=== PATIENT | male | born 1980 | race Caucasian/White ===

== ENCOUNTER 2020-02-21 13:47 | Outpatient (REF) | payer OTHER, SELFPAY | END 2020-02-21 13:48 | disposition home or self-care (01) | LOC: HO.LNP 13:47 | PROVIDERS: Visit Provider Hospitalist | DX: Z20.828 Contact with and (suspected) exposure to other viral communicable diseases (principal) | CPT/HCPCS: U0003 ==

== ENCOUNTER 2020-04-11 13:54 | Outpatient (REF) | payer OTHER, SELFPAY ==
--- NOTE | 2020-04-11 14:00 | XR_ITS ---
EXAMINATION: XR ELBOW, RIGHT CLINICAL INFORMATION: Pain COMPARISON: None TECHNIQUE: AP, lateral, and oblique views of the right elbow. FINDINGS: The bones and soft tissues are normal. No fracture or joint effusion. Alignment is anatomic. Joint spaces are maintained. XR/XR elbow RT 2V IMPRESSION: Normal right elbow.
== END 2020-04-11 13:55 | disposition home or self-care (01) ==
LOC: HO.XRAY 13:54
PROVIDERS: PCP Internal Medicine; Visit Provider Internal Medicine
DX: M25.521 Pain in right elbow (principal)
CPT/HCPCS: 73070

== ENCOUNTER → 2020-04-28 12:55 | Outpatient (BNVA) | payer OTHER, SELFPAY | PROVIDERS: PCP Internal Medicine; Visit Provider Physician Assistant | DX: Z76.89 Persons encountering health services in other specified circumstances (principal) ==

== ENCOUNTER 2020-05-18 15:46 | Outpatient (REF) | payer OTHER, SELFPAY ==
--- NOTE | ~2020-05-18 | MR_ITS ---
EXAMINATION: MR ELBOW WITHOUT CONTRAST, RIGHT CLINICAL INFORMATION: Right elbow pain and limited range of motion. COMPARISON: None TECHNIQUE: Multisequence MR imaging of the right elbow was performed without contrast on a high-field strength scanner. FINDINGS: Evaluation is somewhat limited secondary to patient motion. Ulnar collateral ligament: Intact. Common flexor tendon: Intact. Radial collateral ligament: Intact. Common extensor tendon: Intact. Biceps/triceps tendon: Full-thickness tear of the distal biceps tendon with retraction of the tendon fibers and a resultant tendon gap measuring approximately 1.9 cm in craniocaudal dimension. The torn tendon fibers are thickened and irregular. Fluid within the distal tendon sheath. Mild adjacent soft tissue edema. Intact distal triceps tendon. Articular cartilage/bone: Intact. Ulnar nerve: Intact. Joint fluid/soft tissues: Within normal limits. MR/MR elbow RT wo con IMPRESSION: Full-thickness tear of the distal biceps tendon with tendon retraction measuring 1.9 cm in craniocaudal dimension. The torn tendon fibers are thickened and irregular. Mild fluid in the distal tendon sheath with adjacent soft tissue edema.
== END 2020-05-18 15:47 | disposition home or self-care (01) ==
LOC: HO.MRI 15:46
PROVIDERS: Visit Provider Physician Assistant
DX: S46.209A Unspecified injury of muscle, fascia and tendon of other parts of biceps, unspecified arm, initial encounter (principal)
CPT/HCPCS: 73221

== ENCOUNTER → 2020-05-25 13:23 | Outpatient (BNVA) | payer OTHER, SELFPAY | PROVIDERS: Visit Provider Physician Assistant ==

== ENCOUNTER → 2020-06-22 13:28 | Outpatient (BNVA) | payer OTHER, SELFPAY | PROVIDERS: PCP Internal Medicine; Visit Provider Physician Assistant ==

== ENCOUNTER 2020-07-05 10:43 | Outpatient (REF) | payer OTHER, SELFPAY | END 2020-07-05 10:44 | disposition home or self-care (01) | LOC: HO.LAB 10:43 | PROVIDERS: Visit Provider Internal Medicine | DX: Z20.822 Contact with and (suspected) exposure to COVID-19 (principal) | CPT/HCPCS: 36415; C9803; U0003; U0005 ==

== ENCOUNTER → 2020-08-02 13:55 | Outpatient (REF) | payer OTHER, SELFPAY | LOC: HO.SL 13:55 | PROVIDERS: PCP Internal Medicine; Visit Provider Internal Medicine | DX: G47.10 Hypersomnia, unspecified (principal); E66.9 Obesity, unspecified; R06.83 Snoring; R40.0 Somnolence; S46.211A Strain of muscle, fascia and tendon of other parts of biceps, right arm, initial encounter; X58.XXXA Exposure to other specified factors, initial encounter; Y93.9 Activity, unspecified; Y92.9 Unspecified place or not applicable; Y99.8 Other external cause status; Z88.8 Allergy status to other drugs, medicaments and biological substances; M10.9 Gout, unspecified; E78.00 Pure hypercholesterolemia, unspecified; I10 Essential (primary) hypertension; K21.9 Gastro-esophageal reflux disease without esophagitis; F10.10 Alcohol abuse, uncomplicated; E55.9 Vitamin D deficiency, unspecified; F17.210 Nicotine dependence, cigarettes, uncomplicated | CPT/HCPCS: 95806 ==

== ENCOUNTER 2020-08-15 09:30 | Outpatient (RCR) | payer OTHER, SELFPAY ==
--- NOTE | 2020-05-31 15:10 | MHC.OT.OEV ---
[address] [phone] F: [phone] Occupational Therapy Evaluation Diagnosis: Right Bicep Tear Date of Onset: 04/03/20 Attending Provider: Meño Gay PA-C Prescribed Treatment: Eval and Treat MD Follow Up Appointment: History of Current Condition: Tod was shoveling snow for neighbors after a snowstorm, felt a sharp burning pain in right arm, heard a pop and was unable to put any weight through arm. Went to PCP the next day, had x-ray and referred to ortho and MRI. MRI shows full thickness tear of distal bicep. 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 Enjoys fishing, playing hockey Living Situation, Family and/or Social Support: Lives w/ roommates Current Level of Function and Occupation Self Care, Employment, Leisure: Unable to lift anything heavy (more than a cup) Not playing hockey Sleep: Reports some numbness arm is slept on Driving: WFL, uses left hand Pain Assessment Pain Score: 4 Pain Scale Used: Numeric (0 - 10) Pain Location and Description: Burning pain at rest at bicep insertion/cubital fossa Aggravating Factors: Lifting, stiffness in the morning Alleviating Factors: Naproxen Nerve assessment Ulnar Nerve: WNL Median Nerve: WNL Radial Nerve: WNL Sensory Assessment Comments: Reports off and on again numbness/tinging, unspecified digits, worse at night Edema Assessment Upper Extremity: WNL Lower Extremity: WNL Comments: 30.8 cm B/L elbows AROM(PROM) Strength Elbow Flexion: R 148 L 145 Extension: R 8 L 5 Pronation: Supination: R 55 L 70 Comments: Tightness w/ R supination Flexion: R >4 L 5 Extension: R 5 L 5 Pronation: Supination: Comments: Submaximal MMT to bicep Digits Index MCP: PIP: DIP: Long MCP: PIP: DIP: Ring MCP: PIP: DIP: Small MCP: PIP: DIP: Comments: Gross Grasp: R 85lb L 130lb Lateral Pinch: Two-Point Pinch: Three-Jaw John: Comments: Mild discomfort in forearm and distal bicep Patient Education Primary Language: Icelandic 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 Patient demonstrates Patient verbalizes Barriers to Learning: None Readiness for Learning: Accepting Who was educated? Patient Comments: Plan of Care Assessment: 39 yo male presents about 8 weeks s/p right bicep tear while shoveling snow. 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 Elbow flexion tested at submaximal strength due to healing injury and he has been avoiding lifting and heavy gripping/use. He will benefit from cont'd therapy services for progression of strengthening and functional use while protecting healing bicep tear. STG Duration: 2 weeks Short Term Goals: Ind w/ HEP Ind w/ use of ice and heat appropriately Ind w/ joint protection Right gross grasp >90lb Right forearm supination WFL compared to left LTG Duration: 6 weeks Senior Care Goals: QuickDASH score <35 pts Gross grasp >100 lb Pain free w/ lifting >30lb weight box Pt return to work at least light duty conditions Frequency and Duration: The patient will be seen 2x/wk for 6 weeks Treatment Plan: Therapeutic Exercise Therapeutic Activity Home Exercise Program Patient Education Edema Control ADL Training Ultrasound Iontophoresis MHP Cold Packs Soft Tissue Mobilization Kinesiotaping Electronically Signed By: Gwen Renee OTR/L Please sign and return to therapist, Thank you for your referral.
--- NOTE | 2020-08-01 13:17 | MHC.OT.OP ---
[address] [phone] F: [phone] Occupational Therapy Progress Note Diagnosis: Right Bicep Tear Date of Evaluation: 05/31/20 Treatments to Date: 12 Subjective: I cut the weight back a bit I'm seeing Luz Mariaa on Friday, I'm going to ask her to release me for work Pain Score: 3 Pain Location: Right distal bicep w/ use (otherwise painfree at rest) Objective Measures: Gross Grasp R 110lb L 130 lb Quickdash score 41 Status: Progressing Assessment: Four months s/p bicep tear, still w/ moderate pain w/ low weights. 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 Short Term Goals: Ind w/ HEP (met) Ind w/ use of ice and heat appropriately (met) Ind w/ joint protection (met) Right gross grasp >90lb (met) Right forearm supination WFL compared to (met) Salvage Worker Goals: QuickDASH score <35 pts Gross grasp >100 lb (met) Pain free w/ lifting >30lb weight box Pt return to work at least light duty conditions Frequency and Duration: The patient will be seen 2x/wk for 3 weeks Treatment Plan: Therapeutic Exercise Therapeutic Activity Home Exercise Program Patient Education Edema Control ADL Training Ultrasound Iontophoresis MHP Cold Packs Soft Tissue Mobilization Kinesiotaping Electronically Signed By: MAGDA Bueno/Ketan
--- NOTE | 2020-09-18 11:31 | MHC.OT.DC ---
[address] [phone] F: [phone] Occupational Therapy Discharge Note Provider: Meoñ Gay PA-C Diagnosis: Right Bicep Tear Date of Evaluation: 05/31/20 Date of Discharge: 09/18/20 Treatments to Date: 16 Cancellations to Date: 0 No Shows to Date: 0 Discharge Summary: Tod was being seen in OT for conservative treatment of distal bicep tear. He has had low pain w/ light daily activities and was progressing strengthening, but has not been seen in the clinic for over a month. I anticipate he will do well w/ modifications to daily activities for full functional return. Electronically Signed By: Gwen Renee OTR/L Please Sign and return to therapist, thank you for your referral.
== END 2020-09-18 11:32 | disposition other institution (70) ==
LOC: HO.OT 09:30
PROVIDERS: PCP Internal Medicine; Visit Provider Physician Assistant
DX: S46.20 Unspecified injury of muscle, fascia and tendon of other parts of biceps (principal)
CPT/HCPCS: 97033; 97035; 97110; 97140; 97165

== ENCOUNTER → 2020-08-15 10:09 | Outpatient (BNVA) | payer OTHER, SELFPAY | PROVIDERS: PCP Internal Medicine; Visit Provider Internal Medicine ==

== ENCOUNTER → 2020-09-25 09:34 | Outpatient (BNVA) | payer OTHER, SELFPAY | PROVIDERS: PCP Internal Medicine; Visit Provider Internal Medicine ==

== ENCOUNTER 2020-10-29 16:51 | Emergency (ER) | payer OTHER, MEDICAID, SELFPAY ==
--- NOTE | ~2020-10-29 | CT_ITS ---
EXAMINATION: CT ABDOMEN AND PELVIS WITHOUT CONTRAST CLINICAL INFORMATION: Flank pain. Hematuria. COMPARISON: Abdominal ultrasound dated 03/19/2017. TECHNIQUE: Multidetector volumetric imaging was performed from the superior aspect of the liver through the pubic symphysis. Sagittal and coronal reformatted images were obtained on the technologist's workstation. This CT examination was performed using dose optimization techniques as appropriate, variously including the following: Automated exposure control. Adjustment of mA and/or kV according to patient size (this includes techniques or standardized protocols for targeted exams where dose is matched to indication/reason for exam; i.e. extremities or head). Use of iterative reconstruction technique. DLP: 765 mGy-cm FINDINGS: LUNG BASES: The visualized lung bases are unremarkable. LIVER, GALLBLADDER, AND BILIARY TREE: The liver is normal in size, shape, and attenuation. Focal fatty infiltration adjacent to the falciform ligament. No focal hepatic lesion or biliary ductal dilatation is present. The gallbladder is unremarkable with no evidence of radiopaque gallstones, gallbladder wall thickening, or obvious pericholecystic inflammatory changes. PANCREAS: Unremarkable. SPLEEN: Unremarkable. ADRENAL GLANDS: Unremarkable. KIDNEYS AND URETERS: The kidneys are normal in size, shape, and attenuation. No hydronephrosis, hydroureter, or calculi seen. No perinephric stranding. BLADDER: Partially distended and unremarkable. GASTROINTESTINAL TRACT: The colon is nondistended. There is diffuse circumferential bowel wall thickening throughout the colon with adjacent stranding, most prominent at the ascending, transverse, and proximal descending colon. Findings are consistent with acute colitis. There are scattered diverticula. No evidence of perforation or abscess formation. Small, sliding hiatal hernia. No small or large bowel obstruction. Unremarkable appendix. PERITONEAL CAVITY: No intra-abdominal free air or free fluid. No intra-abdominal mass or organized fluid collection/abscess formation. ABDOMINAL WALL: Small, fat-containing right inguinal hernia. Tiny, fat-containing periumbilical hernia. LYMPH NODES: Normal. VASCULAR: Unremarkable. PELVIC VISCERA: The prostate and seminal vesicles are unremarkable. OSSEOUS STRUCTURES: Unremarkable. CT/CT abdomen pelvis wo con IMPRESSION: 1. Diffuse colonic wall thickening with associated stranding/inflammatory change. Findings are consistent with acute colitis. Diverticulosis. No evidence of perforation or abscess formation. 2. Small, sliding hiatal hernia. 3. No intra-abdominal mass, lymphadenopathy, or ascites.
[2020-10-29 17:08] VITALS: BP 146/87; PULSE 66; RESP 18; TEMP 36.7; O2SAT 97; BMI 35.7
[2020-10-29 17:38] LABS: MANUAL DIFF FLAG NO
[2020-10-29 17:39] LABS: Basophils Absolute Auto 0.1 X10*3/uL (0.0-0.2); Basophils Percent Auto 0.5 % (0-2); Eosinophils Absolute Auto 0.1 X10*3/uL (0.0-0.4); Eosinophils Percent Auto 0.7 % (0-4); Hematocrit 45.4 % (42-52); Hemoglobin 15.9 g/dl (14.0-18.0); Imm Gran Abs Auto 0.07 X10*3/uL (0.00-0.03); Imm Gran Pct Auto 0.6 % (0.0-0.4); Lymphocytes Absolute Auto 1.4 X10*3/uL (1.2-4.9); Lymphocytes Percent Auto 12.3 % (20-40); Mean Corpuscular Hemoglobin 31.5 pg (27.0-33.0); Mean Corpuscular Volume 89.9 fL (80-98); Mean Platelet Volume 8.9 fL (9.4-12.4); Monocytes Absolute Auto 1.1 X10*3/uL (0.1-1.2); Monocytes Percent Auto 9.7 % (2-11); Neutrophils Absolute Auto 8.7 X10*3/uL (2.0-8.3); Neutrophils Percent Auto 76.2 % (45-73); Platelet Count 303 X10*3/uL (160-400); Red Blood Count 5.05 X10*6/uL (4.60-5.80); Red Cell Distribution Width 12.7 % (11.0-16.0); White Blood Count 11.4 X10*3/uL (4.8-10.8)
[2020-10-29 17:40] LABS: Glucose Urine UA NEG (NEG); Leukocyte Esterase Urine NEG (NEG); Nitrite Urine NEG (NEG); Specific Gravity - Urine >= 1.030 (1.005-1.025); Urine Blood 2+ (NEG); Urine Ketones NEG (NEG); Urine Protein TRACE MG/DL (NEG-TRACE)
[2020-10-29 17:43] LABS: Appearance Urine CLEAR; Color Urine YELLOW
[2020-10-29 17:51] LABS: RBC Urine 0-2 /HPF (0); Squamous Epithelial Cell Urine 1+ /LPF; WBC Urine 0-2 /HPF (0-4)
[2020-10-29 18:05] LABS: Alanine Aminotransferase 60 U/L (0-40); Albumin Level 4.5 g/dL (3.5-5.0); Alkaline Phosphatase 66 U/L (39-117); Anion Gap 15 (12-20); Aspartate Amino Transferase 38 U/L (5-37); Bilirubin Total 0.4 mg/dL (0.0-1.0); Blood Urea Nitrogen 8 mg/dL (9-16); Calcium 9.8 mg/dL (8.4-10.2); Carbon Dioxide 23 mmol/L (22-29); Chloride 107 mmol/L (96-108); Creatinine Clr Calc Pharmacy 126.2; Estimated Glomerular Filt Rate > 60; Glucose Random 131 mg/dL (60-115); Lipase 16 U/L (8-78); Potassium 3.9 mmol/L (3.3-5.1); Sodium 141 mmol/L (135-145); Total Protein 7.5 g/dL (6.5-8.0)
--- NOTE | 2020-10-29 19:32 | ED.GENADULT ---
HPI - General Adult General Chief complaint: General Medical Stated complaint: Fall/Hit head Source: patient Mode of arrival: ambulatory Limitations: no limitations History of Present Illness HPI narrative: 40-year-old male with past medical history of hypertension, hyperlipidemia, obesity, tobacco dependence, and sleep apnea presents with injury sustained from a fall. Patient stated that he was drinking alcohol yesterday night in excess, tripped and fell, landed on his abdomen in his head. Does not report any head pain or loss of consciousness. States that his abdomen hurts diffusely, has had nausea, vomiting, and a few episodes of diarrhea. He also has not been able to eat or drink because of pain and nausea. Does not report fevers, chills, chest pain or pressure, abdominal distention, dysuria, hematuria, inability to class flatus, dizziness code week is covered changes in vision, or edema. Onset (ago): day(s) Location: abdomen Radiation: non-radiation Severity: moderate Quality: aching and constant Pain Consistency: constant Relieving factors: none Exacerbating factors: eating and movement Associated symptoms: nausea/vomiting Related Data Previous Rx's Medication Instructions Recorded omeprazole 20 mg capsule,delayed 20 mg PO DAILY #180 cap 02/15/20 release fluticasone propionate 110 2 puff PO BID #12 g 03/16/20 mcg/actuation HFA aerosol inhaler albuterol sulfate 90 mcg/actuation 2 puff PO Q6H PRN #8.5 g 05/12/20 aerosol inhaler amoxicillin-pot clavulanate 1 tab PO Q12H 10 Days #20 tab 10/29/20 [Augmentin] oxycodone 5 mg PO Q8H PRN #3 tab 10/29/20 Allergies Allergy/AdvReac Type Severity Reaction Status Date / Time metronidazole [From FLAGYL] Allergy Severe SWELLING Verified 10/29/20 17:07 THROAT Review of Systems Review of Systems: Constitutional: No Weight loss, No Fever, No Chills, No Night Sweats, No Fatigue, No Malaise ENT/Mouth: No Hearing loss, No Ear Pain, No Nasal Congestion, No Sinus Pain, No Hoarseness, No sore throat, No Rhinorrhea, No Swallowing Difficulty Eyes: No Eye Pain, No Swelling, No Redness, No Foreign Body, No Discharge, No Vision Changes Cardiovascular: No Chest Pain, No SOB, No Dyspnea on Exertion, No Orthopnea, No Edema, No Palpitations Respiratory: No Cough, No Sputum, No Wheezing, No Smoke Exposure, No Dyspnea Gastrointestinal: Positive Nausea, Positive Vomiting, positive Diarrhea, positive abdominal Pain, No Hematochezia, No Melena Genitourinary: no irregular bleeding, No Dysuria, No Urinary Frequency, No Hematuria, No Urinary Incontinence, No Urgency, No Flank Pain, No Urinary Flow Changes, No Hesitancy Musculoskeletal: No joint pain, No Myalgias, No Joint Swelling Skin: No Skin Lesions, No rash Neuro: No Weakness, No Numbness, No Paresthesias, No Loss of Consciousness, No Dizziness, No Headache Psych: No Anxiety/Panic, No Depression, No SI/HI/AH/VH, No Social Issues Heme/Lymph: No Bruising, No Bleeding,No Lymphadenopathy Endocrine: No Polyuria, No Polydipsia, No Temperature Intolerance Yes all other systems are reviewed and are negative [facility], [facility] Past Medical History Attestation statement: The following information was validated with the patient. Source: old records reviewed Medical History Alcohol abuse Allergic rhinitis Asthma Fatty liver GERD (gastroesophageal reflux disease) Gout Hypercholesterolemia Hypertension Obesity (BMI 30-39.9) Obesity (BMI 30-39.9) ELIZABETH (obstructive sleep apnea) Tobacco abuse Vitamin D deficiency Surgical History History of inguinal hernia repair Family History Family History Father Hypertension Mother No problems noted. Brother No problems noted. Sister No problems noted. 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 - [employer]. Physical Exam Vital Signs: Vital Signs: Last Vital Signs Temp 98.1 F 10/29/20 22:19 Pulse 55 10/29/20 22:19 Resp 16 10/29/20 22:19 BP 164/94 H 10/29/20 22:19 Pulse Ox 97 10/29/20 22:19 Body Mass Index 35.7 Appearance: Alert. Oriented X3. Moderate acute distress. Eyes: Pupils equal, round and reactive to light. Sclera nonicteric ENT: Pharynx normal. Moist mucous membranes Neck: Normal inspection. Neck supple. No vertebral tenderness or step-offs noted. CVS: Normal heart rate and rhythm. Pulses normal. Respiratory: No respiratory distress. Breath sounds normal. Abdomen: Soft and diffusely tender. Skin: Skin warm and dry. Normal skin color. Normal skin turgor. Extremities: No lower extremity edema. Moves all extremities against resistance. Neuro: No motor deficit. No sensory deficit. Cranial nerves 2-12 intact. Course Course Course Narrative: 40-year-old male presents with abdominal pain, nausea, vomiting, diarrhea. Stated that he did drink excessive amounts of alcohol yesterday and did fall on his abdomen and hit his head. He is diffusely tender to the abdomen, otherwise physical exam is unremarkable, cranial nerves 2-12 intact, no focal neural deficits. Patient is afebrile, slightly hypertensive per baseline, and has normal sinus rhythm. Based on patient's history, there is suspicion for gastritis, gastroenteritis, pancreatitis, kidney stones. Will order CT scan of abdomen and pelvis. CBC indicates a white count of 11.4, AST 30 ALT 60, negative lipase. Negative urinalysis. CT scan of abdomen pelvis indicates colitis. Discussion with patient regarding plan of care, plan is to discharge home with p.o. antibiotics Augmentin. He has anaphylactic Ute allergic to Flagyl. He does understand its he feels worse, is unable to tolerate p.o. fluids that he should return to the emergency department immediately. Patient verbalized understanding of and agrees to plan to discharge home. Medical Decision Making Differential Diagnosis Differential Diagnosis: Gastritis, gastroenteritis, pancreatitis, colitis, renal colic, cholecystit Medical Records Medical records reviewed: Yes I reviewed the patient's medical records. Lab Data Lab results reviewed: Yes I reviewed the patient's lab results. Result diagrams: 10/29/20 17:29 10/29/20 17:29 Labs: Lab Results 10/29/20 10/29/20 10/29/20 Range/Units 17:29 17:29 17:29 WBC 11.4 H (4.8-10.8) X10*3/uL RBC 5.05 (4.60-5.80) X10*6/uL Hgb 15.9 (14.0-18.0) g/dl Hct 45.4 (42-52) % MCV 89.9 (80-98) fL MCH 31.5 (27.0-33.0) pg MCHC 35.0 (31.0-36.0) g/dl RDW 12.7 (11.0-16.0) % Plt Count 303 (160-400) X10*3/uL MPV 8.9 L (9.4-12.4) fL Immature Gran % (Auto) 0.6 H (0.0-0.4) % Neut % (Auto) 76.2 H (45-73) % Lymph % (Auto) 12.3 L (20-40) % Wake % (Auto) 9.7 (2-11) % Eos % (Auto) 0.7 (0-4) % Baso % (Auto) 0.5 (0-2) % Lymph # (Auto) 1.4 (1.2-4.9) X10*3/uL Wake # (Auto) 1.1 (0.1-1.2) X10*3/uL Eos # (Auto) 0.1 (0.0-0.4) X10*3/uL Baso # (Auto) 0.1 (0.0-0.2) X10*3/uL Abs Immat Gran (auto) 0.07 H (0.00-0.03) X10*3/uL Absolute Neuts (auto) 8.7 H (2.0-8.3) X10*3/uL Absolute Nucleated RBC 0.000 (0.0-0.012) X10*3/uL Nucleated RBC % (auto) 0.0 (0.0-0.2) /100WBC Sodium 141 (135-145) mmol/L Potassium 3.9 (3.3-5.1) mmol/L Chloride 107 (96-108) mmol/L Carbon Dioxide 23 (22-29) mmol/L Anion Gap 15 (12-20) BUN 8 L (9-16) mg/dL Creatinine 0.93 (0.5-1.4) mg/dL Estim Creat Clear Calc 126.2 Estimated GFR > 60 Random Glucose 131 H (60-115) mg/dL Calcium 9.8 (8.4-10.2) mg/dL Total Bilirubin 0.4 (0.0-1.0) mg/dL AST 38 H (5-37) U/L ALT 60 H (0-40) U/L Alkaline Phosphatase 66 (39-117) U/L Total Protein 7.5 (6.5-8.0) g/dL Albumin 4.5 (3.5-5.0) g/dL Lipase 16 (8-78) U/L Urine Color YELLOW Urine Appearance CLEAR Urine pH 6.0 (5.0-8.0) Ur Specific [place] >= 1.030 H (1.005-1.025) Urine Protein TRACE (NEG-TRACE) MG/DL Urine Glucose (UA) NEG (NEG) MG/DL Urine Ketones NEG (NEG) MG/DL Urine Blood 2+ H (NEG) Urine Nitrite NEG (NEG) Ur Leukocyte Esterase NEG (NEG) Urine RBC 0-2 (0) /HPF Urine WBC 0-2 (0-4) /HPF Ur Squamous Epith Cells 1+ /LPF Urine Bacteria NONE /LPF Imaging Data CT scan - abdomen: Attestation: I personally reviewed and interpreted this imaging study as follows: Radiologist's impression: EXAMINATION: CT ABDOMEN AND PELVIS WITHOUT CONTRAST CLINICAL INFORMATION: Flank pain. Hematuria. COMPARISON: Abdominal ultrasound dated 03/19/2017. TECHNIQUE: Multidetector volumetric imaging was performed from the superior aspect of the liver through the pubic symphysis. Sagittal and coronal reformatted images were obtained on the technologist's workstation. This CT examination was performed using dose optimization techniques as appropriate, variously including the following: Automated exposure control. Adjustment of mA and/or kV according to patient size (this includes techniques or standardized protocols for targeted exams where dose is matched to indication/reason for exam; i.e. extremities or head). Use of iterative reconstruction technique. DLP: 765 mGy-cm FINDINGS: LUNG BASES: The visualized lung bases are unremarkable. LIVER, GALLBLADDER, AND BILIARY TREE: The liver is normal in size, shape, and attenuation. Focal fatty infiltration adjacent to the falciform ligament. No focal hepatic lesion or biliary ductal dilatation is present. The gallbladder is unremarkable with no evidence of radiopaque gallstones, gallbladder wall thickening, or obvious pericholecystic inflammatory changes. PANCREAS: Unremarkable. SPLEEN: Unremarkable. ADRENAL GLANDS: Unremarkable. KIDNEYS AND URETERS: The kidneys are normal in size, shape, and attenuation. No hydronephrosis, hydroureter, or calculi seen. No perinephric stranding. BLADDER: Partially distended and unremarkable. GASTROINTESTINAL TRACT: The colon is nondistended. There is diffuse circumferential bowel wall thickening throughout the colon with adjacent stranding, most prominent at the ascending, transverse, and proximal descending colon. Findings are consistent with acute colitis. There are scattered diverticula. No evidence of perforation or abscess formation. Small, sliding hiatal hernia. No small or large bowel obstruction. Unremarkable appendix. PERITONEAL CAVITY: No intra-abdominal free air or free fluid. No intra-abdominal mass or organized fluid collection/abscess formation. ABDOMINAL WALL: Small, fat-containing right inguinal hernia. Tiny, fat-containing periumbilical hernia. LYMPH NODES: Normal. VASCULAR: Unremarkable. PELVIC VISCERA: The prostate and seminal vesicles are unremarkable. OSSEOUS STRUCTURES: Unremarkable. CT/CT abdomen pelvis wo con IMPRESSION: 1. Diffuse colonic wall thickening with associated stranding/inflammatory change. Findings are consistent with acute colitis. Diverticulosis. No evidence of perforation or abscess formation. 2. Small, sliding hiatal hernia. 3. No intra-abdominal mass, lymphadenopathy, or ascites. Discharge Plan Discharge Clinical Impression: Acute colitis Patient Disposition: Home, Self-Care Instructions: Colitis (ED) Additional Instructions: You were evaluated for abdominal pain, nausea and vomiting. CT scan of the abdomen and pelvis indicates colon infection called colitis. Please take Augmentin twice a day for the next 10 days. Prescribed oxycodone for pain management. Uses medication only to sleep this medication is a narcotic and has high risk for addiction and abuse. Do not drive, operate machinery or make important decisions while taking this medication. This medication is also constipating, please drink plenty of fluids and use Colace or MiraLax if you feel constipated. Please follow-up the primary care physician this week. If symptoms get worse or you develop fevers, chills, nausea and vomiting that does not resolve please return to the emergency department immediately. Thank you for choosing this emergency department for evaluation. Please follow-up with primary care physician as needed. Return to the emergency department for any new, concerning, or worsening symptoms. Prescriptions: New amoxicillin-pot clavulanate [Augmentin] 875-125 mg tablet 1 tab PO Q12H 10 Days Qty: 20 RF: 0 oxycodone 5 mg tablet 5 mg PO Q8H PRN (Reason: pain) Qty: 3 RF: 0 No Action omeprazole 20 mg capsule,delayed release(DR/EC) 20 mg PO DAILY Qty: 180 RF: 0 fluticasone propionate [Flovent HFA] 110 mcg/actuation HFA aerosol inhaler 2 puff PO BID Qty: 12 RF: 8 albuterol sulfate 90 mcg/actuation HFA aerosol inhaler 2 puff PO Q6H PRN (Reason: for wheezing) Qty: 8.5 RF: 0 Stand Alone Forms: Work/School Release Interventions: ED Discharge Assessment Last Done: 10/29/20 23:06 Discharge Date/Time: 10/29/20 22:24
[2020-10-29] MEDS: ondansetron HCL 4 MG/2 ML VIAL IVPUSH (20:14)
[2020-10-29] MEDS: 0.9 % Sodium Chloride 1,000 ML 999 ML IVCONT (20:15)
[2020-10-29 22:19] VITALS: BP 164/94; PULSE 55; RESP 16; TEMP 36.7; O2SAT 97
[2020-10-29] MEDS: Amoxicillin/Potassium Clav 875 MG TABLET PO (22:21)
== END 2020-10-29 22:24 | disposition home or self-care (01) ==
PROVIDERS: Emergency Provider Internal Medicine; PCP Internal Medicine
DX: S39.91XA Unspecified injury of abdomen, initial encounter (principal); K52.9 Noninfective gastroenteritis and colitis, unspecified; R10.9 Unspecified abdominal pain; F17.210 Nicotine dependence, cigarettes, uncomplicated; F10.129 Alcohol abuse with intoxication, unspecified; X58.XXXA Exposure to other specified factors, initial encounter; Y93.9 Activity, unspecified; Y92.9 Unspecified place or not applicable; Y99.9 Unspecified external cause status; Z79.899 Other long term (current) drug therapy; Z71.6 Tobacco abuse counseling; Y90.9 Presence of alcohol in blood, level not specified
CPT/HCPCS: 36415; 74176; 80053; 81001; 83690; 85025; 96365; 96375; 99284; J2405

== ENCOUNTER → 2020-11-28 09:06 | Outpatient (BNVA) | payer OTHER, MEDICAID, SELFPAY | PROVIDERS: PCP Internal Medicine; Visit Provider Internal Medicine ==

== ENCOUNTER 2021-03-12 16:32 | Outpatient (REF) | payer OTHER, SELFPAY ==
--- NOTE | ~2021-03-12 | XR_ITS ---
EXAMINATION: XR CHEST CLINICAL INFORMATION: Chest pain. COMPARISON: None TECHNIQUE: 2 views of the chest were obtained. FINDINGS: No significant abnormality is noted involving the heart, lungs, mediastinum, bony thorax or soft tissues. XR/XR chest 2V IMPRESSION: Unremarkable examination.
== END 2021-03-12 16:33 | disposition home or self-care (01) ==
LOC: HO.XRAY 16:32
PROVIDERS: PCP Internal Medicine; Visit Provider Nurse Practitioner Family
DX: R07.89 Other chest pain (principal); M54.9 Dorsalgia, unspecified
CPT/HCPCS: 71046

== ENCOUNTER → 2021-03-28 10:07 | Outpatient (BNVA) | payer OTHER, SELFPAY | PROVIDERS: PCP Internal Medicine; Visit Provider Internal Medicine | DX: J45.909 Unspecified asthma, uncomplicated (principal); J30.9 Allergic rhinitis, unspecified; G47.33 Obstructive sleep apnea (adult) (pediatric); E66.9 Obesity, unspecified; Z68.35 Body mass index [BMI] 35.0-35.9, adult | CPT/HCPCS: 99212 ==

== ENCOUNTER 2021-04-11 16:45 | Outpatient (REF) | payer OTHER, SELFPAY ==
[2021-04-11 18:36] LABS: Influenza A PCR NEGATIVE (Negative); Influenza B PCR NEGATIVE (Negative); Resp Syncy Virus RNA Qual PCR NEGATIVE (Negative); SARS COV2 PCR INHOUSE NEGATIVE (Negative)
== END 2021-04-11 16:46 | disposition home or self-care (01) ==
LOC: HO.LNP 16:45
PROVIDERS: Visit Provider Physician Assistant
DX: Z20.822 Contact with and (suspected) exposure to COVID-19 (principal); R51.9 Headache, unspecified
CPT/HCPCS: 0241U

== ENCOUNTER 2021-04-25 09:28 | Outpatient (REF) | payer OTHER, SELFPAY ==
--- NOTE | ~2021-04-25 | XR_ITS ---
EXAMINATION: XR KNEE, LEFT CLINICAL INFORMATION: Chronic left medial knee pain. Recent injuries. COMPARISON: None TECHNIQUE: Four views of the left knee. FINDINGS: No fracture or dislocation. No suprapatellar joint effusion. Joint spaces well maintained. No significant degenerative changes. No focal soft tissue swelling of the anterior knee. XR/XR knee LT 3V IMPRESSION: Unremarkable radiographs of the left knee.
== END 2021-04-25 09:29 | disposition home or self-care (01) ==
LOC: HO.XRAY 09:28
PROVIDERS: PCP Internal Medicine; Visit Provider Nurse Practitioner Family
DX: M25.562 Pain in left knee (principal)
CPT/HCPCS: 73562

== ENCOUNTER → 2021-06-25 09:34 | Outpatient (BNVA) | payer OTHER, SELFPAY | PROVIDERS: PCP Internal Medicine; Visit Provider Internal Medicine | DX: J45.909 Unspecified asthma, uncomplicated (principal); Z68.34 Body mass index [BMI] 34.0-34.9, adult; G47.33 Obstructive sleep apnea (adult) (pediatric); E66.9 Obesity, unspecified | CPT/HCPCS: 94010; 99212 ==

== ENCOUNTER → 2021-08-20 15:28 | Outpatient (BNVA) | payer OTHER, SELFPAY | PROVIDERS: PCP Internal Medicine; Referring Provider Internal Medicine; Visit Provider Surgery | DX: K40.90 Unilateral inguinal hernia, without obstruction or gangrene, not specified as recurrent (principal); K42.9 Umbilical hernia without obstruction or gangrene | CPT/HCPCS: 99202 ==

== ENCOUNTER 2021-09-20 11:37 | Outpatient (REF) | payer OTHER, SELFPAY ==
--- NOTE | ~2021-09-20 | XR_ITS ---
EXAMINATION: XR TOES, LEFT CLINICAL INFORMATION: Unspecified injury of the left foot COMPARISON: None TECHNIQUE: 3 views of the left toes were obtained. FINDINGS: Mildly displaced slightly oblique fracture involving the distal metadiaphysis of the third proximal phalanx. Joint spaces and alignment are otherwise maintained. Soft tissues are unremarkable. XR/XR toe LT min 2V IMPRESSION: Mildly displaced slightly oblique fracture involving the distal metadiaphysis of the third proximal phalanx.
== END 2021-09-20 11:38 | disposition home or self-care (01) ==
LOC: HO.HMGCX 11:37
PROVIDERS: PCP Internal Medicine; Visit Provider Internal Medicine
DX: S99.922A Unspecified injury of left foot, initial encounter (principal)
CPT/HCPCS: 73660

== ENCOUNTER 2021-10-02 06:04 | Day surgery (SDC) | payer OTHER, SELFPAY ==
[2021-09-25 14:04] VITALS: BMI 33.7
--- NOTE | 2021-10-01 09:44 | P.CONAN_ITS ---
Documented by User: Alyson Rowe NP 10/01/21 09:45 HPI - Anesthesia Eval Consult details Narrative: 41yo M for Left Hernia Repair Umbilical, Hernia Repair Inguinal with mesh PMFSH Active Problems Active Problems: All Active Problems (Updated 09/20/21 @ 11:35 by Jenn Tavera MD) Injury of toe on left foot (Acute) Umbilical hernia (Acute) Inguinal hernia of left side without obstruction or gangrene (Acute) Erectile dysfunction (Acute) Annual physical exam (Acute) Left knee pain (Acute) Headache (Acute) Productive cough (Acute) Right-sided chest wall pain (Acute) Tooth pain (Acute) Right-sided back pain (Acute) Bilateral knee pain (Acute) Colitis (Acute) Asthma (Acute) Allergic rhinitis (Acute) ELIZABETH (obstructive sleep apnea) (Acute) Obesity (BMI 30-39.9) (Acute) Impaired fasting blood sugar (Acute) Hypersomnia (Acute) Annual physical exam (Acute) Hypertension (Acute) Tobacco abuse (Acute) GERD (gastroesophageal reflux disease) (Acute) Hypercholesterolemia (Acute) Obesity (BMI 30-39.9) (Acute) Tear of biceps tendon (Acute) Medial epicondylitis (Acute) Acute sinusitis (Acute) Past Medical History Medical History Alcohol abuse Fatty liver Gout Vitamin D deficiency Family History Family History Father Hypertension Mother No problems noted. Brother No problems noted. Sister No problems noted. Surgical History Surgical History History of inguinal hernia repair Social History Social History Housing: House Are you a primary healthcare corporate account director to a significant other at home: No Do you presently have visiting nurse or other home services: No Alcohol intake: current Alcohol intake frequency: holidays/special occasions only Patient Tobacco Use Status: Current everyday Tobacco user Tobacco use type: Cigarette Cigarettes Per Day: 7 e-Cigarette/Vaping Use: Never Used Second Hand Smoke Exposure: No Use of substances other than those prescribed or required for medical reasons: No Are you DNR?: No Advance Directives: No Advance Directives Information Provided: Yes (brochure mailed) Advance Directives on File: No Eating poorly because of decreased appetite: No Nutrition Risks: No Nutritional Risk service: No Current occupational status: employed 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 - [employer]. Cognitive needs: No Hearing needs: No Vision needs: Yes (Glasses) Meds Allergies Allergy/AdvReac Type Severity Reaction Status Date / Time metronidazole [From FLAGYL] Allergy Severe SWELLING Verified 09/20/21 11:20 THROAT Exam Exam Date and Time: October 01, 2021 0944 Height,Weight and Vital Signs: Height 5 ft 8 in Weight 100.698 kg Assessment and Plan Assessment Anesthesia Assessment: Chart Reviewed Documented by User: Jennifer Cunha MD 10/02/21 07:48 [facility] Active Problems Active Problems: All Active Problems (Updated 09/20/21 @ 11:35 by Jenn Tavera MD) Injury of toe on left foot (Acute) Umbilical hernia (Acute) Inguinal hernia of left side without obstruction or gangrene (Acute) Erectile dysfunction (Acute) Annual physical exam (Acute) Left knee pain (Acute) Headache (Acute) Productive cough (Acute) Right-sided chest wall pain (Acute) Tooth pain (Acute) Right-sided back pain (Acute) Bilateral knee pain (Acute) Colitis (Acute) Asthma (Acute) Allergic rhinitis (Acute) ELIZABETH (obstructive sleep apnea) (Acute)- Uses CPAP machine Obesity (BMI 30-39.9) (Acute) Impaired fasting blood sugar (Acute) Hypersomnia (Acute) Annual physical exam (Acute) Hypertension (Acute)- patient denies Tobacco abuse (Acute) GERD (gastroesophageal reflux disease) (Acute) Hypercholesterolemia (Acute) Obesity (BMI 30-39.9) (Acute) Tear of biceps tendon (Acute) Medial epicondylitis (Acute) Acute sinusitis (Acute) Smoker-Last cigarette yesterday evening Past Medical History Medical History Alcohol abuse Fatty liver Gout Vitamin D deficiency Family History Family History Father Hypertension Mother No problems noted. Brother No problems noted. Sister No problems noted. Family history of problems with anesthesia: No Surgical History Surgical History History of inguinal hernia repair History of Problems with Anesthesia: No Social History Social History Housing: House Are you a primary healthcare corporate account director to a significant other at home: No Do you presently have visiting nurse or other home services: No Alcohol intake: current Alcohol intake frequency: holidays/special occasions only Patient Tobacco Use Status: Current everyday Tobacco user Tobacco use type: Cigarette Cigarettes Per Day: 7 e-Cigarette/Vaping Use: Never Used Second Hand Smoke Exposure: No Use of substances other than those prescribed or required for medical reasons: No Are you DNR?: No Advance Directives: No Advance Directives Information Provided: Yes (brochure mailed) Advance Directives on File: No Eating poorly because of decreased appetite: No Nutrition Risks: No Nutritional Risk service: No Current occupational status: employed 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 - [employer]. Cognitive needs: No Hearing needs: No Vision needs: Yes (Glasses) Meds Allergies Allergy/AdvReac Type Severity Reaction Status Date / Time metronidazole [From FLAGYL] Allergy Severe SWELLING Verified 09/20/21 11:20 THROAT Exam Height,Weight and Vital Signs: Height 5 ft 8 in Weight 100.698 kg Vital Signs Temp Pulse Resp BP Pulse Ox O2 Del Method 10/02/21 06:17 97.4 F 70 16 163/77 H 97 Room Air Airway Mallampati Class: III TM Dist: >3cm Neck ROM: Full Loose/Missing/Broken Teeth: No (Patient denies) Heart: RRR Lungs: CTAB Assessment and Plan Assessment Anesthesia Assessment: Anesthesia Plan Discussed Final Anesthetic Review Family History of Problems with Anesthesia: No History of Problems with Anesthesia: No NPO: Yes ASA Class: III Final Preanesthetic Review: No Changes in Pt Med Stat, Meds/Allgs Chart Reviewed, Consent Obtained/Reviewed and Anes Risks/Benef Reviewed Patient Risk: Intermediate Procedure Risk: Low Assessment/Block/Sedation in SS: Assess/Block/Sedation-SS Anesthetic Plan Anesthetic Plan: GA Disposition: Standard PACU
[2021-10-02] VITALS (9 sets, daily range): BP systolic 137–174; BP diastolic 74–105; PULSE 70–97; RESP 16–18; TEMP 36.3–37.3; O2SAT 94–97
[2021-10-02] MEDS: Lactated Ringers 1,000 ML 100 ML IVCONT (06:37)
--- NOTE | 2021-10-02 07:21 | MHC.SHP ---
Pre-Procedural Eval Section A Date of Service: 10/02/21 Section B Chief Complaint: Umbilical hernia without obstruction or gangrene Details of Present Illness: has reducible mass, left groin and umbilicus c/w hernias Relevant Family History (Specify if Yes): No Relevant Social History: None Present Medications: see Short Stay Collaborative assessment Medical History: Significant History (has hx of LIH repair, HTN,obesity, ELIZABETH, tobacco use) History of Previous Operations: Relevant previous surgery/procedure and date(s) Allergies: Allergies Allergy/AdvReac Type Severity Reaction Status Date / Time metronidazole [From FLAGYL] Allergy Severe SWELLING Verified 09/20/21 11:20 THROAT Review of Systems Sugical H&P ROS: Negative: Constitution, Cardiovascular, Respiratory, Neurological, Psychiatric, Hem-Onc, Allergic/Immunologic, Gastrointestinal, Genitourinary, Musculoskeletal, Integumentary, Endocrine and Eyes/Ears/Nose/Throat Exam Surgical H&P Exam: Normal: HEENT, Normal: Heart, Normal: Lungs, Normal: Extremities, Normal: Skin and Normal: Neurological and Significant Findings: Abdomen (umbilical hernia, LIH) Plan Diagnosis/Plan: Unchanged I have reviewed the history and physical and performed a pertinent physical examination on my patient. No changes have occurred unless specified.
--- NOTE | 2021-10-02 10:03 | P.OP_ITS ---
Operative Note Operative Note Date of Service: 10/02/21 Narrative: Preop Diagnosis: recurrent left inguinal hernia, and umbilical hernia Postop diagnosis: the same Procedure: repair of a recurrent left inguinal hernia with mesh, and repair and umbilical hernia with Ventralex mesh Surgeon: Jimy Crystal MD Physician General Internal Medicine: J CARLOS Martino The patient is a 41-year-old male with a reducible mass left groin as well as on the umbilicus consistent with an umbilical hernia as well as a left inguinal hernia. He actually had repair of a left inguinal hernia in 2018. He said that he did not have problems with this until the past few months. In view of discomfort on both sides, wanted to proceed with repair. He understood technique of repair of the recurrent left inguinal hernia as well as umbilical hernia with mesh. He was aware of the risks, benefits, and alternatives. He understood that anticipated some degree of difficulty with repair of left inguinal hernia in view of his previous surgery He was brought to the operating room. He was placed supine under general a nesthesia via endotracheal tube. A surgical time-out was done. The abdomen including the left groin was prepped and draped in the usual sterile fashion. A surgical time-out was done. The patient received cefazolin 2 g IV preoperatively. I infiltrated the planned line of incision on the supraumbilical area with lidocaine 1%. I made a supra umbilical transverse curvilinear incision using b lade 15. This carried down through the full-thickness of the skin and subcutaneous fat with electrocautery. I then lifted the umbilicus off as a flap once I had directly visualize the hernia. the hernia contents off of the umbilicus. I sharply dissected the hernia contents from the rest of subcutaneous layer and the umbilicus down to the fascial defect. I defined the fascial defect with sharp dissection. By doing so, as able to reduce the fat containing hernia completely through this defect. The defect was about 1 cm in size. I used a small-sized Ventralex and position this flat under the fascial defect. I secured the Prolene straps of the mesh to the fascial edge on both sides. I trimmed the foreign sepsis flush on the the level. I closed the fascial defect with a [id number] Maxon 1 stitch. We then proceeded to do the repair of the recurrent left inguinal hernia. I infiltrated the planned of incision with lidocaine 1%. Incision using blade 15. Along the previous incision. This carried down through the full- thickness of skin and subcutaneous fat. It is noted that there was note of significant fibrotic changes in the subcutaneous layer from his previous surgery. We had to do the dissection slowly and gently and fill able to visualize the external oblique aponeurosis. I bluntly dissected the external oblique aponeurosis to identify the external ring. Again there was note of a lot of scattering encountered in the external ring. Difficult to clearly identify the of the aponeurosis on the ring itself. I therefore proceeded to gently identify the rest of the cord contents past the ring. I was able to gently dissect the cord contents off of the rest of the thick subcutaneous layer. This was done bluntly with the gauze. We had to do a dissection in view of the significant scarring in the area. Eventually, after a careful dissection I was able to feel the vas deferens. I was able then gently dissect the cord to visualize the vas deferens. By doing so was able to identify the fat containing hernia with a sac. This was adherent to the rest of the cord. I separate this gently using dissection with the gauze. I was able to identify the defect on the previous repair site. Defect appeared to be a tiny 1 cm defect 2 bordering on the internal oblique medially and the old mesh laterally. I continued to dissect the contents of the hernia was all fat containing until I was able to reduce this completed through the very tiny defect. Since the entire defect was small and was note of significant scarring around this, I decided not to continue to identify the rest of the floor of the canal in view of the risk of injury to the vas deferens and the rest of the cord contents. The hernia defect was well-defined and I used a small-sized plug to secure this. I positioned the Prolene plug to force the defect and used the inner leaves of the plug to secure this to the fascial edges as well as the mesh. Once this appeared secure, I proceeded to then identify the rest of the cord contents. The vas deferens and the rest of the cord contents did not appear to be caught by the sutures. I had created an incision on the external oblique aponeurosis earlier which was part of the roof of the canal. I had earlier attempted to identify the internal ring by being up the external oblique aponeurosis in going more dis tally on the canal but we encountered a lot of fibrotic changes again so I had discontinued this approach. I closed this aponeurosis with a running Dexon 2-0 stitch I observed for hemostasis. Once hemostasis was ensured, IR proceeded to reapposed the thick subcutaneous layer Dexon 3-0 interrupted sutures. Skin closure was achieved with a running subcuticular Dexon 4-0 stitch as well. The subcutaneous layer of the umbilical hernia incision was reapposed with Dexon 3-0 interrupted sutures and skin closure was achieved on this as well with Dexon 4-0 subcuticular running stitch. All incisions were infiltrated with Marcaine 0.5% for postop analgesia. Steri-Strips and dressings were applied. The procedure was then completed The patient tolerated procedure well. There were no complication noted. Initial final counts of sponges and instruments were correct. Estimated blood loss was about 25 cc. The patient was extubated without difficulty and transferred to the recovery [facility] with stable vital signs.
[2021-10-02] MEDS: fentaNYL citrate/PF 100 MCG/2 ML VIAL 25 MCG IVPUSH ×4 (10:25→10:40)
[2021-10-02] MEDS: oxyCODONE HCl Immed Release 5 MG TABLET PO (10:25)
--- NOTE | 2021-10-02 11:14 | HO.POSTANES ---
Post Anesthesia Evaluation Post Anesthesia Evaluation Vital Signs: Vital Signs Temp Pulse Resp BP Pulse Ox O2 Del Method 10/02/21 10:50 80 16 141/80 H 96 Room Air 10/02/21 10:45 89 16 140/89 H 94 Room Air 10/02/21 10:40 83 18 148/76 H 96 Room Air 10/02/21 10:40 18 10/02/21 10:35 85 16 152/74 H 96 Room Air 10/02/21 10:35 16 10/02/21 10:30 89 18 153/82 H 95 Room Air 10/02/21 10:30 18 10/02/21 10:25 18 10/02/21 10:25 94 16 159/77 H 95 Room Air 10/02/21 10:20 99.2 F 97 16 174/105 H 95 Room Air 10/02/21 06:17 97.4 F 70 16 163/77 H 97 Room Air Anesthesia: General Mental Status: Awake Pain Control: Satisfactory Nausea/Vomiting: None Hydration: Adequate Anesthesia-Related Issues: No Anes. Related Issues
== END 2021-10-02 11:35 | disposition home or self-care (01) ==
PROVIDERS: PCP Internal Medicine; Visit Provider Surgery
PROC: (CPT 49585; principal; 2021-10-02 08:10)
PROC: (CPT 49585; 2021-10-02 08:10)
DX: K42.9 Umbilical hernia without obstruction or gangrene (principal); K40.91 Unilateral inguinal hernia, without obstruction or gangrene, recurrent; K76.0 Fatty (change of) liver, not elsewhere classified; K21.9 Gastro-esophageal reflux disease without esophagitis; I10 Essential (primary) hypertension; F10.10 Alcohol abuse, uncomplicated; E55.9 Vitamin D deficiency, unspecified; G47.33 Obstructive sleep apnea (adult) (pediatric); J45.909 Unspecified asthma, uncomplicated; Z79.51 Long term (current) use of inhaled steroids; Z79.899 Other long term (current) drug therapy; F17.210 Nicotine dependence, cigarettes, uncomplicated
CPT/HCPCS: 49585; 49520; C1781; J0131; J0690; J1100; J1885; J2250; J2405; J3010

== ENCOUNTER 2021-10-06 12:49 | Emergency (ER) | payer OTHER, SELFPAY ==
[2021-10-06 13:02] VITALS: BP 134/65; PULSE 58; RESP 18; TEMP 35.9; O2SAT 97; BMI 34.3
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
[2021-10-06] MEDS: Cyclobenzaprine HCl 5 MG TABLET PO (13:26)
[2021-10-06] MEDS: HYDROcodone Bit/Acetam 5/325 TABLET 1 TAB PO (14:26)
[2021-10-06 15:37] VITALS: BP 153/79; PULSE 78; RESP 20; TEMP 36.4; O2SAT 98
== END 2021-10-06 15:50 | disposition home or self-care (01) ==
PROVIDERS: Emergency Provider Emergency Medicine Emergency Medical Services; PCP Internal Medicine
DX: S39.91XA Unspecified injury of abdomen, initial encounter (principal); V43.52XA Car driver injured in collision with other type car in traffic accident, initial encounter; Y93.9 Activity, unspecified; Y92.410 Unspecified street and highway as the place of occurrence of the external cause; Y99.9 Unspecified external cause status
CPT/HCPCS: 99283

== ENCOUNTER 2022-01-01 13:54 | Outpatient (REF) | payer OTHER, SELFPAY ==
--- NOTE | ~2022-01-01 | XR_ITS ---
EXAMINATION: XR FOOT, RIGHT CLINICAL INFORMATION: Nail entering through skin COMPARISON: 02/15/2016 TECHNIQUE: AP, lateral, and oblique views of the right foot. FINDINGS: Osseous alignment is anatomic. No acute fracture is seen. No radiopaque foreign body or significant focal soft tissue abnormality identified. XR/XR foot RT min 3V IMPRESSION: No acute findings identified.
== END 2022-01-01 13:55 | disposition home or self-care (01) ==
LOC: HO.HMGCX 13:54
PROVIDERS: PCP Internal Medicine; Visit Provider Internal Medicine
DX: S99.821A Other specified injuries of right foot, initial encounter (principal); W45.0XXA Nail entering through skin, initial encounter; Y93.9 Activity, unspecified; Y92.9 Unspecified place or not applicable; Y99.9 Unspecified external cause status
CPT/HCPCS: 73630

== ENCOUNTER → 2022-01-03 09:06 | Outpatient (BNVA) | payer OTHER, SELFPAY | PROVIDERS: PCP Internal Medicine; Visit Provider Internal Medicine | DX: G47.33 Obstructive sleep apnea (adult) (pediatric) (principal); E66.9 Obesity, unspecified; J45.909 Unspecified asthma, uncomplicated; Z68.34 Body mass index [BMI] 34.0-34.9, adult | CPT/HCPCS: 99212 ==

== ENCOUNTER 2022-02-05 12:00 | Outpatient (REF) | payer OTHER, SELFPAY ==
[2022-02-05 14:02] LABS: MANUAL DIFF FLAG NO
[2022-02-05 14:14] LABS: Basophils Absolute Auto 0.1 X10*3/uL (0.0-0.2); Basophils Percent Auto 1.5 % (0-2); Eosinophils Absolute Auto 0.3 X10*3/uL (0.0-0.4); Eosinophils Percent Auto 2.9 % (0-4); Hematocrit 45.2 % (42.0-52.0); Hemoglobin 15.4 g/dl (14.0-18.0); Imm Gran Abs Auto 0.18 X10*3/uL (0.00-0.03); Lymphocytes Absolute Auto 1.8 X10*3/uL (1.2-4.9); Lymphocytes Percent Auto 19.7 % (20-40); Mean Corpuscular HGB Conc 34.1 g/dl (31.0-36.0); Mean Corpuscular Hemoglobin 31.6 pg (27.0-33.0); Mean Corpuscular Volume 92.8 fL (80.0-98.0); Mean Platelet Volume 9.7 fL (9.4-12.4); Monocytes Absolute Auto 0.8 X10*3/uL (0.1-1.2); Monocytes Percent Auto 8.6 % (2-11); Neutrophils Absolute Auto 5.8 x10*3/uL (2.0-8.3); Neutrophils Percent Auto 65.3 % (45-73); Platelet Count 233 X10*3/uL (160-400); Red Blood Count 4.87 X10*6/uL (4.60-5.80); Red Cell Distribution Width 12.5 % (11.0-16.0); White Blood Count 8.9 X10*3/uL (4.8-10.8)
[2022-02-05 14:16] LABS: Estimated Average Glucose 108 mg/dL; Hemoglobin A1c % 5.4 %
[2022-02-05 14:20] LABS: Alanine Aminotransferase 37 U/L (0-40); Albumin Level 4.5 g/dL (3.5-5.0); Alkaline Phosphatase 52 U/L (39-117); Anion Gap 15 (12-20); Aspartate Amino Transferase 24 U/L (5-37); Bilirubin Total 0.4 mg/dL (0.0-1.0); Blood Urea Nitrogen 13 mg/dL (9-16); Calcium 9.3 mg/dL (8.4-10.2); Carbon Dioxide 22 mmol/L (22-29); Chloride 108 mmol/L (96-108); Cholesterol 186 mg/dL; Estimated Glomerular Filt Rate > 60; Glucose Random 118 mg/dL (60-115); HDL Cholesterol 35 mg/dL; LDL Cholesterol Calculated 85 mg/dl; Potassium 4.2 mmol/L (3.3-5.1); Sodium 141 mmol/L (135-145); Total Protein 7.4 g/dL (6.5-8.0); Triglycerides 331 mg/dL
[2022-02-05 14:43] LABS: Free T4 (Free Thyroxine) 0.84 ng/dL (0.71-1.85); Thyroid Stimulating Hormone 1.98 uIU/mL (0.32-4.0)
[2022-02-05 14:59] LABS: Folate 12.8 ng/mL (> or = 4.0); Vitamin B12 657 pg/mL (200-900)
[2022-02-06 04:16] LABS: HBS Num1 6.26 mIU/mL (0-7.99); HBc Num1 0.22 S/CO (0.00-0.79); HBsAGNum1 0.21 S/CO (0.00-0.99); Hepatitis B Core Antibody Nonreactive (Nonreactive); Hepatitis B Surface Antigen Negative (Negative); ~HepC Num1 0.17 S/CO (0.00-0.79); ~Hepatitis B Surface Antibody NONREACTIVE (Nonreactive); ~Hepatitis C Antibody Nonreactive (Nonreactive)
== END 2022-02-05 12:01 | disposition home or self-care (01) ==
LOC: HO.HMGCLDS 12:00
PROVIDERS: PCP Internal Medicine; Visit Provider Internal Medicine
DX: E78.00 Pure hypercholesterolemia, unspecified (principal); R73.01 Impaired fasting glucose; R79.89 Other specified abnormal findings of blood chemistry; I10 Essential (primary) hypertension
CPT/HCPCS: 36415; 80053; 80061; 82607; 82746; 83036; 84439; 84443; 85025; 86704; 86706; 86803; 87340

== ENCOUNTER 2022-02-06 14:01 | Outpatient (REF) | payer OTHER, SELFPAY ==
--- NOTE | ~2022-02-06 | CT_ITS ---
EXAMINATION: CT ABDOMEN AND PELVIS WITH CONTRAST CLINICAL INFORMATION: R10.32 - Left lower quadrant pain COMPARISON: CT abdomen and pelvis noncontrast 10/29/2020. Ultrasound abdomen 03/19/2017. TECHNIQUE: Multidetector volumetric images were obtained from the superior aspect of the liver through the pubic symphysis following administration 85 mL of Omnipaque 350 intravenous contrast. Sagittal and coronal reformatted images were obtained on the technologist's workstation. Oral contrast: Yes This CT examination was performed using dose optimization techniques as appropriate, variously including the following: *Automated exposure control *Adjustment of mA and/or kV according to patient size (this includes techniques or standardized protocols for targeted exams where dose is matched to indication/reason for exam; i.e. extremities or head) *Use of iterative reconstruction technique DLP: 773 mGy-cm FINDINGS: LUNG BASES: No airspace consolidation or effusion. Small pleural-based nodule left posterior lateral base under 5 mm, in retrospect stable. Finding is considered benign and no additional imaging follow-up recommended. LIVER, GALLBLADDER, AND BILIARY TREE: The liver is mildly enlarged measuring 20.4 cm in length, similar to prior exam. The liver surface is smooth. The parenchyma is homogeneous and normal in attenuation. There are 3 punctate hyperechoic dense foci right lobe under 5 mm, likely cysts and able. Focal fatty infiltration adjacent to the intersegmental fissure is also stable. The gallbladder is normal in size and shows no stone or sludge or wall thickening. No pericholecystic inflammatory changes. Common duct unremarkable. No intrahepatic biliary ductal dilatation. PANCREAS: There is no pancreatic ductal dilatation or peripancreatic inflammatory changes. There is chronic fullness of the pancreatic head and uncinate process, in retrospect stable from prior study. SPLEEN: Unremarkable. ADRENAL GLANDS: Unremarkable. KIDNEYS AND URETERS: The kidneys are normal in size, shape, and attenuation. No hydronephrosis, hydroureter, or perinephric stranding. There is a punctate calculus lower pole right kidney under 3 mm. BLADDER: Unremarkable. GASTROINTESTINAL TRACT: Small sliding hiatal hernia. No bowel obstruction or focal inflammatory changes in bowel or mesentery. The appendix is normal. There are numerous diverticula descending and sigmoid colon with some secondary muscular hypertrophy and pseudothickening from limited distention. No stranding in the adjacent mesentery. No pneumatosis or free air. No ascites or fluid collection. ABDOMINAL WALL: Tiny fat-containing umbilical hernia under 2 cm. Small stable fat-containing right inguinal hernia under 3 cm diameter. Smaller fat-containing left inguinal hernia is similar in size but now shows mild internal stranding at the level of the pubis along the spermatic cord. In addition, there is a 2 cm oval lower attenuation density in the sac possibly complex fluid or retracted testis. LYMPH NODES: No lymphadenopathy. VASCULAR: Unremarkable. PELVIC VISCERA: Unremarkable. OSSEOUS STRUCTURES: Unremarkable. CT/CT abdomen pelvis w IV con IMPRESSION: 1. Small fat-containing left inguinal hernia similar in size but now shows mild internal stranding at the level of the pubis along the spermatic cord. In addition, there is a 2 cm oval lower attenuation density in the sac possibly complex fluid or retracted testis. Clinically correlate. 2. Chronic prominence pancreatic head and uncinate process in retrospect similar to prior CT 2020. No pancreatic ductal distention. Pancreas could be further assessed with MR without and with gadolinium contrast. 3. Diverticulosis descending and sigmoid colon. No inflammatory changes or proximal obstruction. Fleischner guidelines were followed.
[2022-02-06] MEDS: iohexoL 350 MG/ML 100 ML INFUS..BTL IV (16:45)
[2022-02-06] MEDS: Barium Sulfate Oral (Berry) 450 ML ORAL.SUSP 900 ML PO (16:46)
== END 2022-02-06 14:02 | disposition home or self-care (01) ==
LOC: HO.CT 14:01
PROVIDERS: PCP Internal Medicine; Visit Provider Internal Medicine
DX: R10.32 Left lower quadrant pain (principal)
CPT/HCPCS: 74177; Q9967

== ENCOUNTER → 2022-02-21 10:04 | Outpatient (BNVA) | payer OTHER, SELFPAY | PROVIDERS: PCP Internal Medicine; Visit Provider Surgery | DX: K64.9 Unspecified hemorrhoids (principal); R93.5 Abnormal findings on diagnostic imaging of other abdominal regions, including retroperitoneum | CPT/HCPCS: 46600; 99212 ==

== ENCOUNTER 2022-03-11 08:15 | Outpatient (REF) | payer OTHER, SELFPAY ==
--- NOTE | ~2022-03-11 | MR_ITS ---
EXAMINATION: MR ABDOMEN WITHOUT AND WITH CONTRAST CLINICAL INFORMATION: Follow-up prominent pancreas on CT. COMPARISON: Previous CT of the abdomen and pelvis October 2020 and January 2022. TECHNIQUE: MR abdomen was performed without and with use of 10 mL intravenous Gadavist gadolinium contrast. Postcontrast images are performed in multiphase dynamic sequences. Imaging was performed in 3 planes. MRCP sequences were also performed. FINDINGS: LUNG BASES: The visualized lung bases are unremarkable. LIVER, GALLBLADDER, AND BILIARY TREE: The liver is upper normal in size right lobe measuring 18.5 cm in length. There is signal loss in the liver on [id number] sequences suggestive of fatty infiltration. There are several small bright on T2 liver lesions probably representing small cysts. The gallbladder is normal. Intrahepatic and extrahepatic bile ducts are normal in caliber. The common bile duct measures 3 mm. MRCP sequences are somewhat limited due to respiratory motion. The gallbladder is normal. PANCREAS: The head and uncinate process of the pancreas are prominent measuring up to 4.3 cm in AP dimension, upper normal 3 cm. The pancreas is normal in signal and demonstrates normal enhancement. No focal lesion. The main pancreatic duct does not appear dilated. SPLEEN: Normal. ADRENAL GLANDS: Normal. KIDNEYS AND URETERS: The kidneys are normal in size, shape, and enhance symmetrically. No hydronephrosis. No perinephric stranding. GASTROINTESTINAL TRACT: No bowel obstruction. No ascites or fluid collection. ABDOMINAL WALL: No significant hernia is appreciated. LYMPH NODES: No lymphadenopathy. VASCULAR: Unremarkable. OSSEOUS STRUCTURES: Marrow signal normal. MR/MR abdomen wo/w con IMPRESSION: Prominent head and uncinate process of the pancreas. No abnormal signal or focal lesion in the pancreas. Mild fatty infiltration of the liver. Small probable liver cysts. Diverticulosis of the colon.
== END 2022-03-11 08:16 | disposition home or self-care (01) ==
LOC: HO.MRI 08:15
PROVIDERS: Visit Provider Surgery
DX: R93.5 Abnormal findings on diagnostic imaging of other abdominal regions, including retroperitoneum (principal); R10.9 Unspecified abdominal pain; K62.5 Hemorrhage of anus and rectum; K40.90 Unilateral inguinal hernia, without obstruction or gangrene, not specified as recurrent
CPT/HCPCS: 74183; A9585

== ENCOUNTER → 2022-03-21 09:03 | Outpatient (BNVA) | payer OTHER, SELFPAY | PROVIDERS: PCP Internal Medicine; Visit Provider Surgery | DX: R93.5 Abnormal findings on diagnostic imaging of other abdominal regions, including retroperitoneum (principal) | CPT/HCPCS: 99212 ==

== ENCOUNTER → 2022-04-11 13:30 | Outpatient (BNVA) | payer OTHER, SELFPAY | PROVIDERS: PCP Internal Medicine; Visit Provider Physician Assistant | DX: Z13.89 Encounter for screening for other disorder (principal) ==

== ENCOUNTER → 2022-08-05 16:03 | Outpatient (BNVA) | payer OTHER, SELFPAY | PROVIDERS: PCP Internal Medicine; Visit Provider Internal Medicine | DX: G47.33 Obstructive sleep apnea (adult) (pediatric) (principal); J30.9 Allergic rhinitis, unspecified; J45.909 Unspecified asthma, uncomplicated; E66.9 Obesity, unspecified; Z68.33 Body mass index [BMI] 33.0-33.9, adult | CPT/HCPCS: 99212 ==

== ENCOUNTER 2023-01-16 15:41 | Outpatient (AMB) | payer OTHER, SELFPAY ==
--- NOTE | 2023-01-16 15:42 | MHC.PC.OV ---
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 Accompanied by: Self / Same As Patient Allergies metronidazole [From FLAGYL] Allergy (Severe, Verified 01/16/23 15:43) SWELLING THROAT Medication List - Last Reconciled 01/16/23 by Ashwin Menendez MD albuterol sulfate 90 mcg/actuation 2 puffs PO Q6H PRN bisacodyl (Dulcolax (bisacodyl)) 10 mg (2 x 5 mg) PO ONCE 1 day fluticasone propionate 50 mcg/actuation (Flonase Allergy Relief) 1 spray intranasal BID fluticasone propionate 110 mcg/actuation (Flovent HFA) 2 puffs PO BID montelukast (Singulair) 10 mg PO BEDTIME 90 days omeprazole 20 mg PO DAILY 90 days polyethylene glycol 3350 (Miralax) 238 grams PO ONCE 1 day sildenafil 50 mg PO DAILY PRN Tobacco use date assessed: 07/18/22 Dental Screening Dental Screen Date: 01/16/23 Did you have a dental visit in the last 12 months?: Yes Did you have a dental problem in the last 6 months where you did not have access to dental care?: No Was dental information given to patient?: Patient has dentist HPI 6 MONTH F/U HPI Details 42-year-old obese male smoker with obstructive sleep apnea GERD hypercholesterolemia hypertension impaired glucose tolerance last seen in July 2022 coming in for follow-up. Patient follows up with Pulmonary for the obstructive sleep apnea compliance sub optimal and advised need to continue. With asthma patient is on Flovent. [facility] Medical History LLQ abdominal pain Puncture wound of skin from metal nail Injury of toe on left foot Umbilical hernia Left knee pain Headache Productive cough Right-sided chest wall pain Tooth pain Colitis Asthma Allergic rhinitis ELIZABETH (obstructive sleep apnea) Obesity (BMI 30-39.9) Hypersomnia Hypertension Fatty liver Vitamin D deficiency Gout Tobacco abuse GERD (gastroesophageal reflux disease) Hypercholesterolemia Obesity (BMI 30-39.9) Alcohol abuse Tear of biceps tendon Medial epicondylitis Surgical History History of left inguinal hernia repair (~2021) History of umbilical hernia repair (~2021) History of inguinal hernia repair Family History Father Hypertension Mother No problems noted. Brother No problems noted. Sister No problems noted. 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 Cognitive needs: No Hearing needs: No Vision needs: Yes (Glasses) Questionnaire PHQ-9 Over the last 2 weeks, how often have you been bothered by any of the following problems? 1. Little interest or pleasure in doing things: not at all 2. Feeling down, depressed, or hopeless: not at all 3. Trouble falling or staying asleep, or sleeping too much: not at all 4. Feeling tired or having little energy: not at all 5. Poor appetite or overeating: not at all 6. Feeling bad about yourself - or that you are a failure or have let yourself or your family down: not at all 7. Trouble concentrating on things, such as reading the newspaper or watching television: not at all 8. Moving or speaking so slowly that other people could have noticed. Or the opposite - being so fidgety or restless that you have been moving around a lot more than usual: not at all 9. Thoughts that you would be better off or of hurting yourself in some way: not at all Total score: 0 Depression Screening Interpretation: Negative Depression Screening Done: Yes Source: Developed by Drs. Anthony Alfredo, Melinda Mccracken, Master Benito and colleagues, with an educational vanesa from [employer]. Thrive Questionnaire Date Thrive assessed: 07/18/22 MARLEN-7 AMB Questionnaire MARLEN-7 Date MARLEN - 7 assessed: 07/18/22 Source: Developed by Drs. Anthony Alfredo, Melinda Mccracken, Master Benito and colleagues, with an educational vanesa from [employer]. Physical exam (Primary Care) Vital Signs: Last Vital Signs Pulse 67 01/16/23 15:43 BP 160/90 H 01/16/23 15:43 Pulse Ox 97 01/16/23 15:43 Oxygen Delivery Method Room Air 01/16/23 15:43 BMI result Body Mass Index 34.5 Tobacco/Smoking Status: Tobacco use Status Tobacco use date assessed 07/18/22 01/16/23 15:46 Patient Tobacco Use Status Current everyday Tobacco 01/16/23 15:46 Tobacco use type Cigarette 01/16/23 15:46 e-Cigarette/Vaping Use Never Used 01/16/23 15:46 PHQ-9: PHQ-9 Score PHQ-9: Total score 0 01/16/23 16:03 Depression Screening Interpretation: Negative Thrive Assessment: Date of Thrive Assessment Date Thrive assessed 07/18/22 01/16/23 15:46 Const General: alert; No acute distress Eyes Conjunctivae: conjunctivae normal Resp Auscultation: clear to auscultation bilaterally Cardio Rate: regular rate Rhythm: regular rhythm GI Inspection: Yes normal to inspection Extrem General: Yes normal to inspection and No edema Office Procedures Flu Questionnaire Does the patient have a severe egg allergy?: No Does the patient have severe life threatening allergies?: No Does the patient have a fever or illness today?: No Has the patient ever had Guillain-Toone Syndrome?: No Has the patient ever had any past reaction to a flu shot?: No Immunizations flu vacc [id number] 6mos up(PF) 60 mcg(15 mcgx4)/0.5 mL IM syringe Performing Provider: Ashwin Menendez MD [facility] Administered by: RICCI Muir on 01/16/23 16:12 Dose Route Admin Location Dispensed Lot Number Expiration Date NDC [employer] 0.5 mL IM Left Deltoid 0.5 mL [id number] 10/12/23 88794-178-76 [facility] V[facility] Given Date VIS Provided VIS Publication Date 01/16/23 Single Vaccine 20 Eligibility Eligibility Date Funding Source [facility] Eligible-[place] 01/16/23 Private Assessment and Plan Assessment & Plan (1) Obesity (BMI 30-39.9): Code(s): E66.9 - Obesity, unspecified Plan: Diet and exercise (2) Hypercholesterolemia: Code(s): E78.00 - Pure hypercholesterolemia, unspecified Plan: Avoid fried foods, chicken skin, eggs, butter margarine, pastries and meat. Be it pork or beef they have a lot of cholesterol LDL goal of less than 130 and triglyceride of less than 150. (3) GERD (gastroesophageal reflux disease): Code(s): K21.9 - Gastro-esophageal reflux disease without esophagitis Qualifiers: Esophagitis presence: without esophagitis Qualified Code(s): K21.9 - Gastro-esophageal reflux disease without esophagitis Plan: Avoid the foods that causes that usually spicy foods, tomato products, juices, coffee, soda and foods that your sensitive to. After eating do not lie down, allow 3-4 hours before in lie down. And keep the head of bed above 30 degrees to avoid the acid from going up. On omeprazole (4) Tobacco abuse: Code(s): Z72.0 - Tobacco use Plan: Patient is strongly advised to stop smoking! (5) Hypertension: Code(s): I10 - Essential (primary) hypertension Qualifiers: Hypertension type: essential hypertension Qualified Code(s): I10 - Essential (primary) hypertension Plan: Continue with blood pressure medication. Decrease salt intake and exercise patient presently on no medication. (6) Impaired fasting blood sugar: Code(s): R73.01 - Impaired fasting glucose Plan: Decrease the amount of carbohydrate intake, pasta, bread, rice and potatoes are all sugar and that is aside from all the sweet stuff, remember that fruits are good but they are Sweet also. (7) ELIZABETH (obstructive sleep apnea): Comment: PATIENT IS ON CPAP WITH AUTO PAP MODE PRESSURE SETTING 6-20 CM . COMPLIANCE IS STILL SOMEWHAT SUBOPTIMAL AND I COUNSELED HIM TO USE FOR AT LEAST 5 HOURS EVERY NIGHT, AND MAKE SURE TO PUT THE CPAP ON BEFORE FALLING ASLEEP. * STRESSED THE IMPORTANCE OF USING CPAP EVERY NIGHT REGULARLY. Code(s): G47.33 - Obstructive sleep apnea (adult) (pediatric) Plan: Discussed importance of using his CPAP every night (8) Asthma: Comment: MILD TO MODERTAE , CONTROLLED . TX : CONT. FLOVENT -110 2 PUFFS BID AND PROAIR 2 PUFFS Q 4-6 HRS PRN . Code(s): J45.909 - Unspecified asthma, uncomplicated Orders: Orders Complete Blood Count Auto Diff Today K62.5 - Hemorrhage of anus and rectum Thyroid Stimulating Hormone Today K52.9 - Noninfective gastroenteritis and colitis, unspecified, K62.5 - Hemorrhage of anus and rectum Free T4 (Free Thyroxine) Today I10 - Essential (primary) hypertension Comprehensive Met. Panel Today K62.5 - Hemorrhage of anus and rectum Vitamin B12 and Folate Today I10 - Essential (primary) hypertension Medications: Refilled albuterol sulfate 90 mcg/actuation 2 puffs PO Q6H PRN 8.5 grams 0RF for wheezing I10 - Essential (primary) hypertension fluticasone propionate 50 mcg/actuation (Flonase Allergy Relief) administer into each nostril 1 spray intranasal BID 16 grams 3RF I10 - Essential (primary) hypertension fluticasone propionate 50 mcg/actuation (Flonase Allergy Relief) administer into each nostril 1 spray intranasal BID 16 grams 3RF I10 - Essential (primary) hypertension fluticasone propionate 110 mcg/actuation (Flovent HFA) 2 puffs PO BID 12 grams 8RF I10 - Essential (primary) hypertension Coding Level of Care Code Est Pt Level 4 (64242) Diagnoses Obesity (BMI 30-39.9) E66.9 Hypercholesterolemia E78.00 Gastroesophageal reflux disease without esophagitis K21.9 Esophagitis presence: without esophagitis Tobacco abuse Z72.0 Essential hypertension I10 Hypertension type: essential hypertension Impaired fasting blood sugar R73.01 ELIZABETH (obstructive sleep apnea) G47.33 Asthma J45.909
[2023-01-16 15:43] VITALS: BP 160/90; PULSE 67; O2SAT 97; BMI 34.5
== END 2023-01-16 16:09 | disposition home or self-care (01) ==
PROVIDERS: Visit Provider Internal Medicine
DX: E78.00 Pure hypercholesterolemia, unspecified (principal); Z68.34 Body mass index [BMI] 34.0-34.9, adult; E66.9 Obesity, unspecified; K21.9 Gastro-esophageal reflux disease without esophagitis; Z23 Encounter for immunization; I10 Essential (primary) hypertension; Z72.0 Tobacco use; R73.01 Impaired fasting glucose; G47.33 Obstructive sleep apnea (adult) (pediatric); J45.909 Unspecified asthma, uncomplicated
CPT/HCPCS: 90471; 90686; 99214

== ENCOUNTER 2023-02-03 15:55 | Outpatient (AMB) | payer OTHER, SELFPAY ==
[2023-02-03 16:05] VITALS: BP 110/78; PULSE 64; O2SAT 97; BMI 34.5
--- NOTE | 2023-02-03 16:05 | A.OFFVIS_ITS ---
Intake Vital Signs 02/03/23 16:05 Height 5 ft 8 in Weight 227 lb BMI 34.5 BP 110/78 Blood Pressure Location Lt brachial Position Sitting Pulse 64 Pulse Source Pulse Oximeter Pulse Oximetry (%) 97 Oxygen Delivery Method Room Air Intake Visit Reasons: Obstructive sleep apnea Intake Note: pt is here for follow up and states he is doing okay with cpap Radiology Therapist Required: No Allergies metronidazole [From FLAGYL] Allergy (Severe, Verified 02/03/23 16:21) SWELLING THROAT Medication List - Last Reconciled 02/03/23 by Barbi Watson MD albuterol sulfate 90 mcg/actuation 2 puffs PO Q6H PRN fluticasone propionate 50 mcg/actuation (Flonase Allergy Relief) 1 spray intranasal BID fluticasone propionate 110 mcg/actuation (Flovent HFA) 2 puffs PO BID montelukast (Singulair) 10 mg PO BEDTIME 90 days omeprazole 20 mg PO DAILY 90 days sildenafil 50 mg PO DAILY PRN Do you need a note to return to daycare/school/sports/work: No HPI Obstructive sleep apnea HPI Details This 42 years old gentleman is a case of obstructive sleep apnea, secondary to obesity, He has been using CPAP very regularly with the good effects. He is here for 6 months follow-up. He claims that he uses CPAP almost every night, except for 3-4 nights per month when he forgets to put it on. Usually he keeps the mask on for 5 hours at least, but on some nights it slips of during the sleep. He sleeps good and is happy with the use of CPAP. He has try to lose weight , but in the past 6 months it has been at a standstill. He have mild allergic rhinitis which flares up off and on and makes it is somewhat difficult to use the CPAP. [facility] Medical History LLQ abdominal pain Puncture wound of skin from metal nail Injury of toe on left foot Umbilical hernia Left knee pain Headache Productive cough Right-sided chest wall pain Tooth pain Colitis Asthma Allergic rhinitis ELIZABETH (obstructive sleep apnea) Obesity (BMI 30-39.9) Hypersomnia Hypertension Fatty liver Vitamin D deficiency Gout Tobacco abuse GERD (gastroesophageal reflux disease) Hypercholesterolemia Obesity (BMI 30-39.9) Alcohol abuse Tear of biceps tendon Medial epicondylitis Surgical History History of left inguinal hernia repair (~2021) History of umbilical hernia repair (~2021) History of inguinal hernia repair Family History Father Hypertension Mother No problems noted. Brother No problems noted. Sister No problems noted. 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 Cognitive needs: No Hearing needs: No Vision needs: Yes (Glasses) Review of Systems Const All systems reviewed & are unremarkable except as noted in HPI and below Eyes Reports no additional complaints ENT Reports no additional complaints and Reports nasal congestion (Daily, and he feels that nose is blocked.) Card Denies chest pain, Denies irregular heart rhythm, Denies leg edema and Reports dyspnea on exertion (MILD) Resp Reports cough (Mild intermittent), Reports dyspnea on exertion (MILD) and Reports wheezing (Occasional) GI Reports no additional complaints Reports no additional complaints Musc Reports back pain and Reports arthralgias Skin/Breast Reports system reviewed and no additional complaints, except as documented Neuro Reports no additional complaints Psych Reports no additional complaints Aller/Immun Reports wheezing (Occasional) Physical Exam Vital Signs: Last Vital Signs Pulse 64 02/03/23 16:05 BP 110/78 02/03/23 16:05 Pulse Ox 97 02/03/23 16:05 Oxygen Delivery Method Room Air 02/03/23 16:05 BMI result Body Mass Index 34.5 Const General: healthy appearing, comfortable, no acute distress, alert and awake Orientation/consciousness: patient oriented x3 HEENT Head: Yes normal to inspection General nose exam: No nasal polyps present, No nasal discharge present and Abnormal mucous membranes and turbinates present (Has chronic congestion of the nasal cavities with enlarged turbinates.) Face and sinus: Yes sinuses nontender Mouth: oropharynx normal Throat: Yes posterior oropharynx normal Eyes General: appearance normal, both eyes and all related structures Neck Neck: Yes normal visual inspection, Yes no lymphadenopathy, Yes trachea midline and Yes no JVD Thyroid: Thyroid normal Chest Chest palpation & inspection: normal inspection of the chest, normal palpation of entire chest wall and no tenderness Resp Other: Percussion note resonant, good breath sounds on both sides, no wheezes rhonchi or crepitations are heard. Cardio Palpation: normal PMI Rate: regular rate Rhythm: regular rhythm Heart sounds: no gallops and no murmurs Peripheral pulses: Peripheral pulses 2+ throughout GI Palpation (GI): Soft to palpation, nontender, No hepatosplenomegaly present and no masses Auscultation: normal bowel sounds Back/Spine/Pelvis Thoracic/Lumbar Spine: thoracic and lumbar spine normal to inspection Skin General skin exam: no rashes or lesions noted Neuro General: patient oriented x3 and no focal motor deficits Cranial nerves: Yes CN's II-XII intact bilaterally Extrem General: Yes normal to inspection, Yes no clubbing, cyanosis or edema and Yes no calf tenderness Psych Appearance: grossly normal and well kempt Speech and movement: Normal speech and movement present Results Reviewed Results Reviewed: COMPLIANCE REPORT IS REVIEWED. USED 25/30 NIGHTS, 83% OF THE NIGHTS. AVERAGE USAGE 5 HOURS 23 MINUTE, BUT ABOUT 6 NIGHTS HE USED LESS THAN 4 HOURS. PRESSURE USED IS WITHIN THE RANGE. THERE IS A MILD AIR LEAK. RESIDUAL AHI ONLY 0.4 Assessment & Plan Assessment & Plan (1) Obesity (BMI 30-39.9): Comment: BMI= 34.53. WEIGHT SEEMS TO BE AT A STANDSTILL. DISCUSSED WITH HIM ABOUT THE WEIGHT ISSUE, DIET RE-ENFORCED . ADVISED HIM TO CUT DOWN THE CALORIES INTAKE AND SHOULD WALKING ON A DAILY BASIS. Code(s): E66.9 - Obesity, unspecified (2) ELIZABETH (obstructive sleep apnea): Comment: PATIENT IS ON CPAP WITH AUTO PAP MODE PRESSURE SETTING 6-20 CM . COMPLIANCE IS BETTER AND ACCEPTABLE. ADVISED TO CONTINUE USING CPAP REGULARLY AND MORE THAN 4-5 HOURS PER NIGHT. Code(s): G47.33 - Obstructive sleep apnea (adult) (pediatric) (3) Allergic rhinitis: Comment: HAS CHRONIC RHINITIS, AND ENLARGED TURBINATES . IMPROVED WITH THE USE OF FOLONASE 2 SPRAYS IN EACH NOSTRIL DAILY. ADVISED TO USE REGULARLY . MAY USE OTC ANTIHISTAMINICS SUCH CLARITIN 10 MG OR ZYRTEC 10 MG PRN . ALSO TAKES MONTELUKAST 10 MG DAILY Code(s): J30.9 - Allergic rhinitis, unspecified (4) Asthma: Comment: MILD TO MODERTAE , CONTROLLED . TX : CONT. FLOVENT -110 2 PUFFS BID AND PROAIR 2 PUFFS Q 4-6 HRS PRN . Code(s): J45.909 - Unspecified asthma, uncomplicated Coding Level of Care Code Est Pt Level 3 (74345) Diagnoses Obesity (BMI 30-39.9) E66.9 ELIZABETH (obstructive sleep apnea) G47.33 Allergic rhinitis J30.9 Asthma J45.909
== END 2023-02-03 16:20 | disposition home or self-care (01) ==
PROVIDERS: PCP Internal Medicine; Visit Provider Internal Medicine
DX: E66.9 Obesity, unspecified (principal); G47.33 Obstructive sleep apnea (adult) (pediatric); J30.9 Allergic rhinitis, unspecified; J45.909 Unspecified asthma, uncomplicated
CPT/HCPCS: 99213

== ENCOUNTER → 2023-02-03 15:55 | Outpatient (BNVA) | payer OTHER, SELFPAY | PROVIDERS: Visit Provider Internal Medicine | DX: G47.33 Obstructive sleep apnea (adult) (pediatric) (principal); E66.9 Obesity, unspecified; J45.909 Unspecified asthma, uncomplicated; Z99.81 Dependence on supplemental oxygen; Z68.34 Body mass index [BMI] 34.0-34.9, adult | CPT/HCPCS: 99212 ==

== ENCOUNTER 2023-04-23 13:09 | Outpatient (REF) | payer OTHER, SELFPAY ==
[2023-04-23 16:04] LABS: MANUAL DIFF FLAG NO
[2023-04-23 16:14] LABS: Basophils Absolute Auto 0.1 X10*3/uL (0.0-0.2); Basophils Percent Auto 1.2 % (0-2); Eosinophils Absolute Auto 0.2 X10*3/uL (0.0-0.4); Hematocrit 45.3 % (42.0-52.0); Hemoglobin 15.1 g/dl (14.0-18.0); Imm Gran Abs Auto 0.17 X10*3/uL (0.00-0.03); Imm Gran Pct Auto 1.9 % (0.0-0.4); Lymphocytes Absolute Auto 2.2 X10*3/uL (1.2-4.9); Lymphocytes Percent Auto 24.8 % (20-40); Mean Corpuscular HGB Conc 33.3 g/dl (31.0-36.0); Mean Corpuscular Hemoglobin 31.2 pg (27.0-33.0); Mean Corpuscular Volume 93.6 fL (80.0-98.0); Mean Platelet Volume 10.1 fL (9.4-12.4); Monocytes Absolute Auto 0.8 X10*3/uL (0.1-1.2); Monocytes Percent Auto 9.2 % (2-11); Neutrophils Absolute Auto 5.4 x10*3/uL (2.0-8.3); Neutrophils Percent Auto 60.9 % (45-73); Platelet Count 293 X10*3/uL (160-400); Red Blood Count 4.84 X10*6/uL (4.60-5.80); White Blood Count 8.9 X10*3/uL (4.8-10.8)
[2023-04-23 16:25] LABS: Estimated Average Glucose 114 mg/dL; Hemoglobin A1c % 5.6 % (<6.0)
[2023-04-23 16:44] LABS: Alanine Aminotransferase 80 U/L (0-40); Albumin Level 4.3 g/dL (3.5-5.0); Alkaline Phosphatase 50 U/L (39-117); Anion Gap 14 (12-20); Aspartate Amino Transferase 40 U/L (5-37); Bilirubin Total 0.4 mg/dL (0.0-1.0); Blood Urea Nitrogen 11 mg/dL (9-16); Calcium 9.9 mg/dL (8.4-10.2); Carbon Dioxide 27 mmol/L (22-29); Chloride 105 mmol/L (96-108); Cholesterol 217 mg/dL (<200); Estimated Glomerular Filt Rate > 60; Glucose Random 96 mg/dL (60-115); HDL Cholesterol 36 mg/dL (>40); LDL Cholesterol Calculated 102 mg/dL (<100); Potassium 4.2 mmol/L (3.3-5.1); Sodium 142 mmol/L (135-145); Total Protein 7.6 g/dL (6.5-8.0); Triglycerides 397 mg/dL (<150)
[2023-04-23 16:53] LABS: Free T4 (Free Thyroxine) 0.77 ng/dL (0.71-1.85); Thyroid Stimulating Hormone 2.68 uIU/mL (0.32-4.0)
[2023-04-23 17:04] LABS: Folate 9.7 ng/mL (> or = 4.0); Vitamin B12 912 pg/mL (200-900)
== END 2023-04-23 13:10 | disposition home or self-care (01) ==
LOC: HO.HMGCLDS 13:09
PROVIDERS: PCP Internal Medicine; Visit Provider Internal Medicine
DX: K62.5 Hemorrhage of anus and rectum (principal); K52.9 Noninfective gastroenteritis and colitis, unspecified; R73.01 Impaired fasting glucose; I10 Essential (primary) hypertension; E78.00 Pure hypercholesterolemia, unspecified
CPT/HCPCS: 36415; 80053; 80061; 82607; 82746; 83036; 84439; 84443; 85025

== ENCOUNTER 2023-05-01 15:48 | Outpatient (AMB) | payer OTHER, SELFPAY ==
[2023-05-01 15:52] VITALS: BP 140/86; PULSE 76; O2SAT 97; BMI 37.4
--- NOTE | 2023-05-01 15:52 | A.OFFPC_ITS ---
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 Required: No Allergies metronidazole [From FLAGYL] Allergy (Severe, Verified 05/01/23 15:53) SWELLING THROAT Tobacco use date assessed: 05/01/23 Dental Screening Dental Screen Date: 05/01/23 Did you have a dental visit in the last 12 months?: Yes Did you have a dental problem in the last 6 months where you did not have access to dental care?: No Was dental information given to patient?: Patient has dentist HPI 3 MONTH F/U HPI Details 42-year-old obese male smoker with hyper cholesterolemia GERD hypertension impaired glucose tolerance obstructive sleep apnea and asthma coming in for follow-up last seen in January 2023. Review of the notes has seen Pulmonary sleep apnea compliant on CPAP and advised to continue using it on Flonase for rhinitis and for the asthma on Flovent. [facility] Medical History LLQ abdominal pain Puncture wound of skin from metal nail Injury of toe on left foot Umbilical hernia Left knee pain Headache Productive cough Right-sided chest wall pain Tooth pain Colitis Asthma Allergic rhinitis ELIZABETH (obstructive sleep apnea) Obesity (BMI 30-39.9) Hypersomnia Hypertension Fatty liver Vitamin D deficiency Gout Tobacco abuse GERD (gastroesophageal reflux disease) Hypercholesterolemia Obesity (BMI 30-39.9) Alcohol abuse Tear of biceps tendon Medial epicondylitis Surgical History History of left inguinal hernia repair (~2021) History of umbilical hernia repair (~2021) History of inguinal hernia repair Family History Father Hypertension Mother No problems noted. Brother No problems noted. Sister No problems noted. 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 - [employer]. Cognitive needs: No Hearing needs: No Vision needs: Yes (Glasses) Questionnaire PHQ-9 Over the last 2 weeks, how often have you been bothered by any of the following problems? 1. Little interest or pleasure in doing things: not at all 2. Feeling down, depressed, or hopeless: not at all 3. Trouble falling or staying asleep, or sleeping too much: not at all 4. Feeling tired or having little energy: not at all 5. Poor appetite or overeating: not at all 6. Feeling bad about yourself - or that you are a failure or have let yourself or your family down: not at all 7. Trouble concentrating on things, such as reading the newspaper or watching television: not at all 8. Moving or speaking so slowly that other people could have noticed. Or the opposite - being so fidgety or restless that you have been moving around a lot m ore than usual: not at all 9. Thoughts that you would be better off or of hurting yourself in some way: not at all Total score: 0 Depression Screening Interpretation: Negative Depression Screening Done: Yes Source: Developed by Drs. Anthony Alfredo, Master Mcnamara and colleagues, with an educational vanesa from [employer]. Thrive Questionnaire Date Thrive assessed: 07/18/22 AUDIT C Alcohol Use Questionnaire (AUDIT-C) 1. How often do you have a drink containing alcohol?: Never Total Score: 0 MARLEN-7 AMB Questionnaire MARLEN-7 Date MARLEN - 7 assessed: 05/01/23 Source: Developed by Drs. Anthony Alfredo, Master Mcnamara and colleagues, with an educational vanesa from [employer]. Physical exam (Primary Care) Vital Signs: Last Vital Signs Pulse 76 05/01/23 15:52 BP 140/86 H 05/01/23 15:52 Pulse Ox 97 05/01/23 15:52 Oxygen Delivery Method Room Air 05/01/23 15:52 BMI result Body Mass Index 37.4 Tobacco/Smoking Status: Tobacco use Status Tobacco use date assessed 05/01/23 05/01/23 15:53 Patient Tobacco Use Status Current everyday Tobacco 05/01/23 15:53 Tobacco use type Cigarette 05/01/23 15:53 e-Cigarette/Vaping Use Never Used 05/01/23 15:53 PHQ-9: PHQ-9 Score PHQ-9: Total score 0 05/01/23 16:00 Depression Screening Interpretation: Negative Thrive Assessment: Date of Thrive Assessment Date Thrive assessed 07/18/22 05/01/23 15:53 Const General: alert; No acute distress Eyes Conjunctivae: conjunctivae normal Resp Auscultation: clear to auscultation bilaterally Cardio Rate: regular rate Rhythm: regular rhythm GI Inspection: Yes normal to inspection Extrem General: Yes normal to inspection and No edema Assessment and Plan Assessment & Plan (1) ELIZABETH (obstructive sleep apnea): Comment: PATIENT IS ON CPAP WITH AUTO PAP MODE PRESSURE SETTING 6-20 CM . COMPLIANCE IS BETTER AND ACCEPTABLE. ADVISED TO CONTINUE USING CPAP REGULARLY AND MORE THAN 4-5 HOURS PER NIGHT. Code(s): G47.33 - Obstructive sleep apnea (adult) (pediatric) Plan: Patient follows up with Pulmonary and continue to use the CPAP more than 4 hours a night and benefits from this. (2) Asthma: Comment: MILD TO MODERTAE , CONTROLLED . TX : CONT. FLOVENT -110 2 PUFFS BID AND PROAIR 2 PUFFS Q 4-6 HRS PRN . Code(s): J45.909 - Unspecified asthma, uncomplicated Plan: Continue to use the controller Flovent and rinse mouth after using it. (3) Obesity (BMI 30-39.9): Comment: BMI= 34.53. WEIGHT SEEMS TO BE AT A STANDSTILL. DISCUSSED WITH HIM ABOUT THE WEIGHT ISSUE, DIET RE-ENFORCED . ADVISED HIM TO CUT DOWN THE CALORIES INTAKE AND SHOULD WALKING ON A DAILY BASIS. Code(s): E66.9 - Obesity, unspecified Plan: Diet and exercise (4) Impaired fasting blood sugar: Code(s): R73.01 - Impaired fasting glucose Plan: Decrease the amount of carbohydrate intake, pasta, bread, rice and potatoes are all sugar and that is aside from all the sweet stuff, remember that fruits are good but they are Sweet also. (5) Tobacco abuse: Code(s): Z72.0 - Tobacco use Plan: Patient is strongly advised to stop smoking! (6) Hypertension: Code(s): I10 - Essential (primary) hypertension Qualifiers: Hypertension type: essential hypertension Qualified Code(s): I10 - Essential (primary) hypertension Plan: Patient presently not on medication (7) Hypercholesterolemia: Code(s): E78.00 - Pure hypercholesterolemia, unspecified Plan: Avoid fried foods, chicken skin, eggs, butter margarine, pastries and meat. Be it pork or beef they have a lot of cholesterol LDL goal of less than 130 and triglyceride of less than 150. would like to hold off med and will do diet and exercise (8) GERD (gastroesophageal reflux disease): Code(s): K21.9 - Gastro-esophageal reflux disease without esophagitis Qualifiers: Esophagitis presence: without esophagitis Qualified Code(s): K21.9 - Gastro-esophageal reflux disease without esophagitis Plan: GERD plan Orders: Orders Lipid Panel 6 Months E78.00 - Pure hypercholesterolemia, unspecified Comprehensive Met. Panel 6 Months E78.00 - Pure hypercholesterolemia, unspecified Hemoglobin A1c 6 Months E78.00 - Pure hypercholesterolemia, unspecified Coding Level of Care Code Est Pt Level 4 (91260) Diagnoses ELIZABETH (obstructive sleep apnea) G47.33 Asthma J45.909 Obesity (BMI 30-39.9) E66.9 Impaired fasting blood sugar R73.01 Tobacco abuse Z72.0 Essential hypertension I10 Hypertension type: essential hypertension Hypercholesterolemia E78.00 Gastroesophageal reflux disease without esophagitis K21.9 Esophagitis presence: without esophagitis
[2023-05-01 16:17] VITALS: BP 138/80
== END 2023-05-01 16:32 | disposition home or self-care (01) ==
PROVIDERS: PCP Internal Medicine; Visit Provider Internal Medicine
DX: G47.33 Obstructive sleep apnea (adult) (pediatric) (principal); J45.909 Unspecified asthma, uncomplicated; E66.9 Obesity, unspecified; Z68.37 Body mass index [BMI] 37.0-37.9, adult; R73.01 Impaired fasting glucose; Z72.0 Tobacco use; I10 Essential (primary) hypertension; E78.00 Pure hypercholesterolemia, unspecified; K21.9 Gastro-esophageal reflux disease without esophagitis
CPT/HCPCS: 99214

== ENCOUNTER 2023-08-06 13:44 | Outpatient (AMB) | payer OTHER, SELFPAY ==
[2023-08-06 13:54] VITALS: BP 150/100; PULSE 85; TEMP 36.8; O2SAT 96; BMI 35.9
--- NOTE | 2023-08-06 13:54 | AM.OFFWIN_ITS ---
Intake Vital Signs 08/06/23 13:54 Height 5 ft 8 in Weight 236 lb BMI 35.9 BP 150/100 H Blood Pressure Location Lt brachial Position Sitting Pulse 85 Pulse Source Pulse Oximeter Temp 98.2 F Temp Source Temporal Artery Scan Pulse Oximetry (%) 96 Oxygen Delivery Method Room Air Intake Visit Reasons: EP Pulled Muscle - Back Intake Note: pt is here today for pulled muscle in back started friday Patient Tobacco Use Status: Current everyday Tobacco user Allergies metronidazole [From FLAGYL] Allergy (Severe, Verified 08/06/23 13:56) SWELLING THROAT Do you need a note to return to daycare/school/sports/work: No HPI HPI Comments History of Present Illness Details Patient is a 42yo M who presents with L sided back pain Ongoing since Friday Was removing a cooler from the attic and when he pulled it down, it was full and pulled his L sided back he did not fall or have direct trauma or injury Has been trying warm compress, a left over muscle relaxant and ibuprofen Muscle relaxant helps No abdominal pain, CP, SOB, syncope, hematuria, dysuria, urine or bowel incontinence Pain was 10/10 Worse with moving fact. Slow walking is okay No pain radiation or weakness PFSH Medical History LLQ abdominal pain Puncture wound of skin from metal nail Injury of toe on left foot Umbilical hernia Left knee pain Headache Productive cough Right-sided chest wall pain Tooth pain Colitis Asthma Allergic rhinitis ELIZABETH (obstructive sleep apnea) Obesity (BMI 30-39.9) Hypersomnia Hypertension Fatty liver Vitamin D deficiency Gout Tobacco abuse GERD (gastroesophageal reflux disease) Hypercholesterolemia Obesity (BMI 30-39.9) Alcohol abuse Tear of biceps tendon Medial epicondylitis Surgical History History of left inguinal hernia repair (~2021) History of umbilical hernia repair (~2021) History of inguinal hernia repair Family History Father Hypertension Mother No problems noted. Brother No problems noted. Sister No problems noted. 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 - [employer]. Cognitive needs: No Hearing needs: No Vision needs: Yes (Glasses) Review of Systems Const Denies chills and Denies fever(s) Eyes Denies blurry vision Card Denies chest pain and Denies dyspnea Resp Denies cough and Denies dyspnea GI Denies abdominal pain Denies hematuria and Denies difficulty urinating Musc Reports back pain, Denies numbness, Denies radiating pain into limb and Denies tingling Skin/Breast Denies erythema and Denies rash Neuro Denies numbness and Denies tingling Physical Exam Vital Signs: Last Vital Signs Temp 98.2 F 08/06/23 13:54 Pulse 85 08/06/23 13:54 BP 150/100 H 08/06/23 13:54 Pulse Ox 96 08/06/23 13:54 Oxygen Delivery Method Room Air 08/06/23 13:54 BMI result Body Mass Index 35.9 General: Non-toxic, NAD. Speaking full sentences. Skin: Warm dry throughout. No posterior back or flank ecchymosis or vesicular rash Respiratory: CTA bilaterally. No wheezes, rales or rhonchi Cardiac: RRR. No murmur Abdominal: BS present. No abdominal tenderness or CVAT. MSK: Full ROM extremities; negative SLR. No midline spinal tenderness. + tenderness to palpation L lower thoracic paravertebral muscle tenderness to palpation Neurology: A/O . No aphasia or facial droop. Gait without abnormality Psych: Good mood and affect Assessment & Plan Assessment & Plan (1) Back pain: Code(s): M54.9 - Dorsalgia, unspecified Qualifiers: Back pain location: low back pain Chronicity: acute Back pain laterality: left Sciatica presence: without sciatica Qualified Code(s): M54.50 - Low back pain, unspecified Plan: Patient seen and evaluated. No midline spinal tenderness or neurological complaints Robaxin; lethary, no alcohol or driving Ibuprofen and warm compress gentle stretch Follow up with PCP Patient gave verbal understanding and had no additional questions or concerns at time of discharge All questions answered Medications: New methocarbamol 750 mg PO TID PRN 14 tabs 0RF muscle spasm Coding Level of Care Code Est Pt Level 3 (55224) Diagnoses Acute left-sided low back pain without sciatica M54.50 Back pain location: low back pain Chronicity: acute Back pain laterality: left Sciatica presence: without sciatica
== END 2023-08-06 14:49 | disposition home or self-care (01) ==
PROVIDERS: PCP Internal Medicine; Visit Provider Physician Assistant
DX: M54.50 Low back pain, unspecified (principal)
CPT/HCPCS: 99213

== ENCOUNTER 2023-08-11 15:57 | Outpatient (AMB) | payer OTHER, SELFPAY ==
--- NOTE | 2023-08-11 16:07 | MHC.OFFVIS ---
Vital Signs 08/11/23 16:08 Height 5 ft 8 in Weight 240 lb 4.862 oz BMI 36.5 BP 140/90 H Blood Pressure Location Lt brachial Position Sitting Pulse 87 Pulse Source Pulse Oximeter Pulse Oximetry (%) 95 Oxygen Delivery Method Room Air Intake Visit Reasons: Obstructive sleep apnea Intake Note: pt is here for follow up and is still trying to use cpap more, pt needs refill on singular Payable Representative Required: No Allergies metronidazole [From FLAGYL] Allergy (Severe, Verified 08/11/23 16:20) SWELLING THROAT Medication List - Last Reconciled 08/11/23 by Barbi Watson MD albuterol sulfate 90 mcg/actuation 2 puffs PO Q6H PRN fluticasone propionate 110 mcg/actuation (Flovent HFA) 2 puffs PO BID fluticasone propionate 50 mcg/actuation (Flonase Allergy Relief) 1 spray intranasal BID methocarbamol 750 mg PO TID PRN montelukast (Singulair) 10 mg PO BEDTIME 90 days omeprazole 20 mg PO DAILY 90 days Do you need a note to return to daycare/school/sports/work: No HPI HPI Obstructive sleep apnea: Details: 42 years old gentleman grossly obese with diagnosis of obstructive sleep apnea, is here. For follow-up after 6 months Also has chronic allergic rhinitis and bronchial asthma. He uses CPAP regularly however during the past month he missed a few nights because he was out of town. His the nasal congestion is little bit more during the spring season. Bronchial asthma is well controlled 100 uses the albuterol inhaler only once in a while. He is still on Flovent -110 2 puffs b.i.d. and Singulair 10 mg daily. [facility] Medical History LLQ abdominal pain Puncture wound of skin from metal nail Injury of toe on left foot Umbilical hernia Left knee pain Headache Productive cough Right-sided chest wall pain Tooth pain Colitis Asthma Allergic rhinitis ELIZABETH (obstructive sleep apnea) Obesity (BMI 30-39.9) Hypersomnia Hypertension Fatty liver Vitamin D deficiency Gout Tobacco abuse GERD (gastroesophageal reflux disease) Hypercholesterolemia Obesity (BMI 30-39.9) Alcohol abuse Tear of biceps tendon Medial epicondylitis Surgical History History of left inguinal hernia repair (~2021) History of umbilical hernia repair (~2021) History of inguinal hernia repair Family History Father Hypertension Mother No problems noted. Brother No problems noted. Sister No problems noted. 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 - [employer]. Cognitive needs: No Hearing needs: No Vision needs: Yes (Glasses) Review of Systems Const All systems reviewed & are unremarkable except as noted in HPI and below Eyes Reports no additional complaints ENT Reports no additional complaints and Reports nasal congestion (Daily, and he feels that nose is blocked.) Card Denies chest pain, Denies irregular heart rhythm, Denies leg edema and Reports dyspnea on exertion (MILD) Resp Reports cough (Mild intermittent), Reports dyspnea on exertion (MILD) and Reports wheezing (Occasional) GI Reports no additional complaints Reports no additional complaints Musc Reports back pain and Reports arthralgias Skin/Breast Reports system reviewed and no additional complaints, except as documented Neuro Reports no additional complaints Psych Reports no additional complaints Aller/Immun Reports wheezing (Occasional) Physical Exam Vital Signs: Last Vital Signs Pulse 87 08/11/23 16:08 BP 140/90 H 08/11/23 16:08 Pulse Ox 95 08/11/23 16:08 Oxygen Delivery Method Room Air 08/11/23 16:08 BMI result Body Mass Index 36.5 Const General: healthy appearing, comfortable, no acute distress, alert and awake Orientation/consciousness: patient oriented x3 HEENT Head: Yes normal to inspection General nose exam: No nasal discharge present, Abnormal mucous membranes and turbinates present (Has chronic congestion of the nasal cavities with enlarged turbinates.) and Nasal polyp present (Moderate-sized nasal polyp in left nostril) Face and sinus: Yes sinuses nontender Mouth: oropharynx normal Throat: Yes posterior oropharynx normal Eyes General: appearance normal, both eyes and all related structures Neck Neck: Yes normal visual inspection, Yes no lymphadenopathy, Yes trachea midline and Yes no JVD Thyroid: Thyroid normal Chest Chest palpation & inspection: normal inspection of the chest, normal palpation of entire chest wall and no tenderness Resp Other: Percussion note resonant, good breath sounds on both sides, no wheezes rhonchi or crepitations are heard. Cardio Palpation: normal PMI Rate: regular rate Rhythm: regular rhythm Heart sounds: no gallops and no murmurs Peripheral pulses: Peripheral pulses 2+ throughout GI Palpation (GI): Soft to palpation, nontender, No hepatosplenomegaly present and no masses Auscultation: normal bowel sounds Back/Spine/Pelvis Thoracic/Lumbar Spine: thoracic and lumbar spine normal to inspection Skin General skin exam: no rashes or lesions noted Neuro General: patient oriented x3 and no focal motor deficits Cranial nerves: Yes CN's II-XII intact bilaterally Extrem General: Yes normal to inspection, Yes no clubbing, cyanosis or edema and Yes no calf tenderness Psych Appearance: grossly normal and well kempt Speech and movement: Normal speech and movement present Results Reviewed Results Reviewed: Compliance report is reviewed he used 22/30 nights, 73% Average use per night 6 hours 11 minutes There is a slight air leak Residual AHI only 0.8 Assessment & Plan Assessment & Plan (1) Allergic rhinitis: Comment: HAS CHRONIC RHINITIS, AND ENLARGED TURBINATES . IMPROVED WITH THE USE OF FOLONASE 2 SPRAYS IN EACH NOSTRIL DAILY. AND MONTELUKAST 10 MG DAILY . Code(s): J30.9 - Allergic rhinitis, unspecified Category: Medical Plan: ADVISED TO USE FLONASE 2 SPRAYS IN EACH NOSTRIL DAILY. MAY USE OTC ANTIHISTAMINICS SUCH CLARITIN 10 MG OR ZYRTEC 10 MG PRN CONTINUE MONTELUKAST 10 MG DAILY( REFILL ORDERED) (2) Asthma: Comment: MILD TO MODERTAE , CONTROLLED . Code(s): J45.909 - Unspecified asthma, uncomplicated Category: Medical Plan: TX : CONT. FLOVENT -110 2 PUFFS BID AND PROAIR 2 PUFFS Q 4-6 HRS PRN . (3) ELIZABETH (obstructive sleep apnea): Comment: PATIENT IS ON CPAP WITH AUTO PAP MODE PRESSURE SETTING 6-20 CM . COMPLIANCE IS FAIR AND HE IS SLEEPING WELL. Code(s): G47.33 - Obstructive sleep apnea (adult) (pediatric) Category: Medical Plan: ADVISED TO CONTINUE USING CPAP REGULARLY AND MORE THAN 5 HOURS PER NIGHT. (4) Obesity (BMI 30-39.9): Comment: BMI= 36.5 WEIGHT SEEMS TO BE AT A STANDSTILL. Code(s): E66.9 - Obesity, unspecified Category: Medical Plan: DISCUSSED WITH HIM ABOUT THE WEIGHT ISSUE, DIET RE-ENFORCED . ADVISED HIM TO CUT DOWN THE CALORIES INTAKE AND SHOULD WALKING ON A DAILY BASIS. Medications: Refilled montelukast (Singulair) 10 mg PO BEDTIME 90 days 90 tabs 5RF ALLERGIC RHINITIS J45.909 - Unspecified asthma, uncomplicated Coding Level of Care Code Est Pt Level 3 (30995) Diagnoses Allergic rhinitis J30.9 Asthma J45.909 ELIZABETH (obstructive sleep apnea) G47.33 Obesity (BMI 30-39.9) E66.9
[2023-08-11 16:08] VITALS: BP 140/90; PULSE 87; O2SAT 95; BMI 36.5
== END 2023-08-11 16:21 | disposition home or self-care (01) ==
PROVIDERS: PCP Internal Medicine; Visit Provider Internal Medicine
DX: J30.9 Allergic rhinitis, unspecified (principal); J45.909 Unspecified asthma, uncomplicated; G47.33 Obstructive sleep apnea (adult) (pediatric); E66.9 Obesity, unspecified
CPT/HCPCS: 99213

== ENCOUNTER → 2023-08-11 15:57 | Outpatient (BNVA) | payer OTHER, SELFPAY | PROVIDERS: PCP Internal Medicine; Visit Provider Internal Medicine | DX: J45.909 Unspecified asthma, uncomplicated (principal); G47.33 Obstructive sleep apnea (adult) (pediatric); E66.9 Obesity, unspecified | CPT/HCPCS: 99212 ==

== ENCOUNTER → 2024-01-30 14:12 | Outpatient (BNVA) | payer OTHER, SELFPAY | PROVIDERS: PCP Internal Medicine; Visit Provider Physician Assistant Medical | DX: S66.912A Strain of unspecified muscle, fascia and tendon at wrist and hand level, left hand, initial encounter (principal); X50.1XXA Overexertion from prolonged static or awkward postures, initial encounter; M65.4 Radial styloid tenosynovitis [de Quervain] | CPT/HCPCS: 29125; 99203 ==

== ENCOUNTER → 2024-02-04 12:01 | Outpatient (BNVA) | payer OTHER, SELFPAY | PROVIDERS: PCP Internal Medicine; Visit Provider Physician Assistant | DX: M65.4 Radial styloid tenosynovitis [de Quervain] (principal) | CPT/HCPCS: 99214 ==

== ENCOUNTER 2024-02-09 11:24 | Outpatient (AMB) | payer OTHER, SELFPAY ==
[2024-02-09 11:27] VITALS: BP 130/84; PULSE 82; O2SAT 97; BMI 35.9
--- NOTE | 2024-02-09 11:27 | A.OFFVIS_ITS ---
Vital Signs 02/09/24 11:27 Height 5 ft 8 in Weight 235 lb 14.314 oz BMI 35.9 BP 130/84 Blood Pressure Location Lt brachial Position Sitting Pulse 82 Pulse Source Pulse Oximeter Pulse Oximetry (%) 97 Oxygen Delivery Method Room Air Intake Visit Reasons: Obstructive sleep apnea Intake Note: pt is here for follow up and sometimes he does fall asleep without it, but he tries. 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 Allergies metronidazole [From FLAGYL] Allergy (Severe, Verified 02/09/24 12:05) SWELLING THROAT Medication List - Last Reconciled 02/09/24 by Barbi Watson MD albuterol sulfate 90 mcg/actuation 2 puffs PO Q6H PRN fluticasone propionate 110 mcg/actuation (Flovent HFA) 2 puffs PO BID fluticasone propionate 50 mcg/actuation (Flonase Allergy Relief) 1 spray intranasal BID methocarbamol 750 mg PO TID PRN montelukast (Singulair) 10 mg PO BEDTIME 90 days omeprazole 20 mg PO DAILY 90 days prednisone 10 mg PO DIRECTED 10 days Do you need a note to return to daycare/school/sports/work: No HPI HPI Obstructive sleep apnea: Details: THIS 43 YEARS OLD GENTLEMAN IS HERE FOR FOLLOW-UP AFTER 6 MONTHS. HE IS BEING TREATED FOR ALLERGIC RHINITIS, BRONCHIAL ASTHMA AND OBSTRUCTIVE SL EEP APNEA. HE REMAINS MODERATELY OVERWEIGHT AND HAS NOT BEEN ABLE TO LOSE WEIGHT. USES HIS CPAP REGULARLY EVERY NIGHT BUT ON SOME OF THE NIGHTS HE SLEEPS BEFORE HE CAN PUT ON THE CPAP MASK. HIS AVERAGE USAGE PER NIGHT HAS BEEN NO MORE THAN 3-4 HOURS PER NIGHT. SO HE DOES HAVE SOME DEGREE OF SLEEPINESS AND TIRED FEELING DURING THE DAYTIME. HE STILL SMOKING ABOUT HALF PACK OF CIGARETTES A DAY. COMPLAINS OF INTERMITTENT COUGH AND ALSO INTERMITTENT BOUTS OF WHEEZING. ON LICENSE OF [facility] Medical History (Updated 02/09/24 @ 12:11 by Barbi Watson MD) Smoker LLQ abdominal pain Puncture wound of skin from metal nail Injury of toe on left foot Umbilical hernia Left knee pain Headache Productive cough Right-sided chest wall pain Tooth pain Colitis Asthma Allergic rhinitis ELIZABETH (obstructive sleep apnea) Obesity (BMI 30-39.9) Hypersomnia Hypertension Fatty liver Vitamin D deficiency Gout Tobacco abuse GERD (gastroesophageal reflux disease) Hypercholesterolemia Obesity (BMI 30-39.9) Alcohol abuse Tear of biceps tendon Medial epicondylitis Surgical History History of left inguinal hernia repair (~2021) History of umbilical hernia repair (~2021) History of inguinal hernia repair Family History Father Hypertension Mother No problems noted. Brother No problems noted. Sister No problems noted. 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 - [employer]. Cognitive needs: No Hearing needs: No Vision needs: Yes (Glasses) Review of Systems Const All systems reviewed & are unremarkable except as noted in HPI and below Eyes Reports no additional complaints ENT Reports no additional complaints and Reports nasal congestion (Daily, and he feels that nose is blocked.) Card Denies chest pain, Denies irregular heart rhythm, Denies leg edema and Reports dyspnea on exertion (MILD) Resp Reports cough (Mild intermittent), Reports dyspnea on exertion (MILD) and Reports wheezing (Occasional) GI Reports no additional complaints Reports no additional complaints Musc Reports back pain and Reports arthralgias Skin/Breast Reports system reviewed and no additional complaints, except as documented Neuro Reports no additional complaints Psych Reports no additional complaints Aller/Immun Reports wheezing (Occasional) Physical Exam Vital Signs: Last Vital Signs Pulse 82 02/09/24 11:27 BP 130/84 02/09/24 11:27 Pulse Ox 97 02/09/24 11:27 Oxygen Delivery Method Room Air 02/09/24 11:27 BMI result Body Mass Index 35.9 Const General: healthy appearing, comfortable, no acute distress, alert and awake Orientation/consciousness: patient oriented x3 HEENT Head: Yes normal to inspection General nose exam: No nasal discharge present, Abnormal mucous membranes and turbinates present (Has chronic congestion of the nasal cavities with enlarged turbinates.) and Nasal polyp present (Moderate-sized nasal polyp in left nostril) Face and sinus: Yes sinuses nontender Mouth: oropharynx normal Throat: Yes posterior oropharynx normal Eyes General: appearance normal, both eyes and all related structures Neck Neck: Yes normal visual inspection, Yes no lymphadenopathy, Yes trachea midline and Yes no JVD Thyroid: Thyroid normal Chest Chest palpation & inspection: normal inspection of the chest, normal palpation of entire chest wall and no tenderness Resp Other: Percussion note resonant, good breath sounds on both sides, no wheezes rhonchi or crepitations are heard. Cardio Palpation: normal PMI Rate: regular rate Rhythm: regular rhythm Heart sounds: no gallops and no murmurs Peripheral pulses: Peripheral pulses 2+ throughout GI Palpation (GI): Soft to palpation, nontender, No hepatosplenomegaly present and no masses Auscultation: normal bowel sounds Back/Spine/Pelvis Thoracic/Lumbar Spine: thoracic and lumbar spine normal to inspection Skin General skin exam: no rashes or lesions noted Neuro General: patient oriented x3 and no focal motor deficits Cranial nerves: Yes CN's II-XII intact bilaterally Extrem General: Yes normal to inspection, Yes no clubbing, cyanosis or edema and Yes no calf tenderness Psych Appearance: grossly normal and well kempt Speech and movement: Normal speech and movement present Results Reviewed Results Reviewed: COMPLIANCE REPORT FOR THE LAST 30 NIGHTS IS REVIEWED AND SHOWS THAT HE USED 26/30 NIGHTS, 87%. AVERAGE USE IT PER NIGHT 3 HOURS 54 MINUTES WHICH IS SUBOPTIMAL, PRESSURE USED MOSTLY 10-11 CM. THERE IS MODERATE DEGREE OF LEAK, MAXIMUM 60 L/MINUTE. RESIDUAL AHI IS ONLY 0.4 Assessment & Plan Assessment & Plan (1) Allergic rhinitis: Comment: HAS CHRONIC RHINITIS, AND ENLARGED TURBINATES . IMPROVED WITH THE USE OF FOLONASE 2 SPRAYS IN EACH NOSTRIL DAILY. AND MONTELUKAST 10 MG DAILY . Code(s): J30.9 - Allergic rhinitis, unspecified Category: Medical Plan: CONTINUE TO USE MONTELUKAST 10 MG ONCE A DAY. FLONASE-52 SPRAY EACH NOSTRIL DAILY. MAY USE OTC ANTIHISTAMINICS SUCH LORATADINE 10 MG ONCE A DAY P.R.N. (2) Asthma: Comment: MILD TO MODERTAE , CONTROLLED WITH CURRENT REGIMEN. HAS HAD NO ACUTE FLARE UPS. Code(s): J45.909 - Unspecified asthma, uncomplicated Category: Medical Plan: CONTINUE FLOVENT 110 2 PUFFS B.I.D. ALBUTEROL HFA 2 PUFFS Q 6 HOURS P.R.N.. (3) ELIZABETH (obstructive sleep apnea): Comment: Known case of obstructive sleep apnea secondary to moderate obesity and nasal congestion. He does use CPAP at night but compliance has been slightly suboptimal. Code(s): G47.33 - Obstructive sleep apnea (adult) (pediatric) Category: Medical Plan: Discussed about the compliant issue and he promises that he would use more than 4 hours every night If he falls asleep during the daytime he can use the CPAP for short periods during daytime as well (4) Smoker: Comment: He is chronic smoker had cut down to a few cigarettes per day but now has increased back to 10 cigarettes a day. Code(s): F17.200 - Nicotine dependence, unspecified, uncomplicated Category: Social Hx Plan: Had a good talk with him and encouraged to stop smoking completely or at least cut down the number of cigarettes to no more than 5 per day for the time being. Coding Level of Care Code Est Pt Level 3 (28849) Diagnoses Allergic rhinitis J30.9 Asthma J45.909 ELIZABETH (obstructive sleep apnea) G47.33 Smoker F17.200
== END 2024-02-09 11:43 | disposition home or self-care (01) ==
LOC: HO.HPS 11:25
PROVIDERS: PCP Internal Medicine; Visit Provider Internal Medicine
DX: J30.9 Allergic rhinitis, unspecified (principal); J45.909 Unspecified asthma, uncomplicated; G47.33 Obstructive sleep apnea (adult) (pediatric); F17.200 Nicotine dependence, unspecified, uncomplicated
CPT/HCPCS: 99213

== ENCOUNTER → 2024-02-09 11:24 | Outpatient (BNVA) | payer OTHER, SELFPAY | PROVIDERS: PCP Internal Medicine; Visit Provider Internal Medicine | DX: J45.909 Unspecified asthma, uncomplicated (principal); G47.33 Obstructive sleep apnea (adult) (pediatric); F17.210 Nicotine dependence, cigarettes, uncomplicated; Z99.89 Dependence on other enabling machines and devices | CPT/HCPCS: 99212 ==

== ENCOUNTER 2024-04-13 10:03 | Outpatient (RCR) | payer OTHER, SELFPAY ==
--- NOTE | 2024-02-12 09:54 | MHC.OT.EP ---
[address] [phone] Occupational Therapy Plan of Care Patient Name: Da Harris Date of Evaluation: 02/12/24 Diagnosis: L wrist tenosynovitis Pain Location: Burning , tingling Pain Score: 9 Pain Scale Used: Numeric (0 - 10) Aggravating Factors: straightening using Alleviating Factors: heat, ice, tylenol Assessment: Pt is a 43 yr. old L hand dominant male who reports loosening a bolt while at work and felt a burning sensation down the radial side of his L wrist and arm (wrist to FA) . Pt reported going to work [employer] the following Friday and was assessed there by the PA. He reports having an x-ray which was negative for fractures and being placed in a wrist cock up orthoses which has been helping to alleviate pain due to immobilization. He was given prednisone for 10 days which he reports made a small impact to decrease the pain. He states his FA / hand feels tight and w/ movement it dinh and aches from wrist to FA. 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 He is eager and motivated to RTW. Pt as an appointment w/ [facility] on 02/19. He has been referred to skilled OT therapy to increase pain free ROM, strength, and functional use of his dominant hand to RTW safely and effectively. 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 Thank you once again for your referral.
--- NOTE | 2024-02-12 09:55 | MHC.OT.EP ---
[address] [phone] Occupational Therapy Plan of Care Patient Name: Da Harris Date of Evaluation: 02/12/24 Diagnosis: L wrist tenosynovitis Pain Location: Burning , tingling Pain Score: 9 Pain Scale Used: Numeric (0 - 10) Aggravating Factors: straightening using Alleviating Factors: heat, ice, tylenol Assessment: Pt is a 43 yr. old L hand dominant male who reports loosening a bolt while at work and felt a burning sensation down the radial side of his L wrist and arm (wrist to FA) . Pt reported going to work [employer] the following Friday and was assessed there by the PA. He reports having an x-ray which was negative for fractures and being placed in a wrist cock up orthoses which has been helping to alleviate pain due to immobilization. He was given prednisone for 10 days which he reports made a small impact to decrease the pain. He states his FA / hand feels tight and w/ movement it dinh and aches from wrist to FA. 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 He is eager and motivated to RTW. Pt as an appointment w/ [facility] on 02/19. He has been referred to skilled OT therapy to increase pain free ROM, strength, and functional use of his dominant hand to RTW safely and effectively. 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 Thank you once again for your referral.
== END 2024-05-11 08:20 | disposition home or self-care (01) ==
LOC: HO.OT 10:03
PROVIDERS: PCP Internal Medicine; Visit Provider Physician Assistant
DX: M77.8 Other enthesopathies, not elsewhere classified (principal)
CPT/HCPCS: 97110; 97140; 97166; 97535

== ENCOUNTER 2024-04-23 11:03 | Outpatient (AMB) | payer OTHER, SELFPAY ==
--- NOTE | 2024-04-23 11:09 | A.OFFPC_ITS ---
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 Accompanied by: Self / Same As Patient Allergies metronidazole [From FLAGYL] Allergy (Severe, Verified 04/23/24 11:10) SWELLING THROAT Medication List - Last Reconciled 04/23/24 by Ashwin Menendez MD albuterol sulfate 90 mcg/actuation 2 puffs PO Q6H PRN fluticasone propionate 110 mcg/actuation (Flovent HFA) 2 puffs PO BID fluticasone propionate 50 mcg/actuation (Flonase Allergy Relief) 1 spray intranasal BID montelukast (Singulair) 10 mg PO BEDTIME 90 days omeprazole 20 mg PO DAILY 90 days Tobacco use date assessed: 04/23/24 Dental Screening Dental Screen Date: 04/23/24 Did you have a dental visit in the last 12 months?: Yes Did you have a dental problem in the last 6 months where you did not have access to dental care?: No Was dental information given to patient?: Patient has dentist HPI Annual Exam HPI Details The patient is a 43-year-old male presenting with a history of elevated glucose levels noted in recent blood work, raising suspicion for diabetes mellitus. The patient's last checkup in April revealed elevated cholesterol levels, which prompted further assessment during this visit. The patient has a history of weight gain, noting an increase of 12 pounds since the last visit. He has been trying weight management interventions to address this. He also has an established diagnosis of fatty liver disease, correlating with elevated liver function tests. Additionally, the patient reported experiencing shortness of breath that led to the prescription of inhalers in the past, though he currently denies frequent use. The patient is aware of an allergic reaction to metronidazole, which is the only known medication allergy. A wrist injury sustained at work has led to a limited range of motion and pain, for which the patient has been out of work for three months and is awaiting MRI results. - Discussed previous cholesterol elevati on and the need for lipid panel monitoring. - Advised on glucose monitoring and pote ntial need for HbA1c testing for diabetes evaluation. - Encouraged smoking cessation to reduce cardiovascular and respiratory risks. - Recommended maintaining adequate hydra tion, with a minimum intake of four 16- ounce bottles of water per day. - Discussed fatty liver disease manageme nt and the importance of avoiding excessive alcohol intake. - Discussed the impact of weight gain on overall health and potential options for weight management, including lifestyle modifications and pharmacotherapy. - Reviewed use and benefits of CPAP in i mproving daytime alertness. - Protect liver health by moderating alc ohol consumption. - Employment: Currently not working due to wrist injury; was laid-off. - Smoking: Continues to smoke, though th e quantity is less than half a pack per day. - Alcohol: Consumes alcohol infrequently , typically a couple of beers oc casionally. - Lifestyle: Engaged in attempts at [facility] ht management. - Housing: No issues mentioned. - Respiratory: Denies shortness of breat h currently, occasional congestion reported. - Gastrointestinal: Denies nausea, vomit ing, heartburn, or dysphagia. Stool consistency fluctuates. - Genitourinary: Denies issues with urin ation. - Neurological: Denies dizziness, fainti ng, or headaches. - Musculoskeletal: Reports wrist pain wi th limited ability to lift. - Skin: No new rashes or skin changes re ported. - Psychiatric: No symptoms of depression or anxiety were reported. - Labs: Glucose levels elevated; creatin ine at 1.4; White blood cell count at 4, slightly lower than average; neutrophils marginally low. - Cholesterol: Previously elevated, stat us to be re-checked. [facility] Medical History (Updated 02/09/24 @ 12:11 by Barbi Watson MD) Smoker LLQ abdominal pain Puncture wound of skin from metal nail Injury of toe on left foot Umbilical hernia Left knee pain Headache Productive cough Right-sided chest wall pain Tooth pain Colitis Asthma Allergic rhinitis ELIZABETH (obstructive sleep apnea) Obesity (BMI 30-39.9) Hypersomnia Hypertension Fatty liver Vitamin D deficiency Gout Tobacco abuse GERD (gastroesophageal reflux disease) Hypercholesterolemia Obesity (BMI 30-39.9) Alcohol abuse Tear of biceps tendon Medial epicondylitis Surgical History History of left inguinal hernia repair (~2021) History of umbilical hernia repair (~2021) History of inguinal hernia repair Family History (Reviewed 04/23/24 @ 11:10 by MONIE Hilario Father Hypertension Mother No problems noted. Brother No problems noted. Sister No problems noted. Paternal Uncle Colon cancer Paternal Aunt Colon cancer Social History (Updated 04/23/24 @ 11:49 by Ashwin Menendez MD) Housing: House Are you a primary health care sanitary technician to a significant other at home: No Do you presently have visiting nurse or other home services: No Alcohol intake: current Alcohol intake frequency: holidays/special occasions only Comment: once a week 2 drinks Patient Tobacco Use Status: Current everyday Tobacco user Tobacco use type: Cigarette Cigarettes Per Day: 10 Years Smoked: [facility] 04/2024 5-6 cigarettes a day e-Cigarette/Vaping Use: Never Used Second Hand Smoke Exposure: No service: No Current occupational status: employed 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 - [employer]. Cognitive needs: No Hearing needs: No Vision needs: Yes (Glasses) Questionnaire PHQ-9 Over the last 2 weeks, how often have you been bothered by any of the following problems? 1. Little interest or pleasure in doing things: not at all 2. Feeling down, depressed, or hopeless: not at all 3. Trouble falling or staying asleep, or sleeping too much: several days 4. Feeling tired or having little energy: several days 5. Poor appetite or overeating: several days 6. Feeling bad about yourself - or that you are a failure or have let yourself or your family down: not at all 7. Trouble concentrating on things, such as reading the newspaper or watching television: not at all 8. Moving or speaking so slowly that other people could have noticed. Or the opposite - being so fidgety or restless that you have been moving around a lot more than usual: not at all 9. Thoughts that you would be better off or of hurting yourself in some way: not at all Total score: 3 Source: Developed by Drs. Anthony Alfredo, Melinda Mccracken, Master Benito and colleagues, with an educational vanesa from [employer]. Thrive Questionnaire Date Thrive assessed: 04/23/24 I am a: Patient What is your living situation today?: I have a steady place to live Within the past 12 months, did the food you bought not last and you didn't have the money to get more?: I choose not to answer this question Within the past 12 months, did you worry whether your food would run out before you got money to buy more?: I choose not to answer this question Do you have trouble paying for medicines?: No Do you have trouble getting transportation to medical appointments?: No Do you have trouble paying your heating and electricity bill?: I choose not to answer this question Do you have trouble taking care of your child, family member or friend?: I choose not to answer this question Do you have trouble with day-to-day activities such as bathing, preparing meals, shopping, managing finances, etc.?: I choose not to answer this question Are you currently unemployed and looking for a job?: No Are you interested in more education?: No Please select the resources that you would like help with: None Currently or been in a relationship where the following occur: I choose not to answer THRIVE Score: 0 AUDIT C Alcohol Use Questionnaire (AUDIT-C) 1. How often do you have a drink containing alcohol?: Monthly or less 2. How many drinks containing alcohol do you have on a typical day when you are drinking?: 1 or 2 3. How often do you have six or more drinks on one occasion?: Never Total Score: 1 MARLEN-7 AMB Questionnaire MARLEN-7 Date MARLEN - 7 assessed: 04/23/24 Feeling nervous, anxious, or on edge: 0 = Not at all Not being able to stop or control worryin = Not at all Worrying too much about different things: 0 = Not at all Trouble relaxin = Not at all Being so restless that it is hard to sit still: 0 = Not at all Becoming easily annoyed or irritable: 1 = Several days Feeling afraid as if something awful might happen: 0 = Not at all Total MARLEN-7 score (0-4 normal; 5-9 mild; 10-14 moderate; 15-21 severe): 1 Source: Developed by Drs. Anthony Alfredo, Melinda Mccracken, Master Benito and colleagues, with an educational vanesa from [employer]. Review of Systems Const Denies poor appetite and Denies weakness Eyes Denies no additional complaints ENT Reports Normal hearing present, Denies dizziness, Denies nasal congestion, Denies tinnitus and Denies sore throat Card Denies chest pain, Denies syncope, Denies rapid heart rate and Denies dyspnea Resp Denies cough and Denies dyspnea GI Denies change in stool character, Reports constipation, Denies diarrhea, Denies nausea and Denies vomiting Denies dysuria and Denies urinary frequency Neuro Reports Normal hearing present, Denies confusion, Denies dizziness, Denies syncope and Denies weakness Psych Denies confusion Physical exam (Primary Care) Vital Signs: Last Vital Signs Pulse 86 04/23/24 11:10 BP 120/72 04/23/24 11:10 Pulse Ox 96 04/23/24 11:10 Oxygen Delivery Method Room Air 04/23/24 11:10 BMI result Body Mass Index 37.6 Tobacco/Smoking Status: Tobacco use Status Tobacco use date assessed 04/23/24 04/23/24 11:14 Patient Tobacco Use Status Current everyday Tobacco 04/23/24 11:49 Tobacco use type Cigarette 04/23/24 11:49 e-Cigarette/Vaping Use Never Used 04/23/24 11:49 PHQ-9: PHQ-9 Score PHQ-9: Total score 3 04/23/24 11:44 Thrive Assessment: Date of Thrive Assessment Date Thrive assessed 04/23/24 04/23/24 11:14 Currently or been in a relationship where the following occur: I choose not to answer Const General: alert and awake; No confusion Orientation/consciousness: No confusion HENMT Head: Yes normocephalic Ears: external ears normal and TM's normal bilaterally Face and sinus: Yes normal facial exam Mouth: moist mucous membranes Throat: Yes tonsils normal Eyes Conjunctivae: conjunctivae normal Pupils: Equal, round and reactive pupils present and Pupil accommodation reflex normal Direct Ophthalmoscopy: normal light reflex Neck Neck: No lymphadenopathy Thyroid: Thyroid normal Chest Chest palpation & inspection: normal inspection of the chest Resp Effort & Inspection: normal respiratory effort and no audible wheezes Auscultation: clear to auscultation bilaterally, no crackles, no wheezes and lung sounds not diminished Cardio Rate: regular rate Rhythm: regular rhythm Peripheral pulses: radial pulses present and dorsalis pedis present GI Palpation (GI): no masses Auscultation: normal bowel sounds and normoactive bowel sounds Rectal Exam - Male: Yes deferred Skin General skin exam: no rashes or lesions noted Rashes: no rashes Neuro General: deep tendon reflexes 2+ bilaterally and No confusion Cranial nerves: Yes Equal, round and reactive pupils present, Yes Midline tongue present, Yes Normal hearing present and Yes Ability to bilaterally elevate shoulders present Cognition (Neuro): normal cognition Gait exam (Neuro): Normal gait present Motor exam (neuro): 5/5 motor strength present throughout Deep tendon reflexes (DTR's): Right brachioradialis reflex intensity grade: 2+, Left brachioradialis reflex intensity grade: 2+, Right patellar reflex intensity grade: 2+ and Left patellar reflex intensity grade: 2+ Extrem General: No edema Coding Level of Care Code Est Pt Prev Care 40-64y(47548) Diagnoses Annual physical exam Z00.00 ELIZABETH (obstructive sleep apnea) G47.33 Obesity (BMI 30-39.9) E66.9 Impaired fasting blood sugar R73.01 Essential hypertension I10 Hypertension type: essential hypertension Tobacco abuse Z72.0 Gastroesophageal reflux disease without esophagitis K21.9 Esophagitis presence: without esophagitis Hypercholesterolemia E78.00 Assessment & Plan Assessment & Plan (1) Annual physical exam: Code(s): Z00.00 - Encounter for general adult medical examination without abnormal findings Category: Medical (2) ELIZABETH (obstructive sleep apnea): Comment: Known case of obstructive sleep apnea secondary to moderate obesity and nasal congestion. He does use CPAP at night but compliance has been slightly suboptimal. Code(s): G47.33 - Obstructive sleep apnea (adult) (pediatric) Category: Medical (3) Obesity (BMI 30-39.9): Comment: BMI= 36.5 WEIGHT SEEMS TO BE AT A STANDSTILL. Code(s): E66.9 - Obesity, unspecified Category: Medical (4) Impaired fasting blood sugar: Code(s): R73.01 - Impaired fasting glucose Category: Medical (5) Hypertension: Code(s): I10 - Essential (primary) hypertension Category: Medical Qualifiers: Hypertension type: essential hypertension Qualified Code(s): I10 - Essential (primary) hypertension (6) Tobacco abuse: Code(s): Z72.0 - Tobacco use Category: Medical (7) GERD (gastroesophageal reflux disease): Code(s): K21.9 - Gastro-esophageal reflux disease without esophagitis Category: Medical Qualifiers: Esophagitis presence: without esophagitis Qualified Code(s): K21.9 - Gastro-esophageal reflux disease without esophagitis (8) Hypercholesterolemia: Code(s): E78.00 - Pure hypercholesterolemia, unspecified Category: Medical Plan - Monitor glucose levels and obtain Hemoglobin A1c to assess for diabetes mellitus. - Evaluate cholesterol status with repeat lipid panel; consider starting or adjusting lipid-lowering therapy based on results. - Reinforce lifestyle modifications including dietary changes and exercise for weight management and liver health. - Continue CPAP therapy for sleep-related breathing disorders. - Schedule MRI for wrist and consult with orthopedics if indicated for further management. - Recommend smoking cessation interventions to enhance respiratory health and reduce overall health risks. - Encourage moderate alcohol intake to mitigate the progression of fatty liver disease. - Close follow-up on liver function tests and lipid panel before next visit. I discussed with the patient the importance of controlling blood sugar levels and the implications of potential diabetes. I recommended that we perform an HbA1c test for further evaluation. The patient is aware of his elevated cholesterol history and the implications it can have on his cardiovascular health. We reviewed his current lifestyle habits, emphasizing smoking cessation and moderated alcohol intake to protect against further liver damage considering his fatty liver disease diagnosis. I explained that his wrist pain and limited movement are of concern, and thus we have scheduled an MRI to further investigate potential underlying issues. If conservative management proves ineffective, surgical consultation may be necessary. I encouraged the patient to maintain adequate hydration, a balanced diet, and regular physical activity for overall health improvement. - Follow the plan for re-checking blood glucose and cholesterol levels. - Reduce smoking, aiming for cessation. - Limit alcohol intake to protect liver health. - Maintain consistent use of CPAP for sleep apnea. - Increase daily water intake to four 16-ounce bottles. - Continue efforts at weight management with dietary improvements and increased physical activity. - Follow up for wrist MRI and comply with orthopedic recommendations once available. - Schedule follow-up visit to discuss test results and adjust the treatment plan accordingly. Orders: Orders Hemoglobin A1c Today R73.01 - Impaired fasting glucose Comprehensive Met. Panel Today R73.01 - Impaired fasting glucose Thyroid Stimulating Hormone Today R73.01 - Impaired fasting glucose Free T4 (Free Thyroxine) Today R73.01 - Impaired fasting glucose Complete Blood Count Auto Diff Today R73.01 - Impaired fasting glucose Lipid Panel Today E78.00 - Pure hypercholesterolemia, unspecified, R73.01 - Impaired fasting glucose Vitamin B12 and Folate Today R73.01 - Impaired fasting glucose Medications: New tirzepatide (weight loss) (Zepbound) for 4 weeks 2.5 mg (0.5 mL) subcut QWEEK 2 mL 2RF E66.9 - Obesity, unspecified
[2024-04-23 11:10] VITALS: BP 120/72; PULSE 86; O2SAT 96; BMI 37.6
== END 2024-04-23 12:07 | disposition home or self-care (01) ==
PROVIDERS: PCP Internal Medicine; Visit Provider Internal Medicine
DX: Z00.00 Encounter for general adult medical examination without abnormal findings (principal); G47.33 Obstructive sleep apnea (adult) (pediatric); E66.9 Obesity, unspecified; Z68.37 Body mass index [BMI] 37.0-37.9, adult; R73.01 Impaired fasting glucose; I10 Essential (primary) hypertension; Z72.0 Tobacco use; K21.9 Gastro-esophageal reflux disease without esophagitis; E78.00 Pure hypercholesterolemia, unspecified

== ENCOUNTER → 2024-04-23 11:03 | Outpatient (BNVA) | payer OTHER, SELFPAY | PROVIDERS: PCP Internal Medicine; Visit Provider Internal Medicine | DX: Z00.00 Encounter for general adult medical examination without abnormal findings (principal); G47.33 Obstructive sleep apnea (adult) (pediatric); E66.9 Obesity, unspecified; R73.01 Impaired fasting glucose; I10 Essential (primary) hypertension; K21.9 Gastro-esophageal reflux disease without esophagitis; F17.210 Nicotine dependence, cigarettes, uncomplicated; Z68.37 Body mass index [BMI] 37.0-37.9, adult | CPT/HCPCS: 99396 ==

== ENCOUNTER 2024-06-07 10:46 | Outpatient (AMB) | payer OTHER, SELFPAY ==
--- NOTE | 2024-06-07 11:05 | MHC.OFFVIS ---
Vital Signs 06/07/24 11:06 Height 5 ft 8 in Weight 251 lb 5.231 oz BMI 38.2 BP 130/90 H Blood Pressure Location Lt brachial Position Sitting Pulse 81 Pulse Source Pulse Oximeter Pulse Oximetry (%) 96 Oxygen Delivery Method Room Air Intake Visit Reasons: Obstructive sleep apnea Intake Note: pt is here for follow up doing alright m he has a head cold since last week, nose is congested. Ticket Speculator Required: No Allergies metronidazole [From FLAGYL] Allergy (Severe, Verified 06/07/24 11:28) SWELLING THROAT Medication List - Last Reconciled 06/07/24 by Barbi Watson MD albuterol sulfate 90 mcg/actuation 2 puffs PO Q6H PRN fluticasone propionate 110 mcg/actuation (Flovent HFA) 2 puffs PO BID fluticasone propionate 50 mcg/actuation (Flonase Allergy Relief) 1 spray intranasal BID montelukast (Singulair) 10 mg PO BEDTIME 90 days omeprazole 20 mg PO DAILY 90 days tirzepatide (weight loss) (Zepbound) 2.5 mg (0.5 mL) subcut QWEEK Do you need a note to return to daycare/school/sports/work: No HPI HPI Obstructive sleep apnea: Details: THIS 43 YEARS OLD GENTLEMAN WITH GROSS OBESITY AND OBSTRUCTIVE SLEEP APNEA, IS HERE FOR FOLLOW-UP AFTER 6 MONTHS. HIS COMPLIANCE HAS IMPROVED TO SOME EXTENT BUT STILL NOT USING 100% OF THE NIGHT. DUE TO NASAL CONGESTION HIS MASK SLIPS OFF DURING THE NIGHT AND HE DOES HAVE SOME AIR LEAK. HIS MAIN ISSUE IS ONGOING NASAL CONGESTION WITH SNEEZING AND RUNNY NOSE, AND HE IS TRYING TO KEEP. IT CONTROLLED WITH MEDS ASTHMA IS MILD AND WELL CONTROLLED WITH USE OF FLOVENT-110 WEIGHT SOTO HE HAS NOT MADE ANY PROGRESS, BUT RECENTLY HAS BEEN STARTED ON ZEPBOUND . HE CONTINUES TO HAVE FREQUENT BOUTS OF NASAL CONGESTION, DUE TO ALLERGIC RHINITIS. [facility] Medical History Smoker LLQ abdominal pain Puncture wound of skin from metal nail Injury of toe on left foot Umbilical hernia Left knee pain Headache Productive cough Right-sided chest wall pain Tooth pain Colitis Asthma Allergic rhinitis ELIZABETH (obstructive sleep apnea) Obesity (BMI 30-39.9) Hypersomnia Hypertension Fatty liver Vitamin D deficiency Gout Tobacco abuse GERD (gastroesophageal reflux disease) Hypercholesterolemia Obesity (BMI 30-39.9) Alcohol abuse Tear of biceps tendon Medial epicondylitis Surgical History History of left inguinal hernia repair (~2021) History of umbilical hernia repair (~2021) History of inguinal hernia repair Family History Father Hypertension Mother No problems noted. Brother No problems noted. Sister No problems noted. Paternal Uncle Colon cancer Paternal Aunt Colon cancer Social History Housing: House Are you a primary critical care technician to a significant other at home: No Do you presently have visiting nurse or other home services: No Alcohol intake: current Alcohol intake frequency: holidays/special occasions only Comment: once a week 2 drinks Patient Tobacco Use Status: Current everyday Tobacco user Tobacco use type: Cigarette Cigarettes Per Day: 10 Years Smoked: [facility] 04/2024 5-6 cigarettes a day e-Cigarette/Vaping Use: Never Used Second Hand Smoke Exposure: No service: No Current occupational status: employed 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 - [employer]. Cognitive needs: No Hearing needs: No Vision needs: Yes (Glasses) Review of Systems Const All systems reviewed & are unremarkable except as noted in HPI and below Eyes Reports no additional complaints ENT Reports no additional complaints and Reports nasal congestion (Daily, and he feels that nose is blocked.) Card Denies chest pain, Denies irregular heart rhythm, Denies leg edema and Reports dyspnea on exertion (MILD) Resp Reports cough (Mild intermittent), Reports dyspnea on exertion (MILD) and Reports wheezing (Occasional) GI Reports no additional complaints Reports no additional complaints Musc Reports back pain and Reports arthralgias Skin/Breast Reports system reviewed and no additional complaints, except as documented Neuro Reports no additional complaints Psych Reports no additional complaints Aller/Immun Reports wheezing (Occasional) Physical Exam Vital Signs: Last Vital Signs Pulse 81 06/07/24 11:06 BP 130/90 H 06/07/24 11:06 Pulse Ox 96 06/07/24 11:06 Oxygen Delivery Method Room Air 06/07/24 11:06 BMI result Body Mass Index 38.2 Const General: healthy appearing, comfortable, no acute distress, alert and awake Orientation/consciousness: patient oriented x3 HEENT Head: Yes normal to inspection General nose exam: No nasal discharge present, Abnormal mucous membranes and turbinates present (Has chronic congestion of the nasal cavities with enlarged turbinates.) and Nasal polyp present (Moderate-sized nasal polyp in left nostril) Face and sinus: Yes sinuses nontender Mouth: oropharynx normal Throat: Yes posterior oropharynx normal Eyes General: appearance normal, both eyes and all related structures Neck Neck: Yes normal visual inspection, Yes no lymphadenopathy, Yes trachea midline and Yes no JVD Thyroid: Thyroid normal Chest Chest palpation & inspection: normal inspection of the chest, normal palpation of entire chest wall and no tenderness Resp Other: Percussion note resonant, good breath sounds on both sides, no wheezes rhonchi or crepitations are heard. Cardio Palpation: normal PMI Rate: regular rate Rhythm: regular rhythm Heart sounds: no gallops and no murmurs Peripheral pulses: Peripheral pulses 2+ throughout GI Palpation (GI): Soft to palpation, nontender, No hepatosplenomegaly present and no masses Auscultation: normal bowel sounds Back/Spine/Pelvis Thoracic/Lumbar Spine: thoracic and lumbar spine normal to inspection Skin General skin exam: no rashes or lesions noted Neuro General: patient oriented x3 and no focal motor deficits Cranial nerves: Yes CN's II-XII intact bilaterally Extrem General: Yes normal to inspection, Yes no clubbing, cyanosis or edema and Yes no calf tenderness Psych Appearance: grossly normal and well kempt Speech and movement: Normal speech and movement present Results Reviewed Results Reviewed: COMPLIANCE REPORT IS REVIEWED AND HE HAS USED 26/30 NIGHTS, 87%, . THIS IS IMPROVED FROM BEFORE AVERAGE USE IT PER NIGHT 4 HOURS 45 MINUTES. .HE DOES HAVE SOME AIR LEAK RESIDUAL AHI ONLY 0.5 Assessment & Plan Assessment & Plan (1) Obesity (BMI 30-39.9): Comment: BMI= 38.2 .WEIGHT SEEMS TO BE AT A STANDSTILL. Code(s): E66.9 - Obesity, unspecified Category: Medical Plan: TALKED TO HIM ABOUT WEIGHT REDUCTION, HE IS NOT ABLE TO DO MUCH EXERCISE. HE TRIES TO KEEP THE CALORIES INTAKE IN CONTROLLED. HAS BEEN STARTED ON ZEPBOUND THERAPY HOPEFULLY THIS WOULD HELP HIM TO LOSE WEIGHT. (2) ELIZABETH (obstructive sleep apnea): Comment: Known case of obstructive sleep apnea secondary to gross obesity and nasal congestion. He does use CPAP at night, and compliance has somewhat improved from before. Denies any issues with the mask or CPAP device Code(s): G47.33 - Obstructive sleep apnea (adult) (pediatric) Category: Medical Plan: Encouraged to keep using CPAP every night and try to use more than 5 hours per night (3) Allergic rhinitis: Comment: HAS CHRONIC RHINITIS, AND ENLARGED TURBINATES . IMPROVED WITH THE USE OF FOLONASE 2 SPRAYS IN EACH NOSTRIL DAILY. AND MONTELUKAST 10 MG DAILY . Code(s): J30.9 - Allergic rhinitis, unspecified Category: Medical Plan: Continue to take montelukast 10 mg daily. Use Zyrtec 10 mg once. A day p.r.n. Flonase 2 spray in each nostril daily (4) Asthma: Comment: MILD TO MODERTAE , CONTROLLED WITH CURRENT REGIMEN. HAS HAD NO ACUTE FLARE UPS. Code(s): J45.909 - Unspecified asthma, uncomplicated Category: Medical Plan: Continue to use Flovent-1102 puffs b.i.d.. Albuterol HFA 2 puffs Q 6 hours p.r.n.. Coding Level of Care Code Est Pt Level 3 (39560) Diagnoses Obesity (BMI 30-39.9) E66.9 ELIZABETH (obstructive sleep apnea) G47.33 Allergic rhinitis J30.9 Asthma J45.909
[2024-06-07 11:06] VITALS: BP 130/90; PULSE 81; O2SAT 96; BMI 38.2
--- OUTSIDE RECORDS SUMMARY | 2024-06-07 12:12 | XMS_ITS | Clinical Summary ---
Author Organization [employer] Address [address] [place] [address] Care Team Providers Care Geology Faculty Member Name Role Phone Unavailable Primary Care Provider Unavailabl e Immunizations Name Administration Dates Next Due Influenza, trivalent (IIV3), split virus (single-dose) PF 01/24/2020 Social History Tobacco Use Types Packs/Day Years Used Date Smoking Tobacco: Never Assessed Sex and Gender Information Value Date Recorded Sex Assigned at Not on file Legal Sex Male 3:51 PM MST Gender Identity Not on file Sexual Orientation Not on file Plan of Treatment Health Maintenance Due Date Last Done Comments Hepatitis C Screening 1981 PHQ-9 Depression Screen 1993 Annual Preventive Exam 08/15/1999 Complete Annual HRA 08/15/1999 MARLEN-7 Anxiety Screen 08/15/1999 DTaP,Tdap,and Td Vaccines (1 - Tdap) 2000 COVID-19 Vaccine ( - 2023-25 season) 2023 Influenza Vaccine (#1) 2023 01/24/2020 RSV Vaccine (SCDM) (1 - 1-dose 75+ series) 2056 Insurance [employer]
== END 2024-06-07 11:29 | disposition home or self-care (01) ==
PROVIDERS: PCP Internal Medicine; Visit Provider Internal Medicine
DX: E66.9 Obesity, unspecified (principal); G47.33 Obstructive sleep apnea (adult) (pediatric); J30.9 Allergic rhinitis, unspecified; J45.909 Unspecified asthma, uncomplicated
CPT/HCPCS: 99213

== ENCOUNTER → 2024-06-07 10:46 | Outpatient (BNVA) | payer OTHER, SELFPAY | PROVIDERS: PCP Internal Medicine; Visit Provider Internal Medicine | DX: G47.33 Obstructive sleep apnea (adult) (pediatric) (principal); E66.9 Obesity, unspecified; J45.909 Unspecified asthma, uncomplicated; Z68.38 Body mass index [BMI] 38.0-38.9, adult | CPT/HCPCS: 99212 ==

== ENCOUNTER 2024-06-30 12:37 | Outpatient (AMB) | payer OTHER, SELFPAY ==
--- NOTE | 2024-06-30 12:41 | MHC.OFFVIS ---
Vital Signs 06/30/24 12:45 Height 5 ft 8 in Weight 250 lb BMI 38.0 BP 160/77 H Blood Pressure Location Lt brachial Position Sitting Pulse 60 Intake Visit Reasons: Hemorrhage of anus and rectum/Eliana maryann 03/2022. Intake Note: Patient complex follow up for hemorrhage of anus and rectum. Patient cc: abdominal pain, diarrhea, denies any other GI issues. Tapper Operator Required: No Accompanied by: Self / Same As Patient Allergies metronidazole [From FLAGYL] Allergy (Severe, Verified 06/30/24 12:39) SWELLING THROAT HPI Comments Details: 43 y.o M with PMH of obesity, ELIZABETH, gerd, fatty liver, tobacco use, prev [facility] pt here for follow up. Reports almost 4 months ago started having loose stools 2-3 times a day without blood. No abd pain with the bowels. No nausea or vomiting. No new meds. No unintentional weight loss. Of note - pt previously has been worked up for abnl appearance of pancreas: PANCREAS: The head and uncinate process of the pancreas are prominent measuring up to 4.3 cm in AP dimension, upper normal 3 cm. The pancreas is normal in signal and demonstrates normal enhancement. No focal lesion. The main pancreatic duct does not appear dilated. Fam hx of CRC - second degree relatives. Pat aunt had CRC at age 70s, pat uncle age CRC in 50s. Smokes 0.5 PPD. Drinks 3-6 drinks/weekend. REPLACED BY [facility] Medical History (Updated 06/30/24 @ 13:02 by Jaimie Stuart MD) Smoker LLQ abdominal pain Puncture wound of skin from metal nail Injury of toe on left foot Umbilical hernia Left knee pain Headache Productive cough Right-sided chest wall pain Tooth pain Colitis Asthma Allergic rhinitis ELIZABETH (obstructive sleep apnea) Obesity (BMI 30-39.9) Hypersomnia Hypertension Fatty liver Vitamin D deficiency Gout Tobacco abuse GERD (gastroesophageal reflux disease) Hypercholesterolemia Obesity (BMI 30-39.9) Alcohol abuse Tear of biceps tendon Medial epicondylitis Surgical History (Updated 06/30/24 @ 12:45 by Natasha Koenig) History of surgery on arm History of left inguinal hernia repair (~2021) History of umbilical hernia repair (~2021) History of inguinal hernia repair Family History Father Hypertension Mother No problems noted. Brother No problems noted. Sister No problems noted. Paternal Uncle Colon cancer Paternal Aunt Colon cancer Social History Housing: House Are you a primary childcare worker to a significant other at home: No Do you presently have visiting nurse or other home services: No Alcohol intake: current Alcohol intake frequency: holidays/special occasions only Comment: once a week 2 drinks Patient Tobacco Use Status: Current everyday Tobacco user Tobacco use type: Cigarette Cigarettes Per Day: 10 Years Smoked: [facility] 04/2024 5-6 cigarettes a day e-Cigarette/Vaping Use: Never Used Second Hand Smoke Exposure: No service: No Current occupational status: employed 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 - [employer]. Cognitive needs: No Hearing needs: No Vision needs: Yes (Glasses) Review of Systems Const All systems reviewed & are unremarkable except as noted in HPI and below Physical Exam Vital Signs: Last Vital Signs Pulse 60 06/30/24 12:45 BP 160/77 H 06/30/24 12:45 BMI result Body Mass Index 38.0 No apparent distress, with obesity Nonicteric Abdomen soft, nondistended Alert and oriented x3, normal gait Assessment & Plan Assessment & Plan (1) Chronic diarrhea: Code(s): K52.9 - Noninfective gastroenteritis and colitis, unspecified Category: Medical (2) Elevated LFTs: Code(s): R79.89 - Other specified abnormal findings of blood chemistry Category: Medical (3) 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 DDx include malabsorption such as celiac/csid/SIBO, microscopic colitis, EPI. IBD and IBS also considered though typically assoc with abd pain. Plan: - Labs ordered as below - Hold off anti-diarrheals until results available - can try imodium if fecal calpro normal - MRI abd panc protocol also ordered due to prev hx of prominent panc head - EGD and colo to be booked - PEG prep reviewed and handout provided Follow up after scopes Orders: Orders Transglutaminase IgA Today K52.9 - Noninfective gastroenteritis and colitis, unspecified C Reactive Protein Today K52.9 - Noninfective gastroenteritis and colitis, unspecified Complete Blood Count no Diff Today K52.9 - Noninfective gastroenteritis and colitis, unspecified MR abdomen wo/w con Today K52.9 - Noninfective gastroenteritis and colitis, unspecified, 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 Fecal Fat Qualitative Today K52.9 - Noninfective gastroenteritis and colitis, unspecified, 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 Liver Panel Today R79.89 - Other specified abnormal findings of blood chemistry Calprotectin, Fecal Today K52.9 - Noninfective gastroenteritis and colitis, unspecified TSH reflex Free T4 Today K52.9 - Noninfective gastroenteritis and colitis, unspecified Immunoglobulin A Today K52.9 - Noninfective gastroenteritis and colitis, unspecified Pancreatic Elastase-1 Today K52.9 - Noninfective gastroenteritis and colitis, unspecified, 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
[2024-06-30 12:45] VITALS: BP 160/77; PULSE 60; BMI 38.0
--- OUTSIDE RECORDS SUMMARY | 2024-06-30 15:01 | XMS_ITS | Clinical Summary ---
Author Organization [employer] Address [address] [place] [address] Care Team Providers Care Raisin Washer Name Role Phone Unavailable Primary Care Provider [...]
== END 2024-06-30 13:28 | disposition home or self-care (01) ==
LOC: HO.HGI 12:37
PROVIDERS: PCP Internal Medicine; Visit Provider Internal Medicine
DX: K52.9 Noninfective gastroenteritis and colitis, unspecified (principal); R79.89 Other specified abnormal findings of blood chemistry; Q45.3 Other congenital malformations of pancreas and pancreatic duct
CPT/HCPCS: 99204

== ENCOUNTER → 2024-06-30 12:37 | Outpatient (BNVA) | payer OTHER, SELFPAY | PROVIDERS: PCP Internal Medicine; Visit Provider Internal Medicine | DX: K52.9 Noninfective gastroenteritis and colitis, unspecified (principal); Q45.3 Other congenital malformations of pancreas and pancreatic duct; R79.89 Other specified abnormal findings of blood chemistry | CPT/HCPCS: 99202 ==

== ENCOUNTER 2024-07-09 12:20 | Outpatient (REF) | payer OTHER, SELFPAY ==
--- NOTE | ~2024-07-09 | MR_ITS ---
EXAMINATION: MRI Abdomen without and with contrast HISTORY: K52.9 - Noninfective gastroenteritis and colitis, unspecified COMPARISON: Comparison is made with the prior examination dated 03/03/2022. TECHNIQUE: Axial in and out of phase T1-weighted gradient echo, axial diffusion weighted, and axial and coronal HASTE T2 with fat saturation images were obtained through the abdomen. 3D MRCP Reconstructed and thin and thick slab images of the biliary tree were obtained. Subsequently, fat suppressed axial and coronal T1-weighted images were obtained after the intravenous administration of mL Gadavist. FINDINGS: The liver is enlarged. There is diffuse loss of signal intensity within the liver on opposed phase images, compatible with steatosis. No enhancing liver mass is identified. There is no intra or extrahepatic biliary ductal dilatation. The hepatic and portal veins are patent. The gallbladder is unremarkable. The spleen is unremarkable. The pancreas demonstrates normal signal intensity. There is no pancreatic mass or ductal dilatation. The morphology of the pancreas is unchanged. The adrenals and kidneys are unremarkable. No retroperitoneal lymphadenopathy or ascites is identified in the upper abdomen. The visualized bones demonstrate normal marrow signal intensity. MR/MR abdomen wo/w con IMPRESSION: 1. Hepatomegaly and hepatic steatosis. 2. The pancreas is unremarkable in appearance. Electronically signed by: Anthony Pérez MD 07/09/2024 02:29 PM EDT
[2024-07-09 12:50] LABS: MANUAL DIFF FLAG NO
[2024-07-09 13:01] LABS: Basophils Absolute Auto 0.2 X10*3/uL (0.0-0.2); Eosinophils Absolute Auto 0.2 X10*3/uL (0.0-0.4); Hematocrit 44.7 % (42.0-52.0); Hemoglobin 15.3 g/dl (14.0-18.0); Imm Gran Pct Auto 2.7 % (0.0-0.4); Lymphocytes Absolute Auto 2.7 X10*3/uL (1.2-4.9); Mean Corpuscular HGB Conc 34.2 g/dl (31.0-36.0); Mean Corpuscular Hemoglobin 30.8 pg (27.0-33.0); Mean Corpuscular Volume 89.9 fL (80.0-98.0); Mean Platelet Volume 8.7 fL (9.4-12.4); Neutrophils Absolute Auto 3.1 x10*3/uL (2.0-8.3); Neutrophils Percent Auto 42.3 % (45-73); Platelet Count 293 X10*3/uL (160-400); Red Blood Count 4.97 X10*6/uL (4.60-5.80); Red Cell Distribution Width 13.8 % (11.0-16.0); White Blood Count 7.4 X10*3/uL (4.8-10.8)
[2024-07-09 13:13] LABS: Estimated Average Glucose 123 mg/dL; Hemoglobin A1C 166.0649 umol/L; Hemoglobin A1c % 5.9 % (<6.0)
[2024-07-09 13:33] LABS: Alanine Aminotransferase 67 U/L (0-40); Albumin Level 4.3 g/dL (3.5-5.0); Alkaline Phosphatase 61 U/L (39-117); Anion Gap 12 (12-20); Aspartate Amino Transferase 34 U/L (5-37); Bilirubin Direct < 0.2 mg/dL (0.0-0.5); Bilirubin Total 0.2 mg/dL (0.0-1.0); Blood Urea Nitrogen 16 mg/dL (9-16); C Reactive Protein 0.36 mg/dL (< or = 0.50); Calcium 9.1 mg/dL (8.4-10.2); Carbon Dioxide 24 mmol/L (22-29); Chloride 112 mmol/L (96-108); Cholesterol 210 mg/dL (<200); Estimated Glomerular Filt Rate > 60; Glucose Random 113 mg/dL (60-115); HDL Cholesterol 28 mg/dL (>40); Potassium 4.1 mmol/L (3.3-5.1); Sodium 144 mmol/L (135-145); Total Protein 7.4 g/dL (6.5-8.0); Triglycerides 479 mg/dL (<150)
[2024-07-09 13:44] LABS: TSH reflex Free T4 1.21 uIU/mL (0.32-4.0)
[2024-07-09] MEDS: gadobutroL 10 ML VIAL IVPUSH (13:47)
[2024-07-09 13:50] LABS: Free T4 (Free Thyroxine) 0.82 ng/dL (0.71-1.85); Thyroid Stimulating Hormone 1.11 uIU/mL (0.32-4.0)
[2024-07-09 13:57] LABS: Folate 3.8 ng/mL (> or = 4.0); Vitamin B12 602 pg/mL (200-900)
[2024-07-11 00:18] LABS: Immunoglobulin A 214 mg/dL (47-310)
[2024-07-12 19:33] LABS: Transglutaminase IgA <1.0 U/mL
== END 2024-07-09 12:21 | disposition home or self-care (01) ==
LOC: HO.MRI 12:20
PROVIDERS: PCP Internal Medicine; Visit Provider Internal Medicine
DX: K52.9 Noninfective gastroenteritis and colitis, unspecified (principal); R73.01 Impaired fasting glucose; E78.00 Pure hypercholesterolemia, unspecified; R79.89 Other specified abnormal findings of blood chemistry; Q45.3 Other congenital malformations of pancreas and pancreatic duct
CPT/HCPCS: 36415; 74183; 80053; 80061; 82248; 82607; 82746; 82784; 83036; 84439; 84443; 85025; 85027; 86140; 86364; A9585

== ENCOUNTER → 2024-07-09 13:02 | Outpatient (BNV) | payer OTHER, SELFPAY | PROVIDERS: PCP Internal Medicine; Visit Provider Radiology Diagnostic Radiology | DX: K52.9 Noninfective gastroenteritis and colitis, unspecified (principal); R16.0 Hepatomegaly, not elsewhere classified; K76.0 Fatty (change of) liver, not elsewhere classified | CPT/HCPCS: 74183 ==

== ENCOUNTER 2024-07-20 11:17 | Outpatient (REF) | payer OTHER, SELFPAY ==
[2024-07-20 12:21] LABS: Estimated Average Glucose 123 mg/dL; Hemoglobin A1C 159.6739 umol/L; Hemoglobin A1c % 5.9 % (<6.0)
[2024-07-20 12:48] LABS: Alanine Aminotransferase 44 U/L (0-40); Albumin Level 4.2 g/dL (3.5-5.0); Alkaline Phosphatase 61 U/L (39-117); Anion Gap 11 (12-20); Aspartate Amino Transferase 28 U/L (5-37); Bilirubin Total 0.4 mg/dL (0.0-1.0); Blood Urea Nitrogen 12 mg/dL (9-16); Calcium 9.3 mg/dL (8.4-10.2); Carbon Dioxide 24 mmol/L (22-29); Chloride 110 mmol/L (96-108); Cholesterol 181 mg/dL (<200); Estimated Glomerular Filt Rate > 60; Glucose Random 116 mg/dL (60-115); HDL Cholesterol 30 mg/dL (>40); LDL Cholesterol Calculated 93 mg/dL (<100); Sodium 141 mmol/L (135-145); Total Protein 6.9 g/dL (6.5-8.0); Triglycerides 292 mg/dL (<150)
--- OUTSIDE RECORDS SUMMARY | 2024-07-20 13:51 | XMS_ITS | Clinical Summary ---
Author Organization [employer] Address [address] [place] [id number] Care Team Providers Care Special Forces Engineer Sergeant Name Role Phone Unavailable Primary Care Provider [...] ( - 2023-25 season) 2023 Influenza Vaccine (Season Ended) 2024 01/24/20 20 RSV Vaccine (SCDM) (1 - 1-dose 75+ series) 2056 Insurance [employer]
[2024-07-24 12:02] LABS: Fecal Fat Qualitative Normal (Normal)
[2024-07-25 17:18] LABS: Calprotectin, Fecal 9 mcg/g
[2024-07-26 17:38] LABS: Pancreatic Elastase-1 >800 mcg/g (>200)
== END 2024-07-20 11:18 | disposition home or self-care (01) ==
LOC: HO.LAB 11:17
PROVIDERS: Internal Medicine; PCP Internal Medicine; Visit Provider Internal Medicine
DX: K52.9 Noninfective gastroenteritis and colitis, unspecified (principal); E78.00 Pure hypercholesterolemia, unspecified; Q45.3 Other congenital malformations of pancreas and pancreatic duct
CPT/HCPCS: 36415; 80053; 80061; 82656; 82705; 83036; 83993

== ENCOUNTER 2024-07-22 14:28 | Outpatient (AMB) | payer OTHER, SELFPAY ==
[2024-07-22 14:48] VITALS: BP 142/90; PULSE 66; TEMP 36.4; O2SAT 99; BMI 37.8
--- NOTE | 2024-07-22 14:48 | MHC.PC.OV ---
Vital Signs 07/22/24 14:48 Height 5 ft 8 in Weight 248 lb 8 oz BMI 37.8 BP 142/90 H Blood Pressure Location Lt brachial Position Sitting Pulse 66 Pulse Source Pulse Oximeter Temp 97.5 F Temp Source Temporal Artery Scan Pulse Oximetry (%) 99 Oxygen Delivery Method Room Air Intake Visit Reasons: obesity Fixed Income Analyst Required: No Accompanied by: Self / Same As Patient Allergies metronidazole [From FLAGYL] Allergy (Severe, Verified 07/22/24 14:53) SWELLING THROAT Medication List - Last Reconciled 07/22/24 by Ashwin Menendez MD albuterol sulfate 90 mcg/actuation 2 puffs PO Q6H PRN fluticasone propionate 110 mcg/actuation (Flovent HFA) 2 puffs PO BID fluticasone propionate 50 mcg/actuation (Flonase Allergy Relief) 1 spray intranasal BID lisinopril 5 mg PO DAILY montelukast (Singulair) 10 mg PO BEDTIME 90 days omeprazole 20 mg PO DAILY 90 days peg 3350-electrolytes 236-22.74-6.74 -5.86 gram (Golytely) 240 mL PO Q10M phentermine 37.5 mg PO DAILY Tobacco use date assessed: 07/22/24 Dental Screening Dental Screen Date: 07/22/24 Did you have a dental visit in the last 12 months?: Yes Did you have a dental problem in the last 6 months where you did not have access to dental care?: No Was dental information given to patient?: Patient has dentist HPI obesity HPI Details complains of swelling. PAtient received a letter of denial of the [facility] and has advised phentermine- warned paitnet of tachycardia and palpitations [facility] Medical History (Updated 07/22/24 @ 15:01 by Ashwin Menendez MD) Smoker LLQ abdominal pain Puncture wound of skin from metal nail Injury of toe on left foot Umbilical hernia Left knee pain Headache Productive cough Right-sided chest wall pain Tooth pain Colitis Asthma Allergic rhinitis ELIZABETH (obstructive sleep apnea) Obesity (BMI 30-39.9) Hypersomnia Hypertension Fatty liver Vitamin D deficiency Gout Tobacco abuse GERD (gastroesophageal reflux disease) Hypercholesterolemia Obesity (BMI 30-39.9) Alcohol abuse Tear of biceps tendon Medial epicondylitis Surgical History History of surgery on arm History of left inguinal hernia repair (~2021) History of umbilical hernia repair (~2021) History of inguinal hernia repair Family History Father Hypertension Mother No problems noted. Brother No problems noted. Sister No problems noted. Paternal Uncle Colon cancer Paternal Aunt Colon cancer Social History Housing: House Are you a primary health care aide to a significant other at home: No Do you presently have visiting nurse or other home services: No Alcohol intake: current Alcohol intake frequency: holidays/special occasions only Comment: once a week 2 drinks Patient Tobacco Use Status: Current everyday Tobacco user Tobacco use type: Cigarette Cigarettes Per Day: 10 Years Smoked: states 04/2024 5-6 cigarettes a day e-Cigarette/Vaping Use: Never Used Second Hand Smoke Exposure: No service: No Current occupational status: employed 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 - [employer]. Cognitive needs: No Hearing needs: No Vision needs: Yes (Glasses) Questionnaire Thrive Questionnaire Date Thrive assessed: 04/23/24 I am a: Patient What is your living situation today?: I have a steady place to live Within the past 12 months, did the food you bought not last and you didn't have the money to get more?: I choose not to answer this question Within the past 12 months, did you worry whether your food would run out before you got money to buy more?: I choose not to answer this question Do you have trouble paying for medicines?: No Do you have trouble getting transportation to medical appointments?: No Do you have trouble paying your heating and electricity bill?: I choose not to answer this question Do you have trouble taking care of your child, family member or friend?: I choose not to answer this question Do you have trouble with day-to-day activities such as bathing, preparing meals, shopping, managing finances, etc.?: I choose not to answer this question Are you currently unemployed and looking for a job?: No Are you interested in more education?: No Please select the resources that you would like help with: None Currently or been in a relationship where the following occur: I choose not to answer THRIVE Score: 0 MARLEN-7 AMB Questionnaire MARLEN-7 Date MARLEN - 7 assessed: 04/23/24 Source: Developed by DrsIvelisse Alfredo, Melinda Mccracken, Master Benito and colleagues, with an educational vanesa from [employer]. Physical exam (Primary Care) Vital Signs: Last Vital Signs Temp 97.5 F 07/22/24 14:48 Pulse 66 07/22/24 14:48 BP 142/90 H 07/22/24 14:48 Pulse Ox 99 07/22/24 14:48 Oxygen Delivery Method Room Air 07/22/24 14:48 BMI result Body Mass Index 37.8 Tobacco/Smoking Status: Tobacco use Status Tobacco use date assessed 07/22/24 07/22/24 14:49 Patient Tobacco Use Status Current everyday Tobacco 07/22/24 14:49 Tobacco use type Cigarette 07/22/24 14:49 e-Cigarette/Vaping Use Never Used 07/22/24 14:49 Thrive Assessment: Date of Thrive Assessment Date Thrive assessed 04/23/24 07/22/24 14:49 Currently or been in a relationship where the following occur: I choose not to answer Const General: alert; No acute distress Eyes Conjunctivae: conjunctivae normal Resp Auscultation: clear to auscultation bilaterally Cardio Rate: regular rate Rhythm: regular rhythm GI Inspection: Yes normal to inspection Extrem General: Yes normal to inspection and No edema Coding Level of Care Code Est Pt Level 4 (59363) Complex EM visit Add On G2211 Diagnoses Chronic diarrhea K52.9 Asthma J45.909 ELIZABETH (obstructive sleep apnea) G47.33 Obesity (BMI 30-39.9) E66.9 Impaired fasting blood sugar R73.01 Tobacco abuse Z72.0 Gastroesophageal reflux disease without esophagitis K21.9 Esophagitis presence: without esophagitis Hypercholesterolemia E78.00 Assessment & Plan Assessment & Plan (1) Chronic diarrhea: Code(s): K52.9 - Noninfective gastroenteritis and colitis, unspecified Category: Medical Plan: Patient has met with Gastroenterology in workup requested. (2) Asthma: Comment: MILD TO MODERTAE , CONTROLLED WITH CURRENT REGIMEN. HAS HAD NO ACUTE FLARE UPS. Code(s): J45.909 - Unspecified asthma, uncomplicated Category: Medical Plan: On albuterol and Flovent (3) ELIZABETH (obstructive sleep apnea): Comment: Known case of obstructive sleep apnea secondary to gross obesity and nasal congestion. He does use CPAP at night, and compliance has somewhat improved from before. Denies any issues with the mask or CPAP device Code(s): G47.33 - Obstructive sleep apnea (adult) (pediatric) Category: Medical Plan: Advised to continue use CPAP more than 4 hours a night and benefits from this. (4) Obesity (BMI 30-39.9): Comment: BMI= 38.2 .WEIGHT SEEMS TO BE AT A STANDSTILL. Code(s): E66.9 - Obesity, unspecified Category: Medical Plan: Diet and exercise (5) Impaired fasting blood sugar: Code(s): R73.01 - Impaired fasting glucose Category: Medical Plan: Decrease the amount of carbohydrate intake, pasta, bread, rice and potatoes are all sugar and that is aside from all the sweet stuff, remember that fruits are good but they are Sweet also. Hemoglobin A1c noted to be 5.9 (6) Tobacco abuse: Code(s): Z72.0 - Tobacco use Category: Medical Plan: Patient is strongly advised to stop smoking (7) GERD (gastroesophageal reflux disease): Code(s): K21.9 - Gastro-esophageal reflux disease without esophagitis Category: Medical Qualifiers: Esophagitis presence: without esophagitis Qualified Code(s): K21.9 - Gastro-esophageal reflux disease without esophagitis Plan: Advised to stop smoking! GERD plan (8) Hypercholesterolemia: Code(s): E78.00 - Pure hypercholesterolemia, unspecified Category: Medical Plan: Avoid fried foods, chicken skin, eggs, butter margarine, pastries and meat. Be it pork or beef they have a lot of cholesterol LDL goal of less than 130 and triglyceride of less than 150. (9) Obesity (BMI 30-39.9): Code(s): E66.9 - Obesity, unspecified Category: Medical Plan: Diet and exercise Plan History of Present Illness The patient is a 43-year-old male presenting for follow-up regarding his management of chronic conditions, including obesity, hypercholesterolemia, and essential hypertension. He reports ongoing issues with GERD, obstructive sleep apnea, and asthma. The patient is also concerned about heightened nocturnal eating, contributing to relationship stress. He underwent an MRI in June, revealing hepatosteatosis, and has completed a left wrist arthroscopic surgery earlier in the same month. His latest blood work indicates elevated blood sugar levels, prompting further dietary and medication discussions for diabetes prevention. Despite progress on his triglyceride levels, he continues to require guidance in optimizing lifestyle changes, particularly regarding quitting smoking?a recommendation made during the visit. The feasibility of weight-reducing medications such as Phentermine was discussed; however, potential side effects were noted, prompting consideration for non-pharmacologic interventions. Health Maintenance - Encouraged smoking cessation due to associated health risks. - Advised increased adherence to CPAP therapy for obstructive sleep apnea. - Discussed the importance of diet and exercise in achieving glycemic control and weight management. - Encouraged diet modification to lower cholesterol and triglyceride levels. - Considered blood pressure management pharmacotherapy with Lisinopril 5 mg once weekly. - Reviewed nocturnal eating habits with emphasis on behavioral intervention. Social History - Tobacco use continues; advised cessation. - Patient reports night eating contributing to relationship stress. - Encouraged lifestyle modification through diet and exercise. Review of Systems - Respiratory: Reports asthma managed with Flovent and albuterol. - Neurological: Reports no headaches, nausea, or ear pain, but experiences occasional muscle tension. - Musculoskeletal: Reports left wrist post-arthroscopic repair; ongoing left top foot tendon tenderness. - Endocrine: Reports nocturnal eating urges and elevated blood sugar levels. - Cardiovascular: Denies chest pain. - General: Reports obesity and related dietary concerns. Physical Exam - Musculoskeletal- Noted tenderness over tendons of the left foot. - Neurological- Muscle tension identified, no headache or ear discomfort. - No specific detailed findings were noted directly during this visit in other systems. Results - Labs: - Blood sugar elevated at 116 mg/dL, Hemoglobin A1c at 5.9%. - Triglyceride level at 152 mg/dL, LDL cholesterol level at 93 mg/dL. - Imaging: - June 2024 MRI indicated hepatosteatosis, pancreas unremarkable. Plan A comprehensive management strategy was outlined to tackle multiple chronic disorders, prioritizing lifestyle modifications emphasizing smoking cessation, and obesity management through diet and exercise. Our objectives also target better glycemic control and ensuring adherence to asthma and obstructive sleep apnea therapies. Initial hypertension management will commence with Lisinopril at a starting dose of 5 mg weekly, with further evaluations expected in subsequent follow-ups. Cholesterol management was reinforced, focusing on maintaining the patient's current LDL and triglyceride goals. Follow-up in four weeks will provide an opportunity to reassess the patient's progress and adapt plans as necessary. Patient was informed and verbally consented to the use of an ambient scribe for clinic note documentation during this visit. Discussion Notes In today's visit, we reviewed the patient's chronic conditions and discussed management strategies to ensure optimal control. Interventions including diet and exercise were strongly highlighted to address his elevated blood sugar and obesity. We talked about the possibility of using Phentermine in the future but prioritized behavioral changes. Smoking cessation was stressed as advantageous to his overall health recovery. The patient expressed willingness to resume CPAP usage and manage asthma acutely with current prescriptions. Hypertension control potentially starting with Lisinopril was introduced and accepted by the patient. A follow-up plan was established to reassess and refine ongoing treatment regimens, particularly emphasizing cholesterol and blood sugar management goals. Patient Instructions - Continue using CPAP for at least four hours each night. - Maintain current asthma medications: Flovent and albuterol. - Adhere to dietary recommendations to manage weight and blood sugar levels. - Prioritize smoking cessation efforts; resources discussed. - Report any side effects of newly commenced hypertension medication. - Continue routine lifestyle-focused interventions: diet, exercise. - Schedule a follow-up appointment in four weeks for further evaluation. - Seek medical advice if new or worsening symptoms arise. Medications: New phentermine must administer 30 minutes before or 1-2 hours after breakfast 37.5 mg PO DAILY 30 caps 0RF E66.9 - Obesity, unspecified lisinopril 5 mg PO DAILY 30 tabs 3RF I10 - Essential (primary) hypertension Refilled omeprazole 20 mg PO DAILY 90 caps 2RF 90 days K21.9 - Gastro-esophageal reflux disease without esophagitis
--- OUTSIDE RECORDS SUMMARY | 2024-07-22 17:11 | XMS_ITS | Clinical Summary ---
Author Organization [employer] Address [address] [place] [id number] Care Team Providers Care Travel Registered Nurse Nicu Name Role Phone Unavailable Primary Care Provider [...]
== END 2024-07-22 15:21 | disposition home or self-care (01) ==
LOC: HO.HMCH 14:28
PROVIDERS: PCP Internal Medicine; Visit Provider Internal Medicine
DX: K52.9 Noninfective gastroenteritis and colitis, unspecified (principal); E66.9 Obesity, unspecified; Z68.37 Body mass index [BMI] 37.0-37.9, adult; J45.909 Unspecified asthma, uncomplicated; G47.33 Obstructive sleep apnea (adult) (pediatric); R73.01 Impaired fasting glucose; Z72.0 Tobacco use; K21.9 Gastro-esophageal reflux disease without esophagitis; E78.00 Pure hypercholesterolemia, unspecified

== ENCOUNTER → 2024-07-22 14:28 | Outpatient (BNVA) | payer OTHER, SELFPAY | PROVIDERS: PCP Internal Medicine; Visit Provider Internal Medicine | DX: K52.9 Noninfective gastroenteritis and colitis, unspecified (principal); J45.909 Unspecified asthma, uncomplicated; G47.33 Obstructive sleep apnea (adult) (pediatric); E66.9 Obesity, unspecified; R73.01 Impaired fasting glucose; F17.210 Nicotine dependence, cigarettes, uncomplicated; K21.9 Gastro-esophageal reflux disease without esophagitis; E78.00 Pure hypercholesterolemia, unspecified; Z68.37 Body mass index [BMI] 37.0-37.9, adult | CPT/HCPCS: 99212 ==

== ENCOUNTER 2024-08-24 14:35 | Outpatient (AMB) | payer OTHER, SELFPAY ==
[2024-08-24 14:42] VITALS: BP 152/82; PULSE 92; O2SAT 96; BMI 37.2
--- NOTE | 2024-08-24 14:42 | A.OFFPC_ITS ---
Vital Signs 08/24/24 14:42 Height 5 ft 8 in Weight 245 lb BMI 37.2 BP 152/82 H Blood Pressure Location Lt brachial Position Sitting Pulse 92 Pulse Source Pulse Oximeter Pulse Oximetry (%) 96 Oxygen Delivery Method Room Air Intake Visit Reasons: 1 month f/u Allergies metronidazole [From FLAGYL] Allergy (Severe, Verified 08/24/24 14:42) SWELLING THROAT Tobacco use date assessed: 07/22/24 Dental Screening Dental Screen Date: 07/22/24 [facility] Medical History (Updated 07/22/24 @ 15:01 by Ashwin Menendez MD) Smoker LLQ abdominal pain Puncture wound of skin from metal nail Injury of toe on left foot Umbilical hernia Left knee pain Headache Productive cough Right-sided chest wall pain Tooth pain Colitis Asthma Allergic rhinitis ELIZABETH (obstructive sleep apnea) Obesity (BMI 30-39.9) Hypersomnia Hypertension Fatty liver Vitamin D deficiency Gout Tobacco abuse GERD (gastroesophageal reflux disease) Hypercholesterolemia Obesity (BMI 30-39.9) Alcohol abuse Tear of biceps tendon Medial epicondylitis Surgical History History of surgery on arm History of left inguinal hernia repair (~2021) History of umbilical hernia repair (~2021) History of inguinal hernia repair Family History Father Hypertension Mother No problems noted. Brother No problems noted. Sister No problems noted. Paternal Uncle Colon cancer Paternal Aunt Colon cancer Social History Housing: House Are you a primary home health care coordinator to a significant other at home: No Do you presently have visiting nurse or other home services: No Alcohol intake: current Alcohol intake frequency: holidays/special occasions only Comment: once a week 2 drinks Patient Tobacco Use Status: Current everyday Tobacco user Tobacco use type: Cigarette Cigarettes Per Day: 10 Years Smoked: states 04/2024 5-6 cigarettes a day e-Cigarette/Vaping Use: Never Used Second Hand Smoke Exposure: No service: No Current occupational status: employed 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 - [employer]. Cognitive needs: No Hearing needs: No Vision needs: Yes (Glasses) Questionnaire Thrive Questionnaire Date Thrive assessed: 04/23/24 I am a: Patient What is your living situation today?: I have a steady place to live Within the past 12 months, did the food you bought not last and you didn't have the money to get more?: I choose not to answer this question Within the past 12 months, did you worry whether your food would run out before you got money to buy more?: I choose not to answer this question Do you have trouble paying for medicines?: No Do you have trouble getting transportation to medical appointments?: No Do you have trouble paying your heating and electricity bill?: I choose not to answer this question Do you have trouble taking care of your child, family member or friend?: I choose not to answer this question Do you have trouble with day-to-day activities such as bathing, preparing meals, shopping, managing finances, etc.?: I choose not to answer this question Are you currently unemployed and looking for a job?: No Are you interested in more education?: No Please select the resources that you would like help with: None Currently or been in a relationship where the following occur: I choose not to answer THRIVE Score: 0 MARLEN-7 AMB Questionnaire MARLEN-7 Date MARLEN - 7 assessed: 04/23/24 Source: Developed by Drs. Anthony Alfredo, Melinda Mccracken, Master Benito and colleagues, with an educational vanesa from [employer]. Physical exam (Primary Care) Vital Signs: Last Vital Signs Pulse 92 08/24/24 14:42 BP 152/82 H 08/24/24 14:42 Pulse Ox 96 08/24/24 14:42 Oxygen Delivery Method Room Air 08/24/24 14:42 BMI result Body Mass Index 37.2 Tobacco/Smoking Status: Tobacco use Status Tobacco use date assessed 07/22/24 08/24/24 14:46 Patient Tobacco Use Status Current everyday Tobacco 08/24/24 14:46 Tobacco use type Cigarette 08/24/24 14:46 e-Cigarette/Vaping Use Never Used 08/24/24 14:46 Thrive Assessment: Date of Thrive Assessment Date Thrive assessed 04/23/24 08/24/24 14:46 Currently or been in a relationship where the following occur: I choose not to answer Const General: alert; No acute distress Eyes Conjunctivae: conjunctivae normal Resp Auscultation: clear to auscultation bilaterally Cardio Rate: regular rate Rhythm: regular rhythm GI Inspection: Yes normal to inspection Extrem General: Yes normal to inspection and No edema Coding Level of Care Code Est Pt Level 4 (60926) Complex EM visit Add On G2211 Diagnoses Asthma J45.909 ELIZABETH (obstructive sleep apnea) G47.33 Obesity (BMI 30-39.9) E66.9 Impaired fasting blood sugar R73.01 Essential hypertension I10 Hypertension type: essential hypertension Tobacco abuse Z72.0 Tear of triangular fibrocartilage of left wrist S63.558A Assessment & Plan Assessment & Plan (1) Asthma: Comment: MILD TO MODERTAE , CONTROLLED WITH CURRENT REGIMEN. HAS HAD NO ACUTE FLARE UPS. Code(s): J45.909 - Unspecified asthma, uncomplicated Category: Medical Plan: Patient on albuterol inhaler and Flovent. Rinse mouth after using Flovent (2) ELIZABETH (obstructive sleep apnea): Comment: Known case of obstructive sleep apnea secondary to gross obesity and nasal congestion. He does use CPAP at night, and compliance has somewhat improved from before. Denies any issues with the mask or CPAP device Code(s): G47.33 - Obstructive sleep apnea (adult) (pediatric) Category: Medical Plan: Discussed about importance of using the CPAP. Use the CPAP more than 4 hours a night and benefits from this (3) Obesity (BMI 30-39.9): Comment: BMI= 38.2 .WEIGHT SEEMS TO BE AT A STANDSTILL. Code(s): E66.9 - Obesity, unspecified Category: Medical Plan: Diet and exercise (4) Impaired fasting blood sugar: Code(s): R73.01 - Impaired fasting glucose Category: Medical Plan: Decrease the amount of carbohydrate intake, pasta, bread, rice and potatoes are all sugar and that is aside from all the sweet stuff, remember that fruits are good but they are Sweet also. (5) Hypertension: Code(s): I10 - Essential (primary) hypertension Category: Medical Qualifiers: Hypertension type: essential hypertension Qualified Code(s): I10 - Essential (primary) hypertension Plan: Continue with blood pressure medication. Decrease salt intake and exercise patient on lisinopril 5 mg once a day (6) Tobacco abuse: Code(s): Z72.0 - Tobacco use Category: Medical Plan: Advised stop smoking strongly! (7) Tear of triangular fibrocartilage of left wrist: Comment: Complete tear of the triangular far fibrocartilage left wrist status post arthrotomy possible triangular fibrocartilage debridement repair May 2024 Dr. Estrella Code(s): S63.592A - Other specified sprain of left wrist, initial encounter Category: Medical Plan: Patient follows up with ortho after left wrist surgery Plan History of Present Illness The patient is a 44-year-old male presenting for a follow-up visit. He reports a history of obesity, smoking, gastroesophageal reflux disease, hypercholesterolemia, impaired glucose tolerance, obstructive sleep apnea, and asthma. He currently uses an albuterol inhaler and Flovent for asthma management and adheres to rinsing his mouth post-inhalation. The patient's compliance with CPAP therapy for obstructive sleep apnea appears beneficial as he maintains usage for more than 4 hours nightly. Additionally, the patient has been followed by orthopedics for a previous left wrist injury resulting in a triangular fibrocartilage complex tear. Diagnostic blood work, completed on July 09, demonstrated normal blood counts, no anemia, adequate electrolytes, and normal renal function; however, glucose levels indicated impaired glucose tolerance with a hemoglobin A1c of 5.9. Cholesterol levels were elevated, with triglycerides reaching 292. The patient has been prescribed lisinopril 5 mg once daily for hypertension, but adherence remains inconsistent. Health Maintenance - Advised on the importance of CPAP utilization (>4 hours nightly) for obstructive sleep apnea. - Strongly advised smoking cessation due to associated health risks. - Discussed diet and exercise in the management of obesity, hypercholesterolemia, and impaired glucose tolerance. - Blood work from July 09 reviewed: normal blood count, normal electrolytes, normal renal function, with elevated blood sugar and lipid profile. Social History - Current smoker. - Non-compliance with lisinopril 5 mg once daily for hypertension due to forgetfulness. Review of Systems - General: Denies fatigue. - Respiratory: Reports use of albuterol inhaler and Flovent. Denies shortness of breath. - Gastrointestinal: Reports history of gastroesophageal reflux disease. - Endocrine: Reports impaired glucose tolerance. - Musculoskeletal: Reports history of left wrist pain related to previous triangular fibrocartilage complex tear. Physical Exam Results - Labs: Normal blood count, normal electrolytes, normal renal function, elevated blood sugar, hemoglobin A1c of 5.9, elevated cholesterol and LDL, and triglycerides at 292. Plan The management plan focuses on chronic conditions with lifestyle changes being a priority. Asthma management continues with inhalers, emphasizing mouth rinsing post-use. Utilizing CPAP over 4 hours nightly remains crucial for sleep apnea. Smoking cessation receives strong emphasis due to its broader health impacts. For obesity and glucose intolerance, dietary and exercise adherence is encouraged. The current lisinopril regimen is reinforced for blood pressure control with a need for consistent usage. Blood pressure and lipid profiles require continued monitoring, with ongoing communication for medication needs. Follow up on post-surgical orthopedics care ensures wrist healing and function. Patient was informed and verbally consented to the use of an ambient scribe for clinic note documentation during this visit. Discussion Notes During the consultation, I reviewed the patient's current diagnoses and emphasized the importance of lifestyle modifications, particularly focusing on smoking cessation due to the exacerbation of asthma and overall health risks. We discussed the benefits of consistent CPAP use for managing obstructive sleep apnea. Medication adherence, particularly lisinopril for hypertension, was stressed to control blood pressure effectively. The patient was informed of elevated cholesterol and glucose levels and advised on dietary and exercise changes to mitigate these. We agreed on monitoring strategies for blood pressure and lipid profiles and encouraged communication for any medication refills. Follow-up care with the orthopedic department concerning the post-operative wrist condition was reiterated. Patient Instructions - Make sure to use CPAP machine for more than 4 hours each night. - Stop smoking to improve overall health. - Take lisinopril 5 mg daily for controlling blood pressure. - Follow diet and exercise plan for managing weight and improved glucose levels. - Rinse your mouth after each use of Flovent inhaler. - Inform if you need medication refills. - Follow up with orthopedics as directed for wrist care.
--- OUTSIDE RECORDS SUMMARY | 2024-08-24 15:46 | XMS_ITS | Clinical Summary ---
Author Organization [facility] Address [address] [place] [address] Care Team Providers Care Operations Manager/Coordinator Name Role Phone Unavailable Primary Care Provider [...] - Tdap) 2000 COVID-19 Vaccine ( - 2023- season) 2023 Influenza Vaccine (Season Ended) 2024 01/24/20 20 RSV Vaccine (SCDM) (1 - 1-dose 75+ series) 2056 Insurance CIG
== END 2024-08-24 15:15 | disposition home or self-care (01) ==
LOC: HO.HMCH 14:36
PROVIDERS: PCP Internal Medicine; Visit Provider Internal Medicine
DX: J45.909 Unspecified asthma, uncomplicated (principal); G47.33 Obstructive sleep apnea (adult) (pediatric); E66.9 Obesity, unspecified; Z68.37 Body mass index [BMI] 37.0-37.9, adult; R73.01 Impaired fasting glucose; I10 Essential (primary) hypertension; Z72.0 Tobacco use; S63.592A Other specified sprain of left wrist, initial encounter

== ENCOUNTER → 2024-08-24 14:35 | Outpatient (BNVA) | payer OTHER, SELFPAY | PROVIDERS: PCP Internal Medicine; Visit Provider Internal Medicine | DX: J45.909 Unspecified asthma, uncomplicated (principal); G47.33 Obstructive sleep apnea (adult) (pediatric); E66.9 Obesity, unspecified; Z68.37 Body mass index [BMI] 37.0-37.9, adult; R73.01 Impaired fasting glucose; I10 Essential (primary) hypertension; Z79.899 Other long term (current) drug therapy; Z99.89 Dependence on other enabling machines and devices | CPT/HCPCS: 99212 ==

== ENCOUNTER 2024-09-13 08:34 | Day surgery (SDC) | payer OTHER, SELFPAY ==
--- NOTE | 2024-09-10 12:31 | HO.ANESPROP2 ---
Documented by User: Alyson Rowe NP 09/10/24 12:33 HPI - Anesthesia Eval Consult details Narrative: 44yo M for Upper Endoscopy and Colonoscopy [facility] Active Problems Active Problems: All Active Problems Elevated LFTs (Acute) Pancreatic abnormality (Acute) Chronic diarrhea (Acute) Tear of triangular fibrocartilage of left wrist (Acute) Smoker (Acute) Back pain (Acute) Otitis media (Acute) Rectal bleeding (Acute) Umbilical hernia (Acute) Inguinal hernia of left side without obstruction or gangrene (Acute) Erectile dysfunction (Acute) Annual physical exam (Acute) Right-sided back pain (Acute) Bilateral knee pain (Acute) Asthma (Acute) Allergic rhinitis (Acute) ELIZABETH (obstructive sleep apnea) (Acute) Obesity (BMI 30-39.9) (Acute) Impaired fasting blood sugar (Acute) Hypertension (Acute) Tobacco abuse (Acute) GERD (gastroesophageal reflux disease) (Acute) Hypercholesterolemia (Acute) Obesity (BMI 30-39.9) (Acute) Past Medical History Medical History Smoker LLQ abdominal pain Puncture wound of skin from metal nail Injury of toe on left foot Umbilical hernia Left knee pain Headache Productive cough Right-sided chest wall pain Tooth pain Colitis Asthma Allergic rhinitis ELIZABETH (obstructive sleep apnea) Obesity (BMI 30-39.9) Hypersomnia Hypertension Fatty liver Vitamin D deficiency Gout Tobacco abuse GERD (gastroesophageal reflux disease) Hypercholesterolemia Obesity (BMI 30-39.9) Alcohol abuse Tear of biceps tendon Medial epicondylitis Family History Family History Father Hypertension Mother No problems noted. Brother No problems noted. Sister No problems noted. Paternal Uncle Colon cancer Paternal Aunt Colon cancer Family history of problems with anesthesia: No Surgical History Surgical History History of surgery on arm History of left inguinal hernia repair (~2021) History of umbilical hernia repair (~2021) History of inguinal hernia repair History of Problems with Anesthesia: No Social History Social History Housing: House Are you a primary medication care manager to a significant other at home: No Do you presently have visiting nurse or other home services: No Alcohol intake: current Alcohol intake frequency: holidays/special occasions only Comment: once a week 2 drinks Patient Tobacco Use Status: Current everyday Tobacco user Tobacco use type: Cigarette Cigarette Packs Per Day: 0.5 Cigarettes Per Day: 10.0 Years Smoked: [facility] 04/2024 5-6 cigarettes a day e-Cigarette/Vaping Use: Never Used Second Hand Smoke Exposure: No Use of substances other than those prescribed or required for medical reasons: No Are you DNR?: No Advance Directives: No Advance Directives Information Provided: Yes service: No Current occupational status: employed 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 - [employer]. Cognitive needs: No Hearing needs: No Vision needs: Yes (Glasses) Meds Allergies Allergy/AdvReac Type Severity Reaction Status Date / Time metronidazole [From FLAGYL] Allergy Severe SWELLING Verified 08/24/24 14:42 THROAT Exam Pertinent Lab Results Pertinent Lab Results: Laboratory Tests 07/09/24 07/20/24 12:49 11:41 WBC 7.4 Hgb 15.3 Hct 44.7 Plt Count 293 Sodium 141 Potassium 4.0 Chloride 110 H Carbon Dioxide 24 BUN 12 Creatinine 0.76 Assessment and Plan Assessment Anesthesia Assessment: Chart Reviewed Final Anesthetic Review Family History of Problems with Anesthesia: No History of Problems with Anesthesia: No Documented by User: Marry Henry MD 09/13/24 10:31 [facility] Past Medical History Medical History Smoker LLQ abdominal pain Puncture wound of skin from metal nail Injury of toe on left foot Umbilical hernia Left knee pain Headache Productive cough Right-sided chest wall pain Tooth pain Colitis Asthma Allergic rhinitis ELIZABETH (obstructive sleep apnea) Obesity (BMI 30-39.9) Hypersomnia Hypertension Fatty liver Vitamin D deficiency Gout Tobacco abuse GERD (gastroesophageal reflux disease) Hypercholesterolemia Obesity (BMI 30-39.9) Alcohol abuse Tear of biceps tendon Medial epicondylitis Family History Family History Father Hypertension Mother No problems noted. Brother No problems noted. Sister No problems noted. Paternal Uncle Colon cancer Paternal Aunt Colon cancer Surgical History Surgical History History of surgery on arm History of left inguinal hernia repair (~2021) History of umbilical hernia repair (~2021) History of inguinal hernia repair Social History Social History Housing: House Are you a primary medication care manager to a significant other at home: No Do you presently have visiting nurse or other home services: No Alcohol intake: current Alcohol intake frequency: holidays/special occasions only Comment: once a week 2 drinks Patient Tobacco Use Status: Current everyday Tobacco user Tobacco use type: Cigarette Cigarette Packs Per Day: 0.5 Cigarettes Per Day: 10.0 Years Smoked: [facility] 04/2024 5-6 cigarettes a day e-Cigarette/Vaping Use: Never Used Second Hand Smoke Exposure: No Use of substances other than those prescribed or required for medical reasons: No Are you DNR?: No Advance Directives: No Advance Directives Information Provided: Yes service: No Current occupational status: employed 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 - [employer]. Cognitive needs: No Hearing needs: No Vision needs: Yes (Glasses) Meds Allergies Allergy/AdvReac Type Severity Reaction Status Date / Time metronidazole [From FLAGYL] Allergy Severe SWELLING Verified 08/24/24 14:42 THROAT Exam Airway Mallampati Class: III TM Dist: >3cm Neck ROM: Full Loose/Missing/Broken Teeth: No Heart: RRR Lungs: CTA Assessment and Plan Assessment Anesthesia Assessment: Anesthesia Plan Discussed Final Anesthetic Review NPO: Yes ASA Class: III Final Preanesthetic Review: Meds/Allgs Chart Reviewed, Consent Obtained/Reviewed and Anes Risks/Benef Reviewed Patient Risk: Intermediate Procedure Risk: Intermediate Anesthetic Plan Anesthetic Plan: MAC: Disposition: Standard PACU
--- NOTE | 2024-09-13 08:32 | MHC.SHP ---
Pre-Procedural Eval Section A - 24 Hr Update-Section A only Date of Service: 09/13/24 The patient is an INPATIENT: No The patient has been examined within 24 hours of the surgical procedure. The History & Physical has been completed within 30 days and I have reviewed it.: No Section B - Complete if H&P > 30 days Chief Complaint: Chronic diarrhea Relevant Family History (Specify if Yes): Yes Relevant Social History: Tobacco Use Present Medications: see Short Stay Collaborative assessment Medical History: Significant History (Umbilical hernia Left knee pain Headache Productive cough Right-sided chest wall pain Tooth pain Colitis Asthma Allergic rhinitis ELIZABETH (obstructive sleep apnea) Obesity (BMI 30-39.9) Hypersomnia Hypertension Fatty liver Vitamin D deficiency Gout Tobacco abuse GERD (gastroesophageal reflux disease)) History of Previous Operations: Relevant previous surgery/procedure and date(s) (History of surgery on arm History of left inguinal hernia repair (~2021) History of umbilical hernia repair (~2021) History of inguinal hernia repair) Allergies: Allergies Allergy/AdvReac Type Severity Reaction Status Date / Time metronidazole [From FLAGYL] Allergy Severe SWELLING Verified 08/24/24 14:42 THROAT Review of Systems Sugical H&P ROS: Negative: Constitution, Cardiovascular and Respiratory and Yes, Specify: Gastrointestinal (Chronic diarrhea) Exam Surgical H&P Exam: Normal: Heart, Normal: Lungs, Normal: Extremities and Normal: Abdomen Plan Diagnosis/Plan: Unchanged I have reviewed the history and physical and performed a pertinent physical examination on my patient. No changes have occurred unless specified. Time Spent With Patient Time: Total time managing care of this patient today ____ minutes.
[2024-09-13 09:20] VITALS: BP 126/71; PULSE 59; RESP 16; TEMP 36.8; O2SAT 97; BMI 36.8
[2024-09-13] MEDS: Lactated Ringers 1,000 ML 100 ML IVCONT (09:20)
--- NOTE | 2024-09-13 10:43 | HO.OPN-COLON ---
Colonoscopy Operative Note Operative Note Date of Service: 09/13/24 Narrative: FLEXIBLE TRANSORAL UPPER GASTROINTESTINAL ENDOSCOPY WITH BIOPSIES AND ARTIS AND COLONOSCOPY TILL CECUM WITH BIOPSIES Pre-op diagnosis: Chronic diarrhea, family hx of colon cancer, GERD Post-op diagnosis: GERD, hiatal hernia, Gastritis, Colon Polyps, Diverticulosis, hemorrhoids Endoscopist:? Violeta Kaiser MD Anesthesia:?MAC UPPER ENDOSCOPY Consent: Indications for the procedure and potential complications of bleeding, perforation, reaction to medications and missed diagnosis were discussed with the patient and informed consent was obtained. Instrument: Olympus GIF H 190 mid size upper endoscope Monitoring: Vital signs and clinical assessment, continuous EKG monitoring, Pulse oximetry, Carbon Dioxide monitoring and blood pressure monitoring were done throughout the procedure. Procedure: The patient was placed in the left lateral decubitis position and pre-procedure medications were administered and a bite block was placed. The endoscope was inserted into the mouth and advanced under direct vision to the third part of duodenum. A careful inspection was made as the upper endoscope was withdrawn including a retroflexed examination of the proximal stomach; Findings and interventions are described below. Findings: Larynx: Normal Esophagus: Mildly tortuous esophagus without stricture or ring. An inlet patch from 18 to 20 cms - biopsies were obtained. Hiatal hernia 35 to 40 cms. No esophagitis. A segment of possible Farris's 33 to 35 cms - biopsies obtained for histology and ARTIS Stomach: Moderate diffuse gastric erythema - biopsies were obtained from the gastric body and antrum antrum. Grade 2 flap valve on retroflexed examination of the cardia. Duodenum: Normal bulb and descending duodenum Biopsies were obtained from descending duodenum to check for celiac sprue Intervention: Biopsies as noted above COLONOSCOPY PROCEDURE NOTE Instrument: Olympus PCF H 190 L variable stiffness pediatric colonoscope Monitoring: Vital signs and clinical assessment, intermittent blood pressure monitoring, continuous EKG monitoring, Pulse oximetry and Carbon Dioxide monitoring were done throughout the procedure. Please see anesthesia flowsheet. Colon withdrawl time was 27 minutes. Procedure: The patient was placed in the left lateral decubitis position and pre-procedure medications were administered. After a digital rectal examination of the ano-rectum, the video colonoscope was inserted into the rectum and advanced through the colon to the cecum. The colonoscope was slowly withdrawn in a retrograde panoramic fashion and the colon mucosa was carefully examined including a retroflexed view of the rectum. Findings and interventions are described below. Procedure Difficulty: without difficulty Findings: Terminal Ileum: Not evaluated Cecum: Normal Ascending Colon: Normal Transverse Colon: Moderate diverticulosis Descending Colon: Moderate diverticulosis Sigmoid Colon: Severe diverticulosis with luminal narrowing and erythematous folds from 45 to 50 cms - biopsied Rectum: A 3-4 mm diminutive appearing polyp - removed with a cold biopsy Ano-rectum: Moderate internal hemorrhoids Colon preparation: Good after copious irrigation. There was excessive spasm in the colon during withdrawal Morris Bowel Preparation Scale Right colon; 2 Transverse colon: 2 Left colon; 2 (0 = Unprepared colon segment with mucosa not seen due to solid stool that cannot be cleared. 1 = Portion of mucosa of the colon segment seen, but other areas of the colon segment not well seen due to staining, residual stool and/or opaque liquid. 2 = Minor amount of residual staining, small fragments of stool and/or opaque liquid, but mucosa of colon segment seen well. 3 = Entire mucosa of colon segment seen well with no residual staining, small fragments of stool or opaque liquid) Impression and Post Procedure Diagnosis: Endoscopy Findings: ESOPHAGUS: Mildly tortuous esophagus without stricture or ring. Hiatal hernia, inlet patch and a 2 cms segement of possible Farris's - biopsies obtained for histology and ARTIS STOMACH: Diffuse gastritis DUODENUM: Normal - biopsied to check for celiac sprue Colonoscopy Findings: One small polyp was removed Moderate to severe diverticulosis seen in the left and transerse colon Moderate hemorrhoids on retroflexed exam. Plan: Pt advised to schedule a FU appointment with Dr Stuart Repeat Colonoscopy in 5 years if biopsies are normal. A summary of above findings and relevant handouts were given to the patient. BIOPSIES SHOWED: A. Small bowel, biopsy: Small bowel mucosa with preserved villi and no specific change; no evidence of celiac disease. B. Gastric antrum, biopsy: Gastric antral mucosa with reactive changes, congestion and ectatic vessels, focal gland atrophy, intestinal metaplasia (complete) and minimal chronic inactive gastritis; negative for H.pylori and dysplasia. C. Gastric body, biopsy: Gastric body and antral mucosa with minimal chronic inactive gastritis; negative for H.pylori, intestinal metaplasia and dysplasia. D. Esophagus, distal, biopsy: Columnar mucosa with hyperplasia, mild inflammation, and intestinal metaplasia consistent with Farris's mucosa; no squamous mucosa present. E. Esophagus, proximal, biopsy: Gastric-type mucosa with mild chronic inflammation; negative for intestinal metaplasia and dysplasia; no squamous component present (? inlet patch; endoscopic correlation necessary). F. Colon, right, biopsy: Colonic mucosa with no specific change; no evidence of microscopic colitis. G. Colon, left, biopsy: Colonic mucosa with lymphoid aggregate, minor crypt distortion, and focal hyperplastic changes suggesting hyperplastic polyp (endoscopic correlation necessary); no evidence of microscopic colitis. H. Colon, sigmoid at 50 cm, biopsy: Fragment of colonic mucosa with no specific change and fragment of colonic mucosa with hyperplastic changes suggesting hyperplastic polyp (endoscopic correlation necessary) I. Colon, rectal polyp, biopsy: Hyperplastic polyp. Letter sent to the patient with biopsy results. Patient placed on the procedure recall list for repeat EGD in 1 year and repeat colonoscopy in 5 years.
[2024-09-13 11:29] VITALS: BP 111/50; PULSE 73; RESP 16; TEMP 36.2; O2SAT 97
[2024-09-13 11:40] VITALS: BP 122/65; PULSE 60; RESP 16; O2SAT 98
[2024-09-13 11:50] VITALS: BP 126/62; PULSE 61; RESP 18; TEMP 36.1; O2SAT 98
== END 2024-09-13 12:24 | disposition home or self-care (01) ==
PROVIDERS: PCP Internal Medicine; Visit Provider Internal Medicine Gastroenterology
PROC: (CPT 45380; principal; 2024-09-13 10:10)
DX: K52.9 Noninfective gastroenteritis and colitis, unspecified (principal); Z80.0 Family history of malignant neoplasm of digestive organs; K62.1 Rectal polyp; K57.30 Diverticulosis of large intestine without perforation or abscess without bleeding; K64.8 Other hemorrhoids; K21.9 Gastro-esophageal reflux disease without esophagitis; Q45.3 Other congenital malformations of pancreas and pancreatic duct; K29.50 Unspecified chronic gastritis without bleeding; K22.70 Barrett's esophagus without dysplasia; K44.9 Diaphragmatic hernia without obstruction or gangrene; K76.0 Fatty (change of) liver, not elsewhere classified; I10 Essential (primary) hypertension; E78.00 Pure hypercholesterolemia, unspecified; E55.9 Vitamin D deficiency, unspecified; R79.89 Other specified abnormal findings of blood chemistry; J45.909 Unspecified asthma, uncomplicated; G47.33 Obstructive sleep apnea (adult) (pediatric); G47.10 Hypersomnia, unspecified; M10.9 Gout, unspecified; E66.9 Obesity, unspecified; Z68.38 Body mass index [BMI] 38.0-38.9, adult; F10.10 Alcohol abuse, uncomplicated; Z88.8 Allergy status to other drugs, medicaments and biological substances; Z98.890 Other specified postprocedural states; F17.210 Nicotine dependence, cigarettes, uncomplicated
CPT/HCPCS: 45380; 43239; 88305; 88307; 88313; 88342; J2003; J2250; J2704

== ENCOUNTER → 2024-09-13 08:34 | Outpatient (BNV) | payer OTHER, SELFPAY | PROVIDERS: PCP Internal Medicine; Visit Provider Internal Medicine Gastroenterology | DX: K52.9 Noninfective gastroenteritis and colitis, unspecified (principal); D12.8 Benign neoplasm of rectum; K57.90 Diverticulosis of intestine, part unspecified, without perforation or abscess without bleeding; K64.8 Other hemorrhoids; K21.9 Gastro-esophageal reflux disease without esophagitis; K22.89 Other specified disease of esophagus; K29.70 Gastritis, unspecified, without bleeding | CPT/HCPCS: 43239; 45380 ==

== ENCOUNTER 2024-09-21 11:42 | Outpatient (AMB) | payer OTHER, SELFPAY ==
[2024-09-21 11:44] VITALS: BP 146/88; PULSE 65; TEMP 36.6; O2SAT 97; BMI 36.6
--- NOTE | 2024-09-21 11:44 | A.OFFPC_ITS ---
Vital Signs 09/21/24 11:44 Height 5 ft 8 in Weight 241 lb BMI 36.6 BP 146/88 H Blood Pressure Location Lt brachial Position Sitting Pulse 65 Pulse Source Pulse Oximeter Temp 97.8 F Temp Source Temporal Artery Scan Pulse Oximetry (%) 97 Oxygen Delivery Method Room Air Intake Visit Reasons: 4 weeks Risk Analyst Required: No Accompanied by: Self / Same As Patient Allergies metronidazole [From FLAGYL] Allergy (Severe, Verified 09/21/24 11:48) SWELLING THROAT Medication List - Last Reconciled 09/21/24 by Ashwin Menendez MD albuterol sulfate 90 mcg/actuation 2 puffs PO Q6H PRN fluticasone propionate 110 mcg/actuation (Flovent HFA) 2 puffs PO BID fluticasone propionate 50 mcg/actuation (Flonase Allergy Relief) 1 spray intranasal BID lisinopril 5 mg PO DAILY montelukast (Singulair) 10 mg PO BEDTIME 90 days omeprazole 20 mg PO DAILY 90 days tirzepatide (weight loss) (Zepbound) 2.5 mg (0.5 mL) subcut QWEEK Tobacco use date assessed: 09/21/24 Dental Screening Dental Screen Date: 09/21/24 Did you have a dental visit in the last 12 months?: Yes Did you have a dental problem in the last 6 months where you did not have access to dental care?: No Was dental information given to patient?: Patient has dentist HPI 4 weeks HPI0 Details 44-year-old obese male with smoker with hypercholesterolemia GERD impaired glucose tolerance hypertension obstructive sleep apnea on the CPAP coming in for follow-up. Last seen last month and review of the notes had colonoscopy as well as EGD done 4 chronic diarrhea. 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 With the family history of colon cancer patient was advised to follow-up with: Testing in 5 years. Patient has been placed on phentermine and weight has not been decreasing and so change in medication plan done and was prescribed or is prescribed Zepbound right now with the patient sleep apnea as well as the obesity prescription sent. [facility] Medical History Smoker LLQ abdominal pain Puncture wound of skin from metal nail Injury of toe on left foot Umbilical hernia Left knee pain Headache Productive cough Right-sided chest wall pain Tooth pain Colitis Asthma Allergic rhinitis ELIZABETH (obstructive sleep apnea) Obesity (BMI 30-39.9) Hypersomnia Hypertension Fatty liver Vitamin D deficiency Gout Tobacco abuse GERD (gastroesophageal reflux disease) Hypercholesterolemia Obesity (BMI 30-39.9) Alcohol abuse Tear of biceps tendon Medial epicondylitis Surgical History History of surgery on arm History of left inguinal hernia repair (~2021) History of umbilical hernia repair (~2021) History of inguinal hernia repair Family History Father Hypertension Mother No problems noted. Brother No problems noted. Sister No problems noted. Paternal Uncle Colon cancer Paternal Aunt Colon cancer Social History Housing: House Are you a primary pharmacist critical care to a significant other at home: No Do you presently have visiting nurse or other home services: No Alcohol intake: current Alcohol intake frequency: holidays/special occasions only Comment: once a week 2 drinks Patient Tobacco Use Status: Current everyday Tobacco user Tobacco use type: Cigarette Cigarette Packs Per Day: 0.5 Cigarettes Per Day: 10.0 Years [facility] 5-6 cigarettes a day e-Cigarette/Vaping Use: Never Used Second Hand Smoke Exposure: No service: No Current occupational status: employed 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 - [employer]. Cognitive needs: No Hearing needs: No Vision needs: Yes (Glasses) Questionnaire PHQ-9 Over the last 2 weeks, how often have you been bothered by any of the following problems? 1. Little interest or pleasure in doing things: not at all 2. Feeling down, depressed, or hopeless: not at all 3. Trouble falling or staying asleep, or sleeping too much: several days 4. Feeling tired or having little energy: several days 5. Poor appetite or overeating: several days 6. Feeling bad about yourself - or that you are a failure or have let yourself or your family down: not at all 7. Trouble concentrating on things, such as reading the newspaper or watching television: not at all 8. Moving or speaking so slowly that other people could have noticed. Or the opposite - being so fidgety or restless that you have been moving around a lot more than usual: not at all 9. Thoughts that you would be better off or of hurting yourself in some way: not at all Total score: 3 Source: Developed by Drs. Anthony Alfredo, Melinda Mccracken, Master Benito and colleagues, with an educational vanesa from [employer]. Thrive Questionnaire Date Thrive assessed: 09/21/24 I am a: Patient What is your living situation today?: I have a steady place to live Within the past 12 months, did the food you bought not last and you didn't have the money to get more?: I choose not to answer this question Within the past 12 months, did you worry whether your food would run out before you got money to buy more?: I choose not to answer this question Do you have trouble paying for medicines?: No Do you have trouble getting transportation to medical appointments?: No Do you have trouble paying your heating and electricity bill?: I choose not to answer this question Do you have trouble taking care of your child, family member or friend?: I choose not to answer this question Do you have trouble with day-to-day activities such as bathing, preparing meals, shopping, managing finances, etc.?: I choose not to answer this question Are you currently unemployed and looking for a job?: No Are you interested in more education?: No Please select the resources that you would like help with: None Currently or been in a relationship where the following occur: I choose not to answer THRIVE Score: 0 AUDIT C Alcohol Use Questionnaire (AUDIT-C) 1. How often do you have a drink containing alcohol?: Monthly or less 2. How many drinks containing alcohol do you have on a typical day when you are drinking?: 1 or 2 3. How often do you have six or more drinks on one occasion?: Never Total Score: 1 MARLEN-7 AMB Questionnaire MARLEN-7 Date MARLEN - 7 assessed: 04/23/24 Feeling nervous, anxious, or on edge: 0 = Not at all Not being able to stop or control worryin = Not at all Worrying too much about different things: 0 = Not at all Trouble relaxin = Not at all Being so restless that it is hard to sit still: 0 = Not at all Becoming easily annoyed or irritable: 1 = Several days Feeling afraid as if something awful might happen: 0 = Not at all Total MARLEN-7 score (0-4 normal; 5-9 mild; 10-14 moderate; 15-21 severe): 1 Source: Developed by Drs. Anthony Alfredo, Melinda Mccracken, Master Benito and colleagues, with an educational vanesa from [employer]. Physical exam (Primary Care) Vital Signs: Last Vital Signs Temp 97.8 F 09/21/24 11:44 Pulse 65 09/21/24 11:44 BP 146/88 H 09/21/24 11:44 Pulse Ox 97 09/21/24 11:44 Oxygen Delivery Method Room Air 09/21/24 11:44 BMI result Body Mass Index 36.6 Tobacco/Smoking Status: Tobacco use Status Tobacco use date assessed 09/21/24 09/21/24 11:45 Patient Tobacco Use Status Current everyday Tobacco 09/21/24 11:45 Tobacco use type Cigarette 09/21/24 11:45 e-Cigarette/Vaping Use Never Used 09/21/24 11:45 PHQ-9: PHQ-9 Score PHQ-9: Total score 3 09/21/24 12:10 Thrive Assessment: Date of Thrive Assessment Date Thrive assessed 09/21/24 09/21/24 11:45 Currently or been in a relationship where the following occur: I choose not to answer Const General: alert; No acute distress Eyes Conjunctivae: conjunctivae normal Resp Auscultation: clear to auscultation bilaterally Cardio Rate: regular rate Rhythm: regular rhythm GI Inspection: Yes normal to inspection Extrem General: Yes normal to inspection and No edema Coding Level of Care Code Est Pt Level 4 (30392) Complex EM visit Add On G2211 Diagnoses Obesity (BMI 30-39.9) E66.9 Impaired fasting blood sugar R73.01 Tobacco abuse Z72.0 Hypercholesterolemia E78.00 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 Code(s): E66.9 - Obesity, unspecified Category: Medical Plan: Diet and exercise (2) Impaired fasting blood sugar: Code(s): R73.01 - Impaired fasting glucose Category: Medical Plan: Decrease the amount of carbohydrate intake, pasta, bread, rice and potatoes are all sugar and that is aside from all the sweet stuff, remember that fruits are good but they are Sweet also. (3) Tobacco abuse: Code(s): Z72.0 - Tobacco use Category: Medical Plan: Patient is advised to stop smoking! (4) Hypercholesterolemia: Code(s): E78.00 - Pure hypercholesterolemia, unspecified Category: Medical Plan: Avoid fried foods, chicken skin, eggs, butter margarine, pastries and meat. Be it pork or beef they have a lot of cholesterol LDL goal of less than 130 and triglyceride of less than 150. 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 After eating do not lie down, allow 3-4 hours before in lie down. And keep the head of bed above 30 degrees to avoid the acid from going up. (6) Hypertension: Code(s): I10 - Essential (primary) hypertension Category: Medical Qualifiers: Hypertension type: essential hypertension Qualified Code(s): I10 - Essential (primary) hypertension (7) ELIZABETH (obstructive sleep apnea): Comment: Known case of obstructive sleep apnea secondary to gross obesity and nasal congestion. He does use CPAP at night, and compliance has somewhat improved from before. Denies any issues with the mask or CPAP device Code(s): G47.33 - Obstructive sleep apnea (adult) (pediatric) Category: Medical (8) Peripheral vascular disease: Code(s): I73.9 - Peripheral vascular disease, unspecified Category: Medical Plan History of Present Illness The patient is a 44-year-old male presenting with concerns about weight management and a review of his medications. He has been on phentermine, which has not resulted in significant weight reduction. The patient's weight varies between 240 to 250 pounds, with a noted drop to 240 pounds recently. He attributes some of the challenges in weight management to a lack of exercise. During a recent colonoscopy, a polyp was successfully removed from the colon. Additionally, the presence of an upper gastrointestinal polyp requires ongoing monitoring. His blood pressure, typically stable, showed recent elevation possibly due to coffee intake. He reported use of a CPAP device for documented sleep apnea, alongside elevated cholesterol levels showing minor improvement. Peripheral edema is notably present on the left ankle, especially during prolonged standing or heat exposure. Health Maintenance - Obstructive sleep apnea managed with CPAP - Monitoring and management of hypercholesterolemia - Continuous blood pressure monitoring for hypertension - Discussion of conservative management for lower extremity edema, including leg elevation and compression stockings. - Strategies and plans for weight management, discussed scope for injection therapy with insurance considerations Social History - Reports current lack of exercise contributing to weight management difficulties - Patient acknowledged consumption of coffee, potentially impacting blood pressure - Decreased alcohol consumption as part of lifestyle modifications - Denied recent exercise activity and reports working while standing for long periods Review of Systems - Cardiovascular: Denies palpitations - Gastrointestinal: Reports recent polyp removal from colon - Metabolic: Concerns with cholesterol levels and obesity - Respiratory: Reports management of sleep apnea with CPAP - Musculoskeletal: Reports left-sided ankle swelling Physical Exam Results - Colonic and upper gastrointestinal polyp removal noted - Effective management of obstructive sleep apnea with CPAP indicated Plan Switch to injectable weight management therapy is being explored, dependent on insurance approval. Meanwhile, the patient will continue lifestyle adjustments and monitor sleep apnea management with CPAP. Dietary modifications are advised to manage hypercholesterolemia and blood pressure. The patient should use leg elevation and compression stockings for peripheral edema. Regular monitoring and follow-ups are suggested to align with colonic and gastric polyp management. Patient was informed and verbally consented to the use of an ambient scribe for clinic note documentation during this visit. Discussion Notes I discussed transitioning from phentermine to injection-based therapy for weight management, emphasizing the benefits and potential for fewer cardiac side effects. While verifying insurance support for injections, I encouraged ongoing lifestyle changes. The objectives are to control sleep apnea effectively with CPAP and manage blood pressure. Detailed discussions regarding venous insufficiency management due to ankle edema were held, emphasizing non-surgical interventions. Return follow-up in three months is appropriate to reevaluate weight management progress and address any arising concerns about upper GI polyps or other interrelated health issues. Patient Instructions - Continue current CPAP usage for sleep apnea management - Adopt dietary changes to reduce cholesterol levels - Minimize caffeine intake to help control blood pressure - Elevate legs and consider compression stockings to alleviate ankle swelling - Follow up in three months to reassess progress on weight management and overall health - Report any sudden increase in swelling, unexplained weight fluctuations, or breathing difficulties immediately Medications: New tirzepatide (weight loss) (Zepbound) for 4 weeks 2.5 mg (0.5 mL) subcut QWEEK 2 mL 0RF E66.9 - Obesity, unspecified, G47.33 - Obstructive sleep apnea (adult) (pediatric), I10 - Essential (primary) hypertension Discontinued phentermine must administer 30 minutes before or 1-2 hours after breakfast Discontinued Reason: Doctor's Order 37.5 mg PO DAILY 30 caps 0RF E66.9 - Obesity, unspecified
--- OUTSIDE RECORDS SUMMARY | 2024-09-21 14:02 | XMS_ITS | Clinical Summary ---
Author Organization [facility] Address [address] [place] [address] Care Team Providers Care Painter Mirror Name Role Phone Unavailable Primary Care Provider [...] (1 - 1-dose 75+ series) [id number] Insurance [employer]
== END 2024-09-21 12:19 | disposition home or self-care (01) ==
LOC: HO.HMCH 11:43
PROVIDERS: PCP Internal Medicine; Visit Provider Internal Medicine
DX: R73.01 Impaired fasting glucose (principal); E66.9 Obesity, unspecified; Z68.36 Body mass index [BMI] 36.0-36.9, adult; Z72.0 Tobacco use; E78.00 Pure hypercholesterolemia, unspecified; K22.70 Barrett's esophagus without dysplasia; I10 Essential (primary) hypertension; G47.33 Obstructive sleep apnea (adult) (pediatric); I73.9 Peripheral vascular disease, unspecified

== ENCOUNTER → 2024-09-21 11:42 | Outpatient (BNVA) | payer OTHER, SELFPAY | PROVIDERS: PCP Internal Medicine; Visit Provider Internal Medicine | DX: E66.9 Obesity, unspecified (principal); Z68.36 Body mass index [BMI] 36.0-36.9, adult; R73.01 Impaired fasting glucose; E78.00 Pure hypercholesterolemia, unspecified; K22.70 Barrett's esophagus without dysplasia; I10 Essential (primary) hypertension; G47.33 Obstructive sleep apnea (adult) (pediatric); I73.9 Peripheral vascular disease, unspecified; Z72.0 Tobacco use; Z99.89 Dependence on other enabling machines and devices | CPT/HCPCS: 99212 ==

== ENCOUNTER 2024-10-19 09:09 | Outpatient (AMB) | payer OTHER, SELFPAY ==
--- NOTE | 2024-10-19 09:09 | A.OFFVIS_ITS ---
Intake Visit Reasons: egd colo saravanan Intake Note: Da presents as a telehealth today to go over results to his EGD and COLO. CC: States that he is not having any concerns since procedures! Community Engagement Representative Required: No Allergies metronidazole (From FLAGYL) Allergy (Severe, Verified 02/21/25 10:44) SWELLING THROAT HPI Comments Details: 43 y.o M with PMH of obesity, ELIZABETH, gerd, fatty liver, tobacco use, [place] [facility] [place]. Reports almost 4 months ago started having loose stools 2-3 times a day without blood. No abd pain with the bowels. No nausea or vomiting. No new meds. No unintentional weight loss. Of note - pt previously has been worked up for abnl appearance of pancreas: PANCREAS: The head and uncinate process of the pancreas are prominent measuring up to 4.3 cm in AP dimension, upper normal 3 cm. The pancreas is normal in signal and demonstrates normal enhancement. No focal lesion. The main pancreatic duct does not appear dilated. Fam hx of CRC - second degree relatives. Pat aunt had CRC at age 70s, pat uncle age CRC in 50s. Smokes 0.5 PPD. Drinks 3-6 drinks/weekend. EGD/colo 09/13/24: ESOPHAGUS: Mildly tortuous esophagus without stricture or ring. Hiatal hernia, inlet patch and a 2 cms segement of possible Farris's - biopsies obtained for histology and ARTIS STOMACH: Diffuse gastritis DUODENUM: Normal - biopsied to check for celiac sprue Colonoscopy Findings: One small polyp was removed Moderate to severe diverticulosis seen in the left and transerse colon Moderate hemorrhoids on retroflexed exam. Path: A. Small bowel, biopsy: Small bowel mucosa with preserved villi and no specific change; no evidence of celiac disease. B. Gastric antrum, biopsy: Gastric antral mucosa with reactive changes, congestion and ectatic vessels, focal gland atrophy, intestinal metaplasia (complete) and minimal chronic inactive gastritis; negative for H.pylori and dysplasia. C. Gastric body, biopsy: Gastric body and antral mucosa with minimal chronic inactive gastritis; negative for H.pylori, intestinal metaplasia and dysplasia. D. Esophagus, distal, biopsy: Columnar mucosa with hyperplasia, mild inflammation, and intestinal metaplasia consistent with Farris's mucosa; no squamous mucosa present. E. Esophagus, proximal, biopsy: Gastric-type mucosa with mild chronic inflammation; negative for intestinal metaplasia and dysplasia; no squamous component present (? inlet patch; endoscopic correlation necessary). F. Colon, right, biopsy: Colonic mucosa with no specific change; no evidence of microscopic colitis. G. Colon, left, biopsy: Colonic mucosa with lymphoid aggregate, minor crypt distortion, and focal hyperplastic changes suggesting hyperplastic polyp (en doscopic correlation necessary); no evidence of microscopic colitis. H. Colon, sigmoid at 50 cm, biopsy: Fragment of colonic mucosa with no specific change and fragment of colonic mucosa with hyperplastic changes suggesting hyperplastic polyp (endoscopic correlation necessary) I. Colon, rectal polyp, biopsy: Hyperplastic polyp 10/19/24: Here for telehealth visit. EGD/colo findings reviewed. Pt reports no acute GI issues at this time. Reviewed that has antral GIM complete type which is typically low risk for progression to NET or gastric adeno. No routine surveillance recommended. In terms of BE, this is short segment. Would recommend repeat EGD in 5 years. Next colo recommended in 5 years due to fam hx. PFSH Medical History Smoker LLQ abdominal pain Puncture wound of skin from metal nail Injury of toe on left foot Umbilical hernia Left knee pain Headache Productive cough Right-sided chest wall pain Tooth pain Colitis Asthma Allergic rhinitis ELIZABETH (obstructive sleep apnea) Obesity (BMI 30-39.9) Hypersomnia Hypertension Fatty liver Vitamin D deficiency Gout Tobacco abuse GERD (gastroesophageal reflux disease) Hypercholesterolemia Obesity (BMI 30-39.9) Alcohol abuse Tear of biceps tendon Medial epicondylitis Surgical History Hx of colonoscopy History of esophagogastroduodenoscopy (EGD) History of surgery on arm History of left inguinal hernia repair (~2021) History of umbilical hernia repair (~2021) History of inguinal hernia repair Family History Father Hypertension Mother No problems noted. Brother No problems noted. Sister No problems noted. Paternal Uncle Colon cancer Paternal Aunt Colon cancer Social History Housing: House Are you a primary day care worker to a significant other at home: No Do you presently have visiting nurse or other home services: No Alcohol intake: current Alcohol intake frequency: a few times a week Comment: once a week 2 drinks Patient Tobacco Use Status: Current everyday Tobacco user Tobacco use type: Cigarette Cigarette Packs Per Day: 0.5 Cigarettes Per Day: 10.0 Years Smoked: [facility] 04/2024 5-6 cigarettes a day e-Cigarette/Vaping Use: Never Used Second Hand Smoke Exposure: No service: No Current occupational status: employed 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 - [employer]. Cognitive needs: No Hearing needs: No Vision needs: Yes (Glasses) Review of Systems Const All systems reviewed & are unremarkable except as noted in HPI and below Physical Exam Vital Signs: phone visit Telehealth Telehealth Telehealth Platform: Telephone Location of provider rendering services: practice address Location of patient: address on file Patient Identification confirmed using: Name, : Yes Telehealth method: voice only Patient verbally consented to treatment: Yes Patient verbally consented to billing insurance company: Yes Patient informed of any privacy concerns related to visit: Yes Minutes spent on Phone/Video with Pt.: 7 Assessment & Plan Assessment & Plan (1) Chronic diarrhea: Code(s): K52.9 - Noninfective gastroenteritis and colitis, unspecified Category: Medical (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 Chronic diarrhea Self resolved. EGD/colo with findings as above. Next colo due 2029. 2. BE Has SSBE on EGD done last month. No dysplasia. Next EGD due 2029 - can book alongside colo, see above. 3. Elevated LFts Likely has fatty liver 2/2 metabolic risk factors Reviewed 10% TBW in 6 months At least 150 mins exercise/week Mgmt of HLD as per PCP. Pt not diabetic. 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
--- OUTSIDE RECORDS SUMMARY | 2024-10-19 09:30 | XMS_ITS | Clinical Summary ---
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
== END 2024-10-19 10:52 | disposition home or self-care (01) ==
LOC: HO.HGI 09:09
PROVIDERS: PCP Internal Medicine; Visit Provider Internal Medicine
DX: K52.9 Noninfective gastroenteritis and colitis, unspecified (principal); K22.70 Barrett's esophagus without dysplasia; R79.89 Other specified abnormal findings of blood chemistry
CPT/HCPCS: 99214

== ENCOUNTER 2024-11-15 07:40 | Outpatient (AMB) | payer OTHER, SELFPAY ==
--- NOTE | 2024-11-15 07:49 | AM.OFFWIN_ITS ---
Intake Vital Signs 11/15/24 07:53 Height 5 ft 8 in Weight 225 lb BMI 34.2 BP 120/70 Blood Pressure Location Rt brachial Position Sitting Pulse 75 Pulse Source Pulse Oximeter Temp 98.4 F Temp Source Oral Pulse Oximetry (%) 98 Oxygen Delivery Method Room Air Intake Visit Reasons: EP-stomach pain, tiredness, body weakness,cough Intake Note: presents with fatigue, stomach pain with deep inhalation, diarrhea, mild sore throat, dizziness, productive cough with clear phlegm for 3 days. pt reportsh/o colitis Patient Tobacco Use Status: Current everyday Tobacco user Allergies metronidazole (From [employer]) Allergy (Severe, Verified 09/21/24 11:48) SWELLING THROAT HPI HPI Comments History of Present Illness Details History - The patient is a 44-year-old male pres enting with dizziness, lightheadedness, and body aches. - The patient reports dizziness, lighthe adedness, and body aches starting after attending an event on Friday. - Additional symptoms include sharp stom ach pains, cold sweats, and a productive cough with clear mucus. - He had a fever of 100?F yesterday, wit h ear pain and a sore throat, abdominal pains and cough. - The patient has been using NyQuil for symptom relief and is consuming orange juice but not eating much. - He smokes but has reduced smoking due to illness and reports feeling very tired. - He has been eating and drinking a devin le. - He denies CP, SOB, nausea or vomiting. Physical Exam General: Cooperative, healthy appearing, comfortable and no acute distress Orientation/consciousness: Patient oriented x3 Limitations: No limitations Head: Normal to inspection Ears: Hearing grossly normal bilaterally, external ears normal. Erythema and redness to the left TM. No discharge or drainage. Nose: Normal external nose present, normal nares present, and no nasal discharge present. Face and sinus: Sinuses nontender to palpation. Mouth: Normal oral and palatal mucosa present and moist mucous membranes noted. Throat: Tonsils normal. Uvula is midline. Posterior oropharynx with erythema and no exudates. Sore throat present. Eyes: Appearance normal, both eyes and all related structures Neck: Normal visual inspection, full ROM. No lymphadenopathy noted. Respiratory: Clear to auscultation bilaterally. Normal respiratory effort, able to speak in complete sentences. No respiratory distress, not tachypneic, no tripod positioning and no use of accessory muscles. Cardiovascular: Regular rate and rhythm. Normal S1 and S2 Skin: No rashes or lesions noted Patient was informed and verbally consented to the use of an ambient scribe for clinic note documentation during this visit [facility] Medical History Smoker LLQ abdominal pain Puncture wound of skin from metal nail Injury of toe on left foot Umbilical hernia Left knee pain Headache Productive cough Right-sided chest wall pain Tooth pain Colitis Asthma Allergic rhinitis ELIZABETH (obstructive sleep apnea) Obesity (BMI 30-39.9) Hypersomnia Hypertension Fatty liver Vitamin D deficiency Gout Tobacco abuse GERD (gastroesophageal reflux disease) Hypercholesterolemia Obesity (BMI 30-39.9) Alcohol abuse Tear of biceps tendon Medial epicondylitis Surgical History Hx of colonoscopy History of esophagogastroduodenoscopy (EGD) History of surgery on arm History of left inguinal hernia repair (~2021) History of umbilical hernia repair (~2021) History of inguinal hernia repair Family History Father Hypertension Mother No problems noted. Brother No problems noted. Sister No problems noted. Paternal Uncle Colon cancer Paternal Aunt Colon cancer Social History Housing: House Are you a primary medical care manager to a significant other at home: No Do you presently have visiting nurse or other home services: No Alcohol intake: current Alcohol intake frequency: holidays/special occasions only Comment: once a week 2 drinks Patient Tobacco Use Status: Current everyday Tobacco user Tobacco use type: Cigarette Cigarette Packs Per Day: 0.5 Cigarettes Per Day: 10.0 Years Smoked: states 04/2024 5-6 cigarettes a day e-Cigarette/Vaping Use: Never Used Second Hand Smoke Exposure: No service: No Current occupational status: employed 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 - [employer]. Cognitive needs: No Hearing needs: No Vision needs: Yes (Glasses) Review of Systems Const All systems reviewed & are unremarkable except as noted in HPI and below Physical Exam Vital Signs: Last Vital Signs Temp 98.4 F 11/15/24 07:53 Pulse 75 11/15/24 07:53 BP 120/70 11/15/24 07:53 Pulse Ox 98 11/15/24 07:53 Oxygen Delivery Method Room Air 11/15/24 07:53 BMI result Body Mass Index 34.2 Assessment & Plan Assessment & Plan (1) Otitis media: Code(s): H66.90 - Otitis media, unspecified, unspecified ear Qualifiers: Otitis media type: suppurative Chronicity: acute Laterality: left Recurrence: non-recurrent Spontaneous tympanic membrane rupture: without spontaneous rupture Qualified Code(s): H66.002 - Acute suppurative otitis media without spontaneous rupture of ear drum, left ear (2) Cough: Code(s): R05.9 - Cough, unspecified Qualifiers: Cough type: acute Qualified Code(s): R05.1 - Acute cough Plan Most likely URI vs covid vs flu Also has an OM rapid strep negative Plan- - will order covid/flu/rsv swab - Start Augmentin for seven days for acute otitis media. - Use Tylenol or Motrin for body aches and fever. - Prescribe medication for cough relief. - Recommend rest and hydration, with a work absence note until the , allowing earlier return if symptoms improve. - VSS, pt well appearing - Diet as tolerated - tylenol or motrin as needed - follow up with PCP Medications: New amoxicillin-pot clavulanate 875-125 mg 1 tab PO Q12H 14 tabs 0RF benzonatate 100 mg PO bid-tid PRN 21 caps 0RF Cough 7 days Coding Level of Care Code Est Pt Level 4 (14862) Diagnoses Non-recurrent acute suppurative otitis media of left ear without spontaneous rupture of tympanic membrane H66.002 Otitis media type: suppurative Chronicity: acute Laterality: left Recurrence: non-recurrent Spontaneous tympanic membrane rupture: without spontaneous rupture Acute cough R05.1 Cough type: acute
[2024-11-15 07:53] VITALS: BP 120/70; PULSE 75; TEMP 36.9; O2SAT 98; BMI 34.2
== END 2024-11-15 08:34 | disposition home or self-care (01) ==
PROVIDERS: PCP Internal Medicine; Visit Provider Physician Assistant Medical
DX: H66.002 Acute suppurative otitis media without spontaneous rupture of ear drum, left ear (principal); R05.1 Acute cough; Z13.9 Encounter for screening, unspecified

== ENCOUNTER 2024-11-15 07:40 | Outpatient (REF) | payer OTHER, SELFPAY ==
--- OUTSIDE RECORDS SUMMARY | 2024-11-15 12:26 | XMS_ITS | Clinical Summary ---
Author Organization [facility] Address [address] [place] [address] Care Team Providers Care Food Dehydrator Operator Name Role Phone Unavailable Primary Care Provider [...] (1 - 1-dose 75+ series) 2056 Insurance [facility]
[2024-11-15 14:40] LABS: Resp Syncy Virus RNA Qual PCR NEGATIVE (Negative); SARS COV2 PCR INHOUSE NEGATIVE (Negative)
== END 2024-11-15 07:41 | disposition home or self-care (01) ==
LOC: HO.LNP 07:40
PROVIDERS: PCP Internal Medicine; Visit Provider Physician Assistant Medical
DX: H66.002 Acute suppurative otitis media without spontaneous rupture of ear drum, left ear (principal); R05.1 Acute cough; R09.89 Other specified symptoms and signs involving the circulatory and respiratory systems; Z11.2 Encounter for screening for other bacterial diseases
CPT/HCPCS: 87637; 87880; 99212

== ENCOUNTER 2024-11-23 14:23 | Outpatient (AMB) | payer OTHER, SELFPAY ==
[2024-11-23 14:29] VITALS: BP 132/80; PULSE 78; TEMP 38.7; O2SAT 98; BMI 34.4
--- NOTE | 2024-11-23 14:29 | MHC.OFFWIV ---
Intake Vital Signs 11/23/24 14:29 Height 5 ft 8 in Weight 226 lb 2 oz BMI 34.4 BP 132/80 Blood Pressure Location Lt brachial Position Sitting Pulse 78 Pulse Source Pulse Oximeter Temp 101.6 F H Temp Source Oral Pulse Oximetry (%) 98 Oxygen Delivery Method Room Air Intake Visit Reasons: EP-stomach pain, dizziness, body weakness Patient Tobacco Use Status: Current everyday Tobacco user [employer] Required: No Allergies metronidazole (From [employer]) Allergy (Severe, Verified 09/21/24 11:48) SWELLING THROAT Do you need a note to return to daycare/school/sports/work: Yes HPI HPI Comments History of Present Illness Details History of Present Illness - The patient is a 44-year-old male presenting with fever, dizziness, abdominal pain, headache, cough, and ear pain. - The patient reports a fever of 101?F, which started today. He did not feel it before but noticed it last night. - The patient experiences significant dizziness, which was particularly noticeable at work yesterday. - The patient describes some abdominal pain on the left side, possibly related to constipation but he has not eaten much. - He has been experiencing this since before taking Zepbound on Friday. - The patient reports severe headaches, describing a sensation of his eyeballs and brain being on fire. - The patient has a cough had ear pain previously, but it is not currently present. He was treated with Augmentin at his last appt on 11/15. - He denies CP, SOB, diarrhea, melena, rashes, travel, or sick contacts. Physical Exam General: Cooperative, healthy appearing, comfortable, no acute distress and well developed Orientation: Patient oriented x3 Limitations: No limitations Head: Normal to inspection Ears: Hearing grossly normal bilaterally. Erythema in the canal bilaterally. TMs are normal. Nose: Normal external nose present Face and sinus: Normal facial exam Eyes: Appearance normal, both eyes and all related structures Neck: Normal visual inspection and Yes full ROM Respiratory: Normal respiratory effort and able to speak in complete sentences. Clear to auscultation bilaterally. No w/r/r noted. Cardiovascular: Regular rate and rhythm. Normal S1 and S2 GI: Normal to inspection. Soft to palpation and nontender. No guarding or rebound tenderness noted. No CVA tenderness noted. Skin: No rashes or lesions noted Neuro: Patient oriented x3. Extremities: Normal to inspection Patient was informed and verbally consented to the use of an ambient scribe for clinic note documentation during this visit. [facility] Medical History Smoker LLQ abdominal pain Puncture wound of skin from metal nail Injury of toe on left foot Umbilical hernia Left knee pain Headache Productive cough Right-sided chest wall pain Tooth pain Colitis Asthma Allergic rhinitis ELIZABETH (obstructive sleep apnea) Obesity (BMI 30-39.9) Hypersomnia Hypertension Fatty liver Vitamin D deficiency Gout Tobacco abuse GERD (gastroesophageal reflux disease) Hypercholesterolemia Obesity (BMI 30-39.9) Alcohol abuse Tear of biceps tendon Medial epicondylitis Surgical History Hx of colonoscopy History of esophagogastroduodenoscopy (EGD) History of surgery on arm History of left inguinal hernia repair (~2021) History of umbilical hernia repair (~2021) History of inguinal hernia repair Family History Father Hypertension Mother No problems noted. Brother No problems noted. Sister No problems noted. Paternal Uncle Colon cancer Paternal Aunt Colon cancer Social History Housing: House Are you a primary day care assistant to a significant other at home: No Do you presently have visiting nurse or other home services: No Alcohol intake: current Alcohol intake frequency: holidays/special occasions only Comment: once a week 2 drinks Patient Tobacco Use Status: Current everyday Tobacco user Tobacco use type: Cigarette Cigarette Packs Per Day: 0.5 Cigarettes Per Day: 10.0 Years Smoked: [facility] 04/2024 5-6 cigarettes a day e-Cigarette/Vaping Use: Never Used Second Hand Smoke Exposure: No service: No Current occupational status: employed 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 - [employer]. Cognitive needs: No Hearing needs: No Vision needs: Yes (Glasses) Review of Systems Const All systems reviewed & are unremarkable except as noted in HPI and below Physical Exam Vital Signs: Last Vital Signs Temp 101.6 F H 11/23/24 14:29 Pulse 78 11/23/24 14:29 BP 132/80 11/23/24 14:29 Pulse Ox 98 11/23/24 14:29 Oxygen Delivery Method Room Air 11/23/24 14:29 BMI result Body Mass Index 34.4 Assessment & Plan Assessment & Plan (1) Cough: Code(s): R05.9 - Cough, unspecified Qualifiers: Cough type: acute Qualified Code(s): R05.1 - Acute cough (2) Fever: Code(s): R50.9 - Fever, unspecified Qualifiers: Fever type: unspecified Qualified Code(s): R50.9 - Fever, unspecified Plan Most likely viral illness vs covid vs flu vs RSV vs gastroenteritis CXR was negative Plan - tylenol or motrin as needed - rest and drink lots of fluids - diet as tolerated - will order covid/flu/rsv - will order CXR - will call him with the results - advised to go to the ER if he is no better Orders: Orders SARS-CoV2/FLU/RSV Today R09.89 - Other specified symptoms and signs involving the circulatory and respiratory systems XR chest 2V Today R05.9 - Cough, unspecified Coding Level of Care Code Est Pt Level 4 (60885) Diagnoses Acute cough R05.1 Cough type: acute Fever, unspecified fever cause R50.9 Fever type: unspecified
--- OUTSIDE RECORDS SUMMARY | 2024-11-23 15:17 | XMS_ITS | Clinical Summary ---
Author Organization [facility] Address [address] [place] [address] Care Team Providers Care Director Global Medical Affairs Name Role Phone Unavailable Primary Care Provider [...] (1 - 1-dose 75+ series) 2056 Insurance [facility]
== END 2024-11-23 15:57 | disposition home or self-care (01) ==
PROVIDERS: PCP Internal Medicine; Visit Provider Physician Assistant Medical
DX: R05.1 Acute cough (principal); R50.9 Fever, unspecified

== ENCOUNTER 2024-11-23 14:23 | Outpatient (REF) | payer OTHER, SELFPAY ==
--- NOTE | ~2024-11-23 | XR_ITS ---
EXAMINATION: XR CHEST 2 VIEWS HISTORY: R05.9 - Cough, unspecified COMPARISON: Comparison is made with the prior examination dated 03/12/2021. FINDINGS: PA and lateral views of the chest are submitted. The lungs are expanded and clear. There is no pleural effusion, pneumothorax, or pulmonary vascular congestion. The heart is normal in size. The bones are intact. XR/XR chest 2V IMPRESSION: No acute cardiopulmonary abnormality. Electronically signed by: Anthony Pérez MD 11/23/2024 03:42 PM EDT
[2024-11-24 11:16] LABS: Resp Syncy Virus RNA Qual PCR NEGATIVE (Negative); SARS COV2 PCR INHOUSE POSITIVE (Negative)
== END 2024-11-23 14:24 | disposition home or self-care (01) ==
LOC: HO.HMGCX 14:23
PROVIDERS: PCP Internal Medicine; Visit Provider Physician Assistant Medical
DX: R05.1 Acute cough (principal); R42 Dizziness and giddiness; R50.9 Fever, unspecified; R09.89 Other specified symptoms and signs involving the circulatory and respiratory systems; R10.9 Unspecified abdominal pain; R51.9 Headache, unspecified; F17.210 Nicotine dependence, cigarettes, uncomplicated
CPT/HCPCS: 71046; 87637; 99212

== ENCOUNTER → 2024-11-23 15:27 | Outpatient (BNV) | payer OTHER, SELFPAY | PROVIDERS: PCP Internal Medicine; Visit Provider Radiology Diagnostic Radiology | DX: R05.9 Cough, unspecified (principal) | CPT/HCPCS: 71046 ==

== ENCOUNTER 2024-12-06 10:39 | Outpatient (AMB) | payer OTHER, SELFPAY ==
[2024-12-06 10:41] VITALS: BP 143/72; PULSE 63; RESP 17; O2SAT 96
--- NOTE | 2024-12-06 10:41 | MHC.OFFVIS ---
Vital Signs 12/06/24 10:41 Weight 221 lb 9.033 oz BP 143/72 H Blood Pressure Location Lt brachial Position Sitting Respiration 17 Pulse 63 Pulse Source Pulse Oximeter Pulse Oximetry (%) 96 Oxygen Delivery Method Room Air Intake Visit Reasons: Obstructive sleep apnea Swimming Coach Or Instructor Required: No Allergies metronidazole (From FLAGYL) Allergy (Severe, Verified 12/06/24 10:49) SWELLING THROAT Medication List - Last Reconciled 12/06/24 by Barbi Watson MD albuterol sulfate 90 mcg/actuation 2 puffs PO Q6H PRN fluticasone propionate 110 mcg/actuation (Flovent HFA) 2 puffs PO BID fluticasone propionate 50 mcg/actuation (Flonase Allergy Relief) 1 spray intranasal BID lisinopril 5 mg PO DAILY montelukast (Singulair) 10 mg PO BEDTIME 90 days omeprazole 20 mg PO DAILY 90 days tirzepatide (weight loss) (Zepbound) 2.5 mg (0.5 mL) subcut QWEEK Do you need a note to return to daycare/school/sports/work: No HPI HPI Obstructive sleep apnea: Details: THIS 44 YEARS OLD GENTLEMAN IS HERE FOR 6 MONTHS FOLLOW-UP. HE SUFFERS FROM CHRONIC ALLERGIC RHINITIS, BRONCHIAL ASTHMA, AND OBSTRUCTIVE SLEEP APNEA. HE STATES THAT FAR ASTHMA IS CONCERNED IT IS CONTROLLED AND HE USES THE ALBUTEROL HFA ONLY RARELY BUT DOES USE FLOVENT-1102 PUFFS B.I.D.. DENIES ANY ACTIVE WHEEZING AND HE IS PHYSICALLY ACTIVE WITHOUT ANY SHORTNESS OF BREATH. HE IS USING CPAP MORE REGULARLY MISSED ABOUT 4 NIGHTS BECAUSE HE WAS AWAY. HE KEEPS IT ON FOR MORE THAN 4 HOURS BUT LESS THAN 5 HOURS. HE SAYS USES FULLFACE MASK AND THE TOP OF THE MASK CAUSING DISCOMFORT ON THE NOSE SO HE LIKES TO TRY F 40 FULLFACE MASK. WEIGHT SOTO NO FURTHER PROGRESS BUT INITIALLY HE DID LOSE ABOUT 25 LB. HE IS BACK ON TIRZEPATIDE INJECTIONS, AND IS HOPING THAT HE WOULD LOSE MORE WEIGHT. HE IS STILL SMOKING ABOUT 10 CIGARETTES A DAY [facility] Medical History Smoker LLQ abdominal pain Puncture wound of skin from metal nail Injury of toe on left foot Umbilical hernia Left knee pain Headache Productive cough Right-sided chest wall pain Tooth pain Colitis Asthma Allergic rhinitis ELIZABETH (obstructive sleep apnea) Obesity (BMI 30-39.9) Hypersomnia Hypertension Fatty liver Vitamin D deficiency Gout Tobacco abuse GERD (gastroesophageal reflux disease) Hypercholesterolemia Obesity (BMI 30-39.9) Alcohol abuse Tear of biceps tendon Medial epicondylitis Surgical History Hx of colonoscopy History of esophagogastroduodenoscopy (EGD) History of surgery on arm History of left inguinal hernia repair (~2021) History of umbilical hernia repair (~2021) History of inguinal hernia repair Family History Father Hypertension Mother No problems noted. Brother No problems noted. Sister No problems noted. Paternal Uncle Colon cancer Paternal Aunt Colon cancer Social History Housing: House Are you a primary dog daycare provider to a significant other at home: No Do you presently have visiting nurse or other home services: No Alcohol intake: current Alcohol intake frequency: a few times a week Comment: once a week 2 drinks Patient Tobacco Use Status: Current everyday Tobacco user Tobacco use type: Cigarette Cigarette Packs Per Day: 0.5 Cigarettes Per Day: 10.0 Years Smoked: [facility] 04/2024 5-6 cigarettes a day e-Cigarette/Vaping Use: Never Used Second Hand Smoke Exposure: No service: No Current occupational status: employed 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 - [employer]. Cognitive needs: No Hearing needs: No Vision needs: Yes (Glasses) Review of Systems Const All systems reviewed & are unremarkable except as noted in HPI and below Eyes Reports no additional complaints ENT Reports no additional complaints and Reports nasal congestion (Daily, and he feels that nose is blocked.) Card Denies chest pain, Denies irregular heart rhythm, Denies leg edema and Reports dyspnea on exertion (MILD) Resp Reports cough (Mild intermittent), Reports dyspnea on exertion (MILD) and Reports wheezing (Occasional) GI Reports no additional complaints Reports no additional complaints Musc Reports back pain and Reports arthralgias Skin/Breast Reports system reviewed and no additional complaints, except as documented Neuro Reports no additional complaints Psych Reports no additional complaints Aller/Immun Reports wheezing (Occasional) Physical Exam Vital Signs: Last Vital Signs Pulse 63 12/06/24 10:41 Resp 17 12/06/24 10:41 BP 143/72 H 12/06/24 10:41 Pulse Ox 96 12/06/24 10:41 Oxygen Delivery Method Room Air 12/06/24 10:41 Const General: healthy appearing, comfortable, no acute distress, alert and awake Orientation/consciousness: patient oriented x3 HEENT Head: Yes normal to inspection General nose exam: No nasal discharge present, Abnormal mucous membranes and turbinates present (Has chronic congestion of the nasal cavities with enlarged turbinates.), Nasal polyp present (Moderate-sized nasal polyp in left nostril) and Other nasal findings present (DOES HAVE MILD BILATERAL NASAL CONGESTION) Face and sinus: Yes sinuses nontender Mouth: oropharynx normal Throat: Yes posterior oropharynx normal Eyes General: appearance normal, both eyes and all related structures Neck Neck: Yes normal visual inspection, Yes no lymphadenopathy, Yes trachea midline and Yes no JVD Thyroid: Thyroid normal Chest Chest palpation & inspection: normal inspection of the chest, normal palpation of entire chest wall and no tenderness Resp Other: Percussion note resonant, good breath sounds on both sides, as a few scattered wheezes in the upper chest. No crepitations. Cardio Palpation: normal PMI Rate: regular rate Rhythm: regular rhythm Heart sounds: no gallops and no murmurs Peripheral pulses: Peripheral pulses 2+ throughout GI Palpation (GI): Soft to palpation, nontender, No hepatosplenomegaly present and no masses Auscultation: normal bowel sounds Back/Spine/Pelvis Thoracic/Lumbar Spine: thoracic and lumbar spine normal to inspection Skin General skin exam: no rashes or lesions noted Neuro General: patient oriented x3 and no focal motor deficits Cranial nerves: Yes CN's II-XII intact bilaterally Extrem General: Yes normal to inspection, Yes no clubbing, cyanosis or edema and Yes no calf tenderness Psych Appearance: grossly normal and well kempt Speech and movement: Normal speech and movement present Results Reviewed Results Reviewed: Compliance report for. the last 30 nights is reviewed He has used 25/30 nights, 83%. Average use it per night 4 hours 58 minutes. Pressure used mostly 12-13 cm. There is moderate degree of air leak, maximum 66 L/minute. Residual AHI 0.7 Assessment & Plan Assessment & Plan (1) Asthma: Comment: MILD TO MODERTAE , CONTROLLED WITH CURRENT REGIMEN. HAS HAD NO ACUTE FLARE UPS. Code(s): J45.909 - Unspecified asthma, uncomplicated Category: Medical Plan: Advised to continue using fluticasone propionate 110 2 puffs b.i.d. Albuterol HFA 2 puffs Q 4-6 hours p.r.n. (2) Allergic rhinitis: Comment: HAS CHRONIC RHINITIS, AND ENLARGED TURBINATES . IMPROVED WITH THE USE OF FOLONASE 2 SPRAYS IN EACH NOSTRIL DAILY. AND MONTELUKAST 10 MG DAILY . Code(s): J30.9 - Allergic rhinitis, unspecified Category: Medical Plan: Continue montelukast 10 mg once a day. Flonase-50 1 spray each nostril b.i.d.. Continue montelukast 10 mg daily (3) ELIZABETH (obstructive sleep apnea): Comment: Known case of obstructive sleep apnea secondary to gross obesity and nasal congestion. He does use CPAP at night, and compliance is fair. Complains of discomfort on the nose from the current full face mask . He will like to try a different fullface mask with soft lining. Code(s): G47.33 - Obstructive sleep apnea (adult) (pediatric) Category: Medical Plan: Will order F-40 fullface mask for him (4) Smoker: Comment: He is chronic smoker had cut down to a few cigarettes per day but now has increased back to 10 cigarettes a day. Code(s): F17.200 - Nicotine dependence, unspecified, uncomplicated Category: Social Hx Plan: Again counseled to stop smoking completely or at least cut down the number of cigarettes to less than 5 per day Coding Level of Care Code Est Pt Level 3 (62740) Diagnoses Asthma J45.909 Allergic rhinitis J30.9 ELIZABETH (obstructive sleep apnea) G47.33 Smoker F17.200
--- OUTSIDE RECORDS SUMMARY | 2024-12-06 11:52 | XMS_ITS | Clinical Summary ---
Author Organization [facility] Address [address] [place] [address] Care Team Providers Care Sales Representative [employer] Name Role Phone Unavailable Primary Care Provider [...] (1 - 1-dose 75+ series) 2056 Insurance [facility]
== END 2024-12-06 10:51 | disposition home or self-care (01) ==
LOC: HO.HPS 10:41
PROVIDERS: PCP Internal Medicine; Visit Provider Internal Medicine
DX: J45.909 Unspecified asthma, uncomplicated (principal); J30.9 Allergic rhinitis, unspecified; G47.33 Obstructive sleep apnea (adult) (pediatric); F17.200 Nicotine dependence, unspecified, uncomplicated
CPT/HCPCS: 99213

== ENCOUNTER → 2024-12-06 10:39 | Outpatient (BNVA) | payer OTHER, SELFPAY | PROVIDERS: PCP Internal Medicine; Visit Provider Internal Medicine | DX: G47.33 Obstructive sleep apnea (adult) (pediatric) (principal); F17.200 Nicotine dependence, unspecified, uncomplicated; J30.9 Allergic rhinitis, unspecified; E66.9 Obesity, unspecified; Z99.89 Dependence on other enabling machines and devices | CPT/HCPCS: 99212 ==

== ENCOUNTER 2025-01-12 11:17 | Outpatient (AMB) | payer OTHER, SELFPAY ==
[2025-01-12 11:21] VITALS: BP 140/72; PULSE 77; RESP 18; TEMP 36.2; O2SAT 98; BMI 33.4
--- NOTE | 2025-01-12 11:21 | A.OFFPC_ITS ---
Vital Signs 01/12/25 11:21 01/12/25 11:35 Height 5 ft 8 in Weight 220 lb BMI 33.4 BP 140/72 H 138/70 Blood Pressure Location Lt brachial Lt brachial Position Sitting Supine Respiration 18 Pulse 77 Pulse Source Pulse Oximeter Temp 97.1 F Temp Source Temporal Artery Scan Pulse Oximetry (%) 98 Oxygen Delivery Method Room Air Intake Visit Reasons: obesity Vp Transportation Required: No Accompanied by: Self / Same As Patient Allergies metronidazole (From FLAGYL) Allergy (Severe, Verified 01/12/25 11:21) SWELLING THROAT Medication List - Last Reconciled 01/12/25 by Ashwin Menendez MD albuterol sulfate 90 mcg/actuation 2 puffs PO Q6H PRN fluticasone propionate 50 mcg/actuation (Flonase Allergy Relief) 1 spray intranasal BID lisinopril 5 mg PO DAILY montelukast (Singulair) 10 mg PO BEDTIME 90 days omeprazole 20 mg PO DAILY 90 days phentermine 37.5 mg PO DAILY Tobacco use date assessed: 01/12/25 Dental Screening Dental Screen Date: 01/12/25 Did you have a dental visit in the last 12 months?: Yes Did you have a dental problem in the last 6 months where you did not have access to dental care?: No Was dental information given to patient?: Patient has dentist [facility] Medical History Smoker LLQ abdominal pain Puncture wound of skin from metal nail Injury of toe on left foot Umbilical hernia Left knee pain Headache Productive cough Right-sided chest wall pain Tooth pain Colitis Asthma Allergic rhinitis ELIZABETH (obstructive sleep apnea) Obesity (BMI 30-39.9) Hypersomnia Hypertension Fatty liver Vitamin D deficiency Gout Tobacco abuse GERD (gastroesophageal reflux disease) Hypercholesterolemia Obesity (BMI 30-39.9) Alcohol abuse Tear of biceps tendon Medial epicondylitis Surgical History Hx of colonoscopy History of esophagogastroduodenoscopy (EGD) History of surgery on arm History of left inguinal hernia repair (~2021) History of umbilical hernia repair (~2021) History of inguinal hernia repair Family History Father Hypertension Mother No problems noted. Brother No problems noted. Sister No problems noted. Paternal Uncle Colon cancer Paternal Aunt Colon cancer Social History Housing: House Are you a primary outdoor emergency care technician to a significant other at home: No Do you presently have visiting nurse or other home services: No Alcohol intake: current Alcohol intake frequency: a few times a week Comment: once a week 2 drinks Patient Tobacco Use Status: Current everyday Tobacco user Tobacco use type: Cigarette Cigarette Packs Per Day: 0.5 Cigarettes Per Day: 10.0 Years [facility] 5-6 cigarettes a day e-Cigarette/Vaping Use: Never Used Second Hand Smoke Exposure: No service: No Current occupational status: employed 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 - [employer]. Cognitive needs: No Hearing needs: No Vision needs: Yes (Glasses) Questionnaire Thrive Questionnaire Date Thrive assessed: 04/23/24 I am a: Patient What is your living situation today?: I have a steady place to live Within the past 12 months, did the food you bought not last and you didn't have the money to get more?: I choose not to answer this question Within the past 12 months, did you worry whether your food would run out before you got money to buy more?: I choose not to answer this question Do you have trouble paying for medicines?: No Do you have trouble getting transportation to medical appointments?: No Do you have trouble paying your heating and electricity bill?: I choose not to answer this question Do you have trouble taking care of your child, family member or friend?: I choose not to answer this question Do you have trouble with day-to-day activities such as bathing, preparing meals, shopping, managing finances, etc.?: I choose not to answer this question Are you currently unemployed and looking for a job?: No Are you interested in more education?: No Please select the resources that you would like help with: None Currently or been in a relationship where the following occur: I choose not to answer THRIVE Score: 0 MARLEN-7 AMB Questionnaire MARLEN-7 Date MARLEN - 7 assessed: 04/23/24 Source: Developed by Drs. Anthony Alfredo, Melinda BMaster Britt and colleagues, with an educational vanesa from [employer] Physical exam (Primary Care) Vital Signs: Last Vital Signs Temp 97.1 F 01/12/25 11:21 Pulse 77 01/12/25 11:21 Resp 18 01/12/25 11:21 BP 138/70 01/12/25 11:35 Pulse Ox 98 01/12/25 11:21 Oxygen Delivery Method Room Air 01/12/25 11:21 BMI result Body Mass Index 33.4 Tobacco/Smoking Status: Tobacco use Status Tobacco use date assessed 01/12/25 01/12/25 11:22 Patient Tobacco Use Status Current everyday Tobacco 01/12/25 11:22 Tobacco use type Cigarette 01/12/25 11:22 e-Cigarette/Vaping Use Never Used 01/12/25 11:22 Thrive Assessment: Date of Thrive Assessment Date Thrive assessed 04/23/24 01/12/25 11:22 Currently or been in a relationship where the following occur: I choose not to answer Const General: alert; No acute distress Eyes Conjunctivae: conjunctivae normal Resp Auscultation: clear to auscultation bilaterally Cardio Rate: regular rate Rhythm: regular rhythm GI Inspection: Yes normal to inspection Extrem General: Yes normal to inspection and No edema Coding Level of Care Code Est Pt Level 4 (76810) Diagnoses Obesity (BMI 30-39.9) E66.9 Impaired fasting blood sugar R73.01 Hypercholesterolemia E78.00 Essential hypertension I10 Hypertension type: essential hypertension 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 Patient has been placed on phentermine (2) Impaired fasting blood sugar: Code(s): R73.01 - Impaired fasting glucose Category: Medical Plan: Decrease the amount of carbohydrate intake, pasta, bread, rice and potatoes are all sugar and that is aside from all the sweet stuff, remember that fruits are good but they are Sweet also. (3) Hypercholesterolemia: Code(s): E78.00 - Pure hypercholesterolemia, unspecified Category: Medical Plan: Avoid fried foods, chicken skin, eggs, butter margarine, pastries and meat. Be it pork or beef they have a lot of cholesterol LDL goal of less than 130 and triglyceride of less than 150. (4) Hypertension: Code(s): I10 - Essential (primary) hypertension Category: Medical Qualifiers: Hypertension type: essential hypertension Qualified Code(s): I10 - Essential (primary) hypertension Plan: Continue with blood pressure medication. 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 After eating do not lie down, allow 3-4 hours before in lie down. And keep the head of bed above 30 degrees to avoid the acid from going up. (6) ELIZABETH (obstructive sleep apnea): Comment: Known case of obstructive sleep apnea secondary to gross obesity and nasal congestion. He does use CPAP at night, and compliance is fair. Complains of discomfort on the nose from the current full face mask . He will like to try a different fullface mask with soft lining. Code(s): G47.33 - Obstructive sleep apnea (adult) (pediatric) Category: Medical Plan: Advised to continue use the CPAP more than 4 hours a night and benefits from this. Patient follows up with Pulmonary (7) Asthma: Comment: MILD TO MODERTAE , CONTROLLED WITH CURRENT REGIMEN. HAS HAD NO ACUTE FLARE UPS. Code(s): J45.909 - Unspecified asthma, uncomplicated Category: Medical Plan: Stop smoking! Placed on Singulair continuing with albuterol inhaler (8) Tobacco abuse: Code(s): Z72.0 - Tobacco use Category: Medical Plan: Patient is strongly advised to stop smoking! Plan History of Present Illness The patient is a 44-year-old male presenting for a follow-up visit after being last seen in November 2024. The patient has a history of obesity and has recently lost 20 pounds, although he reports fluctuations in weight due to dietary habits. He has been using phentermine for weight management, but there have been issues with medication availability and insurance coverage. The patient has hypercholesterolemia, with triglycerides noted to be high at 292 mg/dL and LDL at 93 mg/dL as of July. He is on a cholesterol management plan with goals to reduce LDL to less than 130 mg/dL and triglycerides to less than 150 mg/dL. The patient is a smoker and has been strongly advised to quit smoking due to its impact on his health conditions, including obstructive sleep apnea and asthma. He was seen by pulmonary specialists in November for obstructive sleep apnea and asthma, and was prescribed montelukast and Flonase for management. The patient has a history of gastroesophageal reflux disease (GERD) and Farris's esophagus, with an EGD performed in September 2024. He is advised to continue using CPAP for more than 4 hours a night to manage his obstructive sleep apnea. The patient had a COVID-19 infection in the past and has been monitored for hepatic steatosis, with an ultrasound and MRI showing hepatomegaly and hepatic steatosis. His liver enzymes were noted to be elevated, prompting further imaging studies. Health Maintenance - Smoking cessation strongly advised - Weight management through diet and exercise encouraged - CPAP usage for obstructive sleep apnea recommended for more than 4 hours nightly - Regular follow-up with pulmonary specialists for asthma and obstructive sleep apnea - Cholesterol management with LDL goal of less than 130 mg/dL and triglycerides less than 150 mg/dL Social History - Smoking: Patient is a smoker and has been advised to quit. - Exercise: Patient is attempting to exercise more, although dietary habits fluctuate. Review of Systems - Cardiovascular: Denies palpitations. - Gastrointestinal: Reports no diarrhea, bowel movements are regular. Physical Exam - Cardiovascular: Regular rate and rhythm, no murmurs noted. - Respiratory: Regular breathing observed. Results - Labs: Blood sugar 116 mg/dL, Hemoglobin A1c 5.9% (July). - Imaging: Ultrasound and MRI showed hepatomegaly and hepatic steatosis. - Labs: Triglycerides 292 mg/dL, LDL 93 mg/dL (July). Plan Patient was informed and verbally consented to the use of an ambient scribe for clinic note documentation during this visit. 1. Obesity The patient has been managing obesity with phentermine and has achieved a 20- pound weight loss. There are issues with medication availability and insurance coverage, and the patient is advised to continue weight management through diet and exercise. 2. Hypercholesterolemia The patient is on a cholesterol management plan with goals to reduce LDL to less than 130 mg/dL and triglycerides to less than 150 mg/dL. Current triglycerides are 292 mg/dL and LDL is 93 mg/dL as of July. 3. Smoking The patient is a smoker and has been strongly advised to quit smoking due to its impact on his health conditions. 4. Gastroesophageal Reflux Disease (Gerd) The patient has a history of GERD and Farris's esophagus, with an EGD performed in September 2024. 5. Hypertension The patient is on lisinopril 5 mg once a day for hypertension management. 6. Impaired Glucose Tolerance The patient's blood sugar was 116 mg/dL with a hemoglobin A1c of 5.9% as of July. 7. Obstructive Sleep Apnea The patient is advised to continue using CPAP for more than 4 hours a night and follows up with pulmonary specialists. 8. Asthma The patient is on montelukast and Flonase for asthma management and has been advised to continue these medications. 9. Farris's Esophagus The patient has Farris's esophagus, with an EGD performed in September 2024. 10. Covid-19 Infection (Past) The patient had a COVID-19 infection in the past, which is currently resolved. 11. Hepatic Steatosis The patient has hepatic steatosis, with imaging showing hepatomegaly and hepatic steatosis. Liver enzymes were noted to be elevated, prompting further imaging studies. Discussion Notes During the visit, I discussed the importance of smoking cessation with the patient, emphasizing its impact on his overall health, particularly concerning his obstructive sleep apnea and asthma. We reviewed his current medication regimen, including the use of phentermine for weight management and the challenges with insurance coverage for Zepbound. I advised the patient to continue using CPAP for more than 4 hours nightly and to follow up with pulm onary specialists for his asthma and obstructive sleep apnea. Patient Instructions - Quit smoking to improve overall health and manage conditions like asthma and sleep apnea. - Continue using CPAP for more than 4 hours each night. - Follow up with pulmonary specialists for asthma and obstructive sleep apnea management. - Maintain a healthy diet and exercise regularly to support weight management. - Monitor cholesterol levels and adhere to the management plan to achieve target LDL and triglyceride levels. Medications: Changed From tirzepatide (weight loss) for 4 weeks 2.5 mg (0.5 mL) subcut QWEEK 2 mL 2RF E66.9 - Obesity, unspecified To tirzepatide (weight loss) for 4 weeks 5 mg (0.5 mL) subcut QWEEK 2.5 mL 2RF 30 days E66.9 - Obesity, unspecified Refilled phentermine must administer 30 minutes before or 1-2 hours after breakfast 37.5 mg PO DAILY 30 caps 0RF E66.9 - Obesity, unspecified
[2025-01-12 11:35] VITALS: BP 138/70
--- OUTSIDE RECORDS SUMMARY | 2025-01-12 12:55 | XMS_ITS | Clinical Summary ---
Author Organization [facility] Address [address] [place] [address] Care Team Providers Care Health Advisor Name Role Phone Unavailable Primary Care Provider [...] 2000 COVID-19 Vaccine ( - 2023- season) 2024 Influenza Vaccine (#1) 2024 01/24/2020 RSV Vaccine (SCDM) (1 - 1-dose 75+ series) 2056 Insurance [facility]
== END 2025-01-12 11:49 | disposition home or self-care (01) ==
LOC: HO.HMCH 11:18
PROVIDERS: PCP Internal Medicine; Visit Provider Internal Medicine
DX: R73.01 Impaired fasting glucose (principal); E66.9 Obesity, unspecified; Z68.33 Body mass index [BMI] 33.0-33.9, adult; E78.00 Pure hypercholesterolemia, unspecified; I10 Essential (primary) hypertension; K22.70 Barrett's esophagus without dysplasia; G47.33 Obstructive sleep apnea (adult) (pediatric); J45.909 Unspecified asthma, uncomplicated; Z72.0 Tobacco use

== ENCOUNTER → 2025-01-12 11:17 | Outpatient (BNVA) | payer OTHER, SELFPAY | PROVIDERS: PCP Internal Medicine; Visit Provider Internal Medicine | DX: I10 Essential (primary) hypertension (principal); E66.9 Obesity, unspecified; R73.01 Impaired fasting glucose; E78.00 Pure hypercholesterolemia, unspecified; K22.70 Barrett's esophagus without dysplasia; G47.33 Obstructive sleep apnea (adult) (pediatric); J45.909 Unspecified asthma, uncomplicated; F17.210 Nicotine dependence, cigarettes, uncomplicated; K21.9 Gastro-esophageal reflux disease without esophagitis; K76.0 Fatty (change of) liver, not elsewhere classified; Z68.33 Body mass index [BMI] 33.0-33.9, adult | CPT/HCPCS: 99212 ==

== ENCOUNTER 2025-02-09 14:32 | Outpatient (AMB) | payer OTHER, SELFPAY ==
--- NOTE | 2025-02-09 14:34 | MHC.PC.OV ---
Vital Signs 02/09/25 14:35 Height 5 ft 8 in Weight 221 lb BMI 33.6 BP 140/90 H Blood Pressure Location Lt brachial Position Sitting Pulse 85 Pulse Source Pulse Oximeter Temp 97.8 F Temp Source Temporal Artery Scan Pulse Oximetry (%) 95 Oxygen Delivery Method Room Air Intake Visit Reasons: 4 week f/u obesity Allergies metronidazole (From FLAGYL) Allergy (Severe, Verified 02/09/25 14:37) SWELLING THROAT Medication List - Last Reconciled 02/09/25 by Ashwin Menendez MD albuterol sulfate 90 mcg/actuation 2 puffs PO Q6H PRN fluticasone propionate 50 mcg/actuation (Flonase Allergy Relief) 1 spray intranasal BID lisinopril 5 mg PO DAILY montelukast (Singulair) 10 mg PO BEDTIME 90 days omeprazole 20 mg PO DAILY 90 days phentermine 37.5 mg PO DAILY tirzepatide (weight loss) 5 mg (0.5 mL) subcut QWEEK 30 days Tobacco use date assessed: 02/09/25 Dental Screening Dental Screen Date: 02/09/25 Did you have a dental visit in the last 12 months?: Yes Did you have a dental problem in the last 6 months where you did not have access to dental care?: No Was dental information given to patient?: Patient has dentist [facility] Medical History Smoker LLQ abdominal pain Puncture wound of skin from metal nail Injury of toe on left foot Umbilical hernia Left knee pain Headache Productive cough Right-sided chest wall pain Tooth pain Colitis Asthma Allergic rhinitis ELIZABETH (obstructive sleep apnea) Obesity (BMI 30-39.9) Hypersomnia Hypertension Fatty liver Vitamin D deficiency Gout Tobacco abuse GERD (gastroesophageal reflux disease) Hypercholesterolemia Obesity (BMI 30-39.9) Alcohol abuse Tear of biceps tendon Medial epicondylitis Surgical History Hx of colonoscopy History of esophagogastroduodenoscopy (EGD) History of surgery on arm History of left inguinal hernia repair (~2021) History of umbilical hernia repair (~2021) History of inguinal hernia repair Family History Father Hypertension Mother No problems noted. Brother No problems noted. Sister No problems noted. Paternal Uncle Colon cancer Paternal Aunt Colon cancer Social History Housing: House Are you a primary wound care technician to a significant other at home: No Do you presently have visiting nurse or other home services: No Alcohol intake: current Alcohol intake frequency: a few times a week Comment: once a week 2 drinks Patient Tobacco Use Status: Current everyday Tobacco user Tobacco use type: Cigarette Cigarette Packs Per Day: 0.5 Cigarettes Per Day: 10.0 Years Smoked: [facility] 04/2024 5-6 cigarettes a day e-Cigarette/Vaping Use: Never Used Second Hand Smoke Exposure: No service: No Current occupational status: employed 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 - [employer]. Cognitive needs: No Hearing needs: No Vision needs: Yes (Glasses) Questionnaire PHQ-9 Over the last 2 weeks, how often have you been bothered by any of the following problems? 1. Little interest or pleasure in doing things: not at all 2. Feeling down, depressed, or hopeless: not at all 3. Trouble falling or staying asleep, or sleeping too much: several days 4. Feeling tired or having little energy: several days 5. Poor appetite or overeating: several days 6. Feeling bad about yourself - or that you are a failure or have let yourself or your family down: not at all 7. Trouble concentrating on things, such as reading the newspaper or watching television: not at all 8. Moving or speaking so slowly that other people could have noticed. Or the opposite - being so fidgety or restless that you have been moving around a lot more than usual: not at all 9. Thoughts that you would be better off or of hurting yourself in some way: not at all Total score: 3 Source: Developed by Drs. Anthony Alfredo, Melinda Mccracken, Master Benito and colleagues, with an educational vanesa from [employer]. Thrive Questionnaire Date Thrive assessed: 04/23/24 I am a: Patient What is your living situation today?: I have a steady place to live Within the past 12 months, did the food you bought not last and you didn't have the money to get more?: I choose not to answer this question Within the past 12 months, did you worry whether your food would run out before you got money to buy more?: I choose not to answer this question Do you have trouble paying for medicines?: No Do you have trouble getting transportation to medical appointments?: No Do you have trouble paying your heating and electricity bill?: I choose not to answer this question Do you have trouble taking care of your child, family member or friend?: I choose not to answer this question Do you have trouble with day-to-day activities such as bathing, preparing meals, shopping, managing finances, etc.?: I choose not to answer this question Are you currently unemployed and looking for a job?: No Are you interested in more education?: No Please select the resources that you would like help with: None Currently or been in a relationship where the following occur: I choose not to answer THRIVE Score: 0 AUDIT C Alcohol Use Questionnaire (AUDIT-C) 1. How often do you have a drink containing alcohol?: Monthly or less 2. How many drinks containing alcohol do you have on a typical day when you are drinking?: 1 or 2 3. How often do you have six or more drinks on one occasion?: Never Total Score: 1 MARLEN-7 AMB Questionnaire MARLEN-7 Date MARLEN - 7 assessed: 04/23/24 Feeling nervous, anxious, or on edge: 0 = Not at all Not being able to stop or control worryin = Not at all Worrying too much about different things: 0 = Not at all Trouble relaxin = Not at all Being so restless that it is hard to sit still: 0 = Not at all Becoming easily annoyed or irritable: 1 = Several days Feeling afraid as if something awful might happen: 0 = Not at all Total MARLEN-7 score (0-4 normal; 5-9 mild; 10-14 moderate; 15-21 severe): 1 Source: Developed by Drs. Anthony Alfredo, Melinda Mccracken, Master Benito and colleagues, with an educational vanesa from [employer]. Physical exam (Primary Care) Vital Signs: Last Vital Signs Temp 97.8 F 02/09/25 14:35 Pulse 85 02/09/25 14:35 BP 140/90 H 02/09/25 14:35 Pulse Ox 95 02/09/25 14:35 Oxygen Delivery Method Room Air 02/09/25 14:35 BMI result Body Mass Index 33.6 Tobacco/Smoking Status: Tobacco use Status Tobacco use date assessed 02/09/25 02/09/25 14:38 Patient Tobacco Use Status Current everyday Tobacco 02/09/25 14:38 Tobacco use type Cigarette 02/09/25 14:38 e-Cigarette/Vaping Use Never Used 02/09/25 14:38 PHQ-9: PHQ-9 Score PHQ-9: Total score 3 02/09/25 14:43 Thrive Assessment: Date of Thrive Assessment Date Thrive assessed 04/23/24 02/09/25 14:38 Currently or been in a relationship where the following occur: I choose not to answer Const General: alert; No acute distress Eyes Conjunctivae: conjunctivae normal Resp Auscultation: clear to auscultation bilaterally Cardio Rate: regular rate Rhythm: regular rhythm GI Inspection: Yes normal to inspection Extrem General: Yes normal to inspection and No edema Office Procedures Flu Questionnaire Does the patient have a severe egg allergy?: No Does the patient have severe life threatening allergies?: No Does the patient have a fever or illness today?: No Has the patient ever had Guillain-Gibson Syndrome?: No Has the patient ever had any past reaction to a flu shot?: No Immunizations Fluarix [id number] (PF) 45 mcg (15 mcg x 3)/0.5 mL IM syringe Performing Provider: Ashwin Menendez MD [facility] Administered by: Patti New CMA on 02/09/25 14:42 Dose Route Admin Location Dispensed Lot Number Expiration Date [facility] Hoist Cylinder Loader 0.5 mL IM Left Deltoid 0.5 mL [id number] 10/11/25 [id number] [employer] VIS Given Date VIS Provided VIS Publication Date 02/09/25 Single Vaccine 24 Eligibility Eligibility Date Funding Source Not 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 concern on BP high. advised to get tirzepatide to help with the weight. (2) Hypertension: Code(s): I10 - Essential (primary) hypertension Category: Medical Qualifiers: Hypertension type: essential hypertension Qualified Code(s): I10 - Essential (primary) hypertension Plan: Presently on lisinopril 5 mg once a day. concern on BP high. Advised to finish phentermine but change to this appetite to help with weight (3) Hypercholesterolemia: Code(s): E78.00 - Pure hypercholesterolemia, unspecified Category: Medical Plan: Avoid fried foods, chicken skin, eggs, butter margarine, pastries and meat. 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 After eating do not lie down, allow 3-4 hours before in lie down. And keep the head of bed above 30 degrees to avoid the acid from going up. On omeprazole Plan History of Present Illness The patient is a 44-year-old male presenting for a follow-up visit for management of his chronic conditions. He has a history of obesity and has achieved a weight loss of 20-21 pounds. He has been taking phentermine for weight management but has been unable to get tirzepatide, which he feels is more effective. 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 He is also a smoker. The patient's last colonoscopy and EGD were in September 2024. Recent lab work showed a normal blood count, electrolytes, and renal function, with a hemoglobin A1c of 5.9. Lab results were notable for elevated liver function tests and hypertriglyceridemia, though his triglyceride level improved to 292 in July. The patient reports being under stress while caring for his father who has cancer, and he has been less diligent with his exercise routine. Health Maintenance - Colonoscopy: Last performed in September 2024. - EGD: Last performed in September 2024. - Weight management: Patient has lost approximately 20-21 pounds, with a current weight of around 210-215 pounds after being 250 pounds. - Lipid management: Goals are LDL < 130 and triglycerides < 150. - Vaccinations: Recommended to receive an influenza vaccine. Social History - Tobacco Use: Patient is a smoker. - Exercise: Reports being lax with exercising recently. - Stressors: Reports significant stress related to his father's cancer diagnosis and caregiving responsibilities. Review of Systems - Not discussed. Physical Exam - Vitals: Blood pressure is 144 mmHg systolic. Results - Labs: - Hemoglobin A1c: 5.9. - Triglycerides: 292 as of July. - Blood count: Normal. - Electrolytes: Good. - Renal function: Good. - Liver function: Noted elevation. - Procedures: - Colonoscopy (September 2024): Results not detailed. - EGD (September 2024): Results not detailed. Plan Patient was informed and verbally consented to the use of an ambient scribe for clinic note documentation during this visit. 1. Obesity The patient has had a successful weight loss of approximately 20 pounds. He is currently taking phentermine but reports difficulty obtaining tirzepatide (Zepbound), which he feels is more effective. A prescription for tirzepatide 5 mg will be sent to the pharmacy. He was advised to finish his current supply of phentermine before starting tirzepatide. Follow-up will be monthly while on phentermine and can be extended to every three months once on tirzepatide. 2. Hypertension The patient's blood pressure is elevated at 144 systolic. He will continue his current dose of lisinopril 5 mg once daily. The potential cardiac effects of phentermine, especially with elevated blood pressure, were noted as a concern. 3. Hypercholesterolemia And Hypertriglyceridemia The patient has a history of hypercholesterolemia with very high triglycerides, which have recently improved to 292. The goals of therapy are an LDL of less than 130 and triglycerides less than 150. He will continue his current medication for cholesterol management. 4. Gastroesophageal Reflux Disease With Farris's Esophagus The patient has a history of GERD and Farris's esophagus. He will continue taking omeprazole. 5. Preventive Care The patient will be given an influenza vaccine during this visit. Follow-up is scheduled monthly if on phentermine or every three months if on tirzepatide. The patient was instructed to send a message if there are any issues with obtaining the prescribed medication. Discussion Notes I reviewed the patient's progress with his chronic conditions, noting his 20-pound weight loss. We discussed his difficulty obtaining tirzepatide due to backorders and insurance issues, and I agreed to send a new prescription for the 5 mg dose, as he finds it more effective than phentermine pills. I expressed my concern about his elevated blood pressure of 144 systolic and a potential risk associated with phentermine's effect on the heart. I explained the follow-up requirements, which are monthly visits while on phentermine, but can be extended to every three months once he transitions to tirzepatide. I advised him to contact me if insurance continues to be a barrier to obtaining his medication. We also acknowledged the personal stress he is under due to his father's illness and reinforced the importance of taking care of his own health. Patient Instructions - Continue taking your current medications as prescribed, including lisinopril for blood pressure and omeprazole for acid reflux. - You may finish your current supply of phentermine. - I have sent a new prescription for Zepbound (tirzepatide) 5 mg to your pharmacy. - Please let our office know if you have any problems with your insurance covering the Zepbound prescription. - We will give you a flu shot today before you leave. - If you continue taking phentermine, you must come in for a visit every month. - Once you start Zepbound, you will only need to follow up every three months. - Try to continue exercising, as it is important to take care of yourself, especially during stressful times. Orders: Orders Influenza [id number] Immunization Today Z23 - Encounter for immunization
[2025-02-09 14:35] VITALS: BP 140/90; PULSE 85; TEMP 36.6; O2SAT 95; BMI 33.6
--- OUTSIDE RECORDS SUMMARY | 2025-02-09 18:55 | XMS_ITS | Clinical Summary ---
Author Organization [facility] Address [address] [place] [address] Care Team Providers Care Hogshead Filler Name Role Phone Unavailable Primary Care Provider [...] Last Done Comments Hepatitis C Screening 1981 MMR Vaccines (1 of 1 - Standard series) 1982 PHQ-9 Depression Screen 1993 Varicella Vaccines (1 of 2 - 13+ 2-dose series) 1994 Annual Preventive Exam 08/15/1999 Complete Annual HRA 08/15/1999 MARLEN-7 Anxiety Screen 08/15/1999 DTaP,Tdap,and Td Vaccines (1 - Tdap) 2000 Hepatitis B Vaccines (1 of 3 - 19+ 3-dose series) 06/2000 COVID-19 Vaccine ( - season) 2024 Influenza Vaccine (#1) 2024 01/24/2020 RSV Vaccine (SCDM) (1 - 1-dose 75+ series) 2056 Insurance LISSY
== END 2025-02-09 14:51 | disposition home or self-care (01) ==
LOC: HO.HMCH 14:33
PROVIDERS: PCP Internal Medicine; Visit Provider Internal Medicine
DX: I10 Essential (primary) hypertension (principal); E66.9 Obesity, unspecified; Z68.33 Body mass index [BMI] 33.0-33.9, adult; E78.00 Pure hypercholesterolemia, unspecified; K22.70 Barrett's esophagus without dysplasia; Z23 Encounter for immunization

== ENCOUNTER → 2025-02-09 14:32 | Outpatient (BNVA) | payer OTHER, SELFPAY | PROVIDERS: PCP Internal Medicine; Visit Provider Internal Medicine | DX: I10 Essential (primary) hypertension (principal); E66.9 Obesity, unspecified; E78.00 Pure hypercholesterolemia, unspecified; K22.70 Barrett's esophagus without dysplasia; E78.1 Pure hyperglyceridemia; K21.9 Gastro-esophageal reflux disease without esophagitis; Z23 Encounter for immunization; Z68.33 Body mass index [BMI] 33.0-33.9, adult | CPT/HCPCS: 90471; 90656; 99212 ==

== ENCOUNTER 2025-02-21 10:35 | Outpatient (AMB) | payer OTHER, SELFPAY ==
--- NOTE | 2025-02-21 10:36 | MHC.OFFVIS ---
Vital Signs 02/21/25 10:39 Height 5 ft 8 in Weight 220 lb 7.396 oz BMI 33.5 BP 152/83 H Blood Pressure Location Lt brachial Position Sitting Pulse 72 Intake Visit Reasons: 4 mo f/u Elevated LFT's, fatty liver Intake Note: Da presents in the office as a 4 month follow up. CC: no concerns at this time. Allergies metronidazole (From FLAGYL) Allergy (Severe, Verified 02/21/25 10:44) SWELLING THROAT HPI Comments Details: 43 y.o M with PMH of obesity, ELIZABETH, gerd, fatty liver, tobacco use, prev [facility] pt here for follow up. Reports almost 4 months ago started having loose stools 2-3 times a day without blood. No abd pain with the bowels. No nausea or vomiting. No new meds. No unintentional weight loss. Of note - pt previously has been worked up for abnl appearance of pancreas: PANCREAS: The head and uncinate process of the pancreas are prominent measuring up to 4.3 cm in AP dimension, upper normal 3 cm. The pancreas is normal in signal and demonstrates normal enhancement. No focal lesion. The main pancreatic duct does not appear dilated. Fam hx of CRC - second degree relatives. Pat aunt had CRC at age 70s, pat uncle age CRC in 50s. Smokes 0.5 PPD. Drinks 3-6 drinks/weekend. EGD/colo 09/13/24: ESOPHAGUS: Mildly tortuous esophagus without stricture or ring. Hiatal hernia, inlet patch and a 2 cms segement of possible Farris's - biopsies obtained for histology and ARTIS STOMACH: Diffuse gastritis DUODENUM: Normal - biopsied to check for celiac sprue Colonoscopy Findings: One small polyp was removed Moderate to severe diverticulosis seen in the left and transerse colon Moderate hemorrhoids on retroflexed exam. Path: A. Small bowel, biopsy: Small bowel mucosa with preserved villi and no specific change; no evidence of celiac disease. B. Gastric antrum, biopsy: Gastric antral mucosa with reactive changes, congestion and ectatic vessels, focal gland atrophy, intestinal metaplasia (complete) and minimal chronic inactive gastritis; negative for H.pylori and dysplasia. C. Gastric body, biopsy: Gastric body and antral mucosa with minimal chronic inactive gastritis; negative for H.pylori, intestinal metaplasia and dysplasia. D. Esophagus, distal, biopsy: Columnar mucosa with hyperplasia, mild inflammation, and intestinal metaplasia consistent with Farris's mucosa; no squamous mucosa present. E. Esophagus, proximal, biopsy: Gastric-type mucosa with mild chronic inflammation; negative for intestinal metaplasia and dysplasia; no squamous component present (? inlet patch; endoscopic correlation necessary). F. Colon, right, biopsy: Colonic mucosa with no specific change; no evidence of microscopic colitis. G. Colon, left, biopsy: Colonic mucosa with lymphoid aggregate, minor crypt distortion, and focal hyperplastic changes suggesting hyperplastic polyp (endoscopic correlation necessary); no evidence of microscopic colitis. H. Colon, sigmoid at 50 cm, biopsy: Fragment of colonic mucosa with no specific change and fragment of colonic mucosa with hyperplastic changes suggesting hyperplastic polyp (endoscopic correlation necessary) I. Colon, rectal polyp, biopsy: Hyperplastic polyp 10/19/24: Here for telehealth visit. EGD/colo findings reviewed. Pt reports no acute GI issues at this time. Reviewed that has antral GIM complete type which is typically low risk for progression to NET or gastric adeno. No routine surveillance recommended. In terms of BE, this is short segment. Would recommend repeat EGD in 5 years. Next colo recommended in 5 years due to fam hx. 02/21/25: Here for follow up for elevated LFTs and hepatic steatosis. Was on phenteramine which he didnt tolerate well. Was on zepbound 2.5 briefly but now increased to 5 mg. Reports 30 lbs weight loss since June which he was congratulated on! Otherwise no GI complaints including abd pain, N,V, rectal bleeding. [facility] Medical History Smoker LLQ abdominal pain Puncture wound of skin from metal nail Injury of toe on left foot Umbilical hernia Left knee pain Headache Productive cough Right-sided chest wall pain Tooth pain Colitis Asthma Allergic rhinitis ELIZABETH (obstructive sleep apnea) Obesity (BMI 30-39.9) Hypersomnia Hypertension Fatty liver Vitamin D deficiency Gout Tobacco abuse GERD (gastroesophageal reflux disease) Hypercholesterolemia Obesity (BMI 30-39.9) Alcohol abuse Tear of biceps tendon Medial epicondylitis Surgical History Hx of colonoscopy History of esophagogastroduodenoscopy (EGD) History of surgery on arm History of left inguinal hernia repair (~2021) History of umbilical hernia repair (~2021) History of inguinal hernia repair Family History Father Hypertension Mother No problems noted. Brother No problems noted. Sister No problems noted. Paternal Uncle Colon cancer Paternal Aunt Colon cancer Social History Housing: House Are you a primary wound care coordinator to a significant other at home: No Do you presently have visiting nurse or other home services: No Alcohol intake: current Alcohol intake frequency: a few times a week Comment: once a week 2 drinks Patient Tobacco Use Status: Current everyday Tobacco user Tobacco use type: Cigarette Cigarette Packs Per Day: 0.5 Cigarettes Per Day: 10.0 Years [facility] 5-6 cigarettes a day e-Cigarette/Vaping Use: Never Used Second Hand Smoke Exposure: No service: No Current occupational status: employed 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 - [employer]. Cognitive needs: No Hearing needs: No Vision needs: Yes (Glasses) Review of Systems Const All systems reviewed & are unremarkable except as noted in HPI and below Physical Exam Exam Exam: No apparent distress Nonicteric Abdomen soft, nondistended Alert and oriented x3, normal gait Vital Signs: Last Vital Signs Pulse 72 02/21/25 10:39 BP 152/83 H 02/21/25 10:39 BMI result Body Mass Index 33.5 Assessment & Plan Assessment & Plan (1) Elevated LFTs: Code(s): R7.89 - Other specified abnormal findings of blood chemistry Category: Medical (2) Impaired fasting blood sugar: Code(s): R73.01 - Impaired fasting glucose Category: Medical (3) Obesity (BMI 30-39.9): Code(s): E66.9 - Obesity, unspecified Category: Medical Plan Congratulated on weight loss and reveiwed that expect improvement in hepatic steatosis with control of metabolic factors. Pt does not drink etOH. Hep serologies neg. Plan: - CBC, liver panel - A1c and lipid panel - If Fib 4 low, will be discharged back to PCP practice. Follow up contingent on above. Orders: Orders Liver Panel Today - Other specified abnormal findings of blood chemistry Complete Blood Count no Diff Today - Other specified abnormal findings of blood chemistry Hemoglobin A1c Today R73.01 - Impaired fasting glucose Lipid Panel Today E78.1 - Pure hyperglyceridemia Coding Level of Care Code Est Pt Level 4 (01662) Diagnoses Elevated LFTs R79.89 Impaired fasting blood sugar R73.01 Obesity (BMI 30-39.9) E66.9
[2025-02-21 10:39] VITALS: BP 152/83; PULSE 72; BMI 33.5
--- OUTSIDE RECORDS SUMMARY | 2025-02-21 12:28 | XMS_ITS | Clinical Summary ---
Author Organization [facility] Address [address] [place] [address] Care Team Providers Care Supervisor Particleboard Name Role Phone Unavailable Primary Care Provider [...]
== END 2025-02-21 12:48 | disposition home or self-care (01) ==
LOC: HO.HGI 10:36
PROVIDERS: PCP Internal Medicine; Visit Provider Internal Medicine
DX: R79.89 Other specified abnormal findings of blood chemistry (principal); R73.01 Impaired fasting glucose; E66.9 Obesity, unspecified
CPT/HCPCS: 99214

== ENCOUNTER → 2025-02-21 10:35 | Outpatient (BNVA) | payer OTHER, SELFPAY | PROVIDERS: PCP Internal Medicine; Visit Provider Internal Medicine | DX: R79.89 Other specified abnormal findings of blood chemistry (principal); R73.01 Impaired fasting glucose; E66.9 Obesity, unspecified; Z68.33 Body mass index [BMI] 33.0-33.9, adult; F17.210 Nicotine dependence, cigarettes, uncomplicated | CPT/HCPCS: 99212 ==

== ENCOUNTER 2025-02-23 14:35 | Outpatient (REF) | payer OTHER, SELFPAY ==
[2025-02-23 16:17] LABS: Hematocrit 43.3 % (42.0-52.0); Hemoglobin 14.6 g/dl (14.0-18.0); Mean Corpuscular HGB Conc 33.7 g/dl (31.0-36.0); Mean Corpuscular Hemoglobin 31.1 pg (27.0-33.0); Mean Corpuscular Volume 92.3 fL (80.0-98.0); NRBC Abs Auto 0.000 X10*3/uL (0.0-0.012); NRBC Pct Auto 0.0 /100WBC (0.0-0.2); Platelet Count 317 X10*3/uL (160-400); Red Blood Count 4.69 X10*6/uL (4.60-5.80); White Blood Count 11.5 X10*3/uL (4.8-10.8)
[2025-02-23 16:38] LABS: Alanine Aminotransferase 37 U/L (0-40); Albumin Level 4.5 g/dL (3.5-5.0); Alkaline Phosphatase 64 U/L (39-117); Aspartate Amino Transferase 31 U/L (5-37); Cholesterol 191 mg/dL (<200); HDL Cholesterol 31 mg/dL (>40); Total Protein 7.3 g/dL (6.5-8.0); Triglycerides 327 mg/dL (<150)
--- OUTSIDE RECORDS SUMMARY | 2025-02-23 18:04 | XMS_ITS | Clinical Summary ---
Author Organization [facility] Address [address] [place] [address] Care Team Providers Care Credit And Collections Representative Name Role Phone Unavailable Primary Care Provider [...]
== END 2025-02-23 14:36 | disposition home or self-care (01) ==
LOC: HO.HMGCLDS 14:35
PROVIDERS: PCP Internal Medicine; Visit Provider Internal Medicine
DX: E78.1 Pure hyperglyceridemia (principal); R73.01 Impaired fasting glucose; R79.89 Other specified abnormal findings of blood chemistry
CPT/HCPCS: 36415; 80061; 80076; 83036; 85027

== ENCOUNTER 2025-03-23 08:25 | Outpatient (AMB) | payer OTHER, SELFPAY ==
--- NOTE | 2025-03-23 12:11 | MHC.OFFVISWM ---
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 Was seen by his PCP on 08/06, 09/05, 10/06, 12/06 and 02/05. During that time he has lost 30lbs. However his weight has remained stable since 12/06 and he cannot lose more weight Wakes up: 9am, Sleeps: 12am Breakfast: x4/wk: 10pm (eggs) Lunch: x5/wk (burger, fruit smoothies, sandwiches, soup) Dinner: 6pm (steaks, fish) Snacks: 2pm (fruits, chips) Exercise: has home treadmill (inclines and tracks calories) Beverages: Coffee: 2 cups/d (creamer), Tea: rarely, Soda: diet soda occasionally, Juice: zero calorie, ETOH: 1/wk (6-8 beers) Tests reviewed: EGD: Job 10/06: 5cm HH, Path: ward's esophagus CT-chest: 2021: moderate size HH PFSH Medical History (Updated 03/23/25 @ 12:36 by Jarad Hadley MD) Hiatal hernia BMI 33.0-33.9,adult Smoker LLQ abdominal pain Puncture wound of skin from metal nail Injury of toe on left foot Umbilical hernia Left knee pain Headache Productive cough Right-sided chest wall pain Tooth pain Colitis Asthma Allergic rhinitis ELIZABETH (obstructive sleep apnea) Obesity (BMI 30-39.9) Hypersomnia Hypertension Fatty liver Vitamin D deficiency Gout Tobacco abuse GERD (gastroesophageal reflux disease) Hypercholesterolemia Obesity (BMI 30-39.9) Alcohol abuse Tear of biceps tendon Medial epicondylitis Surgical History Hx of colonoscopy History of esophagogastroduodenoscopy (EGD) History of surgery on arm History of left inguinal hernia repair (~2021) History of umbilical hernia repair (~2021) History of inguinal hernia repair Family History Father Hypertension Mother No problems noted. Brother No problems noted. Sister No problems noted. Paternal Uncle Colon cancer Paternal Aunt Colon cancer Social History Housing: House Are you a primary health and social care teacher to a significant other at home: No Do you presently have visiting nurse or other home services: No Alcohol intake: current Alcohol intake frequency: a few times a week Comment: once a week 2 drinks Patient Tobacco Use Status: Current everyday Tobacco user Tobacco use type: Cigarette Cigarette Packs Per Day: 0.5 Cigarettes Per Day: 10.0 Years Smoked: [facility] 04/2024 5-6 cigarettes a day e-Cigarette/Vaping Use: Never Used Second Hand Smoke Exposure: No service: No Current occupational status: employed 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 - [employer]. Cognitive needs: No Hearing needs: No Vision needs: Yes (Glasses) Telehealth Telehealth Telehealth Platform: Telephone Location of provider rendering services: practice address Location of patient: address on file Patient Identification confirmed using: Name, : Yes Telehealth method: voice only Patient verbally consented to treatment: Yes Patient verbally consented to billing insurance company: Yes Patient informed of any privacy concerns related to visit: Yes Assessment & Plan Assessment & Plan (1) Obesity (BMI 30-39.9): Comment: BMI= 38.2 .WEIGHT SEEMS TO BE AT A STANDSTILL. Code(s): E66.9 - Obesity, unspecified Category: Medical Plan: 1.??The patient has severe GERD with Ward's esophagus. In addition, he has a moderate size diaphragmatic hernia based on recent CT and EGD. Best plan would be repair for concomitant diaphragmatic hernia repair and lap sleeve gastrectomy. If diaphragmatic or ventral hernias are present at time of surgery, these will be repaired laparoscopically as well. I emphasized the importance of close follow-up, adherence to instructions and good communication. The surgery does not replace the need to change your lifestlyle which is the cause of the obesity problem. The surgery provides the motivation to try again to change your lifestyle, it reduces the appetite and make the transition to a better lifestyle easier and doubles the amount of weight you would lose compared to doing the lifestyle change without the surgery. You will need to be on a liquid diet with protein shakes for 2 weeks before surgery to maximize weight loss and boost your nutritional status to recover better from surgery and also for the first two weeks after surgery to let the stomach heal before we introduce other foods. After the first 2 weeks we will introduce protein bars and soft foods like scrambled eggs, cottage cheese and yogurt and after the 6th week will introduce meat, fish and cooked vegetables in small amounts. Over time you should be able to eat everything in small amounts. Side effects like nausea, vomiting, heartburn or abdominal pain are not common in the practice unless you are not following in the practice. This operation requires lifetime commitment to following in our practice and communication with me. You will much less weight and experience side effects if you don?t communicate or not following in the practice. Complications are rare and in our practice is about 1/10 of the national average. However, you can develop bleeding that may require transfusion (hasn?t happened for year in the practice), you may from complications (we did not have any deaths in the practice) and infections. Infections are usually a result of breakdown in communication or not understanding or following directions correctly. They are difficult to treat, they can happen during the first 6 weeks, they may require to be in the hospital for weeks or even months, not being able to eat by mouth and you may have drains and surgeries to try and correct the issue. Other risks and complications include possible conversion to an open procedure, leaks, small bowel obstruction, blood clots, cardiac, or pulmonary complications, as computer terminal operator complications such as ulcers, insufficient weight loss and vitamin deficiencies. 2. Nutritional counseling. Start with one CELEBRATE REBUILD protein (buy online with the link I gave you) shake (ONE scoop in 8oz low fat unsweetened almond milk) at 10am-12pm, 1 protein bar (CELEBRATE protein bars, buy at [facility] [employer] [facility], buy online with the link I gave you) ) at 1pm-3pm, another CELEBRATE REBUILD protein shake (ONE scoop in 8oz low fat unsweetened almond milk) at 4pm-6pm, dinner at 7pm (8 forks of protein and 8 forks of salad/vegetables) AND another another Celebrate protein bar at 9pm-11pm So you do 2 protein shakes, 2 protein bars and one meal per day. Meal to include lean meat (beef, fish, pork, turkey, chicken), or croatian yogurt, or egg whites, or beans with a salad with olive oil and fruits (berries, pears, apples, kiwi). Avoid salt, breads, potatoes, rice, pasta, desserts. 3. Each shake would be drunk slowly, like coffee in a period of 2 hours. 4. Cut each bar in 4 pieces and eat each piece in 30min ?to make each bar last 2 hours. 5. I emphasized the importance of measuring accurately the food portion and measure it when serving the food in plate 6. The meal portions include 8 full-size forks of meat and 8 full-size forks of salad. You always eat the meat portion but you can replace up to 4 forks for salad/vegetables with rice, potatoes or pasta, or a fruit ?if you like. The less you do it the better weight loss will be. 7. One full-size fork is what it can be scooped on the fork without falling aside and not what can be bit with the fork. Use regular forks like those you find in a typical restaurant. 8.? Please buy the body composition scale we discussed and send me weight measurements as soon as possible and then once a week. Always include your diet and exercise plan. 9. Start treadmill with an incline of 2.0 and speed of 3.0. Increase incline by 1 every 3 min to a max incline of 8.0, stay 3min at 8.0 and then return to 2.0 and repeat same steps until calorie goal is met. Goal is to burn 2000 calories per week on exercise, which means either 300 calories daily. 10. Continue the Zepbound. Let me know when you have one shot left. Let me know if you have any nausea, vomiting, diarrhea, constipation or GERD. 11. Goal is to lose at least 1.5-2lbs per week 12. Goal to lose 10% of your weight before surgery, which is about 17lbs. Ultimate weight goal: 200lbs before surgery 13. Please follow the diet plan exactly without any change. If you don't like something about the plan or you feel hungry you need to communicate with me so I can help you revise the plan. You should not change the plan yourself. 14. Emphasized the importance of monitoring the blood pressure daily in am when wakes up and two more times throughout the day. If systolic blood pressure is 110 mmHg, or less I explained to the patient that needs to notify me. Also I explained the symptoms of orthostatic hypotension (dizziness and lightheadedness) for which the patient also needs to notify me. 15. To be scheduled for EGD and [facility] to assess the Ward's esophagus, the hernia as well as the degree of GERD. The possibility of biopsies was discussed. Patient needs to avoid use of NSAIDs and aspirin for 1 week prior to EGD. You must be on liquids only the day before your endoscopy. Risks of perforation and bleeding was discussed with the patient. This will be an outpatient procedure with IV sedation. Orders: Orders Insulin Today E66.9 - Obesity, unspecified, I10 - Essential (primary) hypertension, K21.9 - Gastro-esophageal reflux disease without esophagitis, K44.9 - Diaphragmatic hernia without obstruction or gangrene, Z68.33 - Body mass index [BMI] 33.0-33.9, adult Comprehensive Met. Panel Today E66.9 - Obesity, unspecified, I10 - Essential (primary) hypertension, K21.9 - Gastro-esophageal reflux disease without esophagitis, K44.9 - Diaphragmatic hernia without obstruction or gangrene, Z68.33 - Body mass index [BMI] 33.0-33.9, adult Vitamin B12 and Folate Today E66.9 - Obesity, unspecified, I10 - Essential (primary) hypertension, K21.9 - Gastro-esophageal reflux disease without esophagitis, K44.9 - Diaphragmatic hernia without obstruction or gangrene, Z68.33 - Body mass index [BMI] 33.0-33.9, adult C Reactive Protein Today E66.9 - Obesity, unspecified, I10 - Essential (primary) hypertension, K21.9 - Gastro-esophageal reflux disease without esophagitis, K44.9 - Diaphragmatic hernia without obstruction or gangrene, Z68.33 - Body mass index [BMI] 33.0-33.9, adult Vitamin B1 Today E66.9 - Obesity, unspecified, I10 - Essential (primary) hypertension, K21.9 - Gastro-esophageal reflux disease without esophagitis, K44.9 - Diaphragmatic hernia without obstruction or gangrene, Z68.33 - Body mass index [BMI] 33.0-33.9, adult Vitamin A Today E66.9 - Obesity, unspecified, I10 - Essential (primary) hypertension, K21.9 - Gastro-esophageal reflux disease without esophagitis, K44.9 - Diaphragmatic hernia without obstruction or gangrene, Z68.33 - Body mass index [BMI] 33.0-33.9, adult US abdomen comp w elastography Today E66.9 - Obesity, unspecified, I10 - Essential (primary) hypertension, K21.9 - Gastro-esophageal reflux disease without esophagitis, K44.9 - Diaphragmatic hernia without obstruction or gangrene, Z68.33 - Body mass index [BMI] 33.0-33.9, adult Hemoglobin A1c Today E66.9 - Obesity, unspecified, I10 - Essential (primary) hypertension, K21.9 - Gastro-esophageal reflux disease without esophagitis, K44.9 - Diaphragmatic hernia without obstruction or gangrene, Z68.33 - Body mass index [BMI] 33.0-33.9, adult H Pylori Breath Test Today E66.9 - Obesity, unspecified, I10 - Essential (primary) hypertension, K21.9 - Gastro-esophageal reflux disease without esophagitis, K44.9 - Diaphragmatic hernia without obstruction or gangrene, Z68.33 - Body mass index [BMI] 33.0-33.9, adult Complete Blood Count Auto Diff Today E66.9 - Obesity, unspecified, I10 - Essential (primary) hypertension, K21.9 - Gastro-esophageal reflux disease without esophagitis, K44.9 - Diaphragmatic hernia without obstruction or gangrene, Z68.33 - Body mass index [BMI] 33.0-33.9, adult Lipid Panel Today E66.9 - Obesity, unspecified, I10 - Essential (primary) hypertension, K21.9 - Gastro-esophageal reflux disease without esophagitis, K44.9 - Diaphragmatic hernia without obstruction or gangrene, Z68.33 - Body mass index [BMI] 33.0-33.9, adult IRON PROFILE Today E66.9 - Obesity, unspecified, I10 - Essential (primary) hypertension, K21.9 - Gastro-esophageal reflux disease without esophagitis, K44.9 - Diaphragmatic hernia without obstruction or gangrene, Z68.33 - Body mass index [BMI] 33.0-33.9, adult Zinc Today E66.9 - Obesity, unspecified, I10 - Essential (primary) hypertension, K21.9 - Gastro-esophageal reflux disease without esophagitis, K44.9 - Diaphragmatic hernia without obstruction or gangrene, Z68.33 - Body mass index [BMI] 33.0-33.9, adult TSH reflex Free T4 Today E66.9 - Obesity, unspecified, I10 - Essential (primary) hypertension, K21.9 - Gastro-esophageal reflux disease without esophagitis, K44.9 - Diaphragmatic hernia without obstruction or gangrene, Z68.33 - Body mass index [BMI] 33.0-33.9, adult Ferritin Today E66.9 - Obesity, unspecified, I10 - Essential (primary) hypertension, K21.9 - Gastro-esophageal reflux disease without esophagitis, K44.9 - Diaphragmatic hernia without obstruction or gangrene, Z68.33 - Body mass index [BMI] 33.0-33.9, adult Vitamin D 25-OH Total Today E66.9 - Obesity, unspecified, I10 - Essential (primary) hypertension, K21.9 - Gastro-esophageal reflux disease without esophagitis, K44.9 - Diaphragmatic hernia without obstruction or gangrene, Z68.33 - Body mass index [BMI] 33.0-33.9, adult ECG 12 lead EKG Today E66.9 - Obesity, unspecified, I10 - Essential (primary) hypertension, K21.9 - Gastro-esophageal reflux disease without esophagitis, K44.9 - Diaphragmatic hernia without obstruction or gangrene, Z68.33 - Body mass index [BMI] 33.0-33.9, adult Referrals Behavioral Health Referral E66.9 - Obesity, unspecified, I10 - Essential (primary) hypertension, K21.9 - Gastro-esophageal reflux disease without esophagitis, K44.9 - Diaphragmatic hernia without obstruction or gangrene, Z68.33 - Body mass index [BMI] 33.0-33.9, adult Nutrition/Dietitian Referral E66.9 - Obesity, unspecified, I10 - Essential (primary) hypertension, K21.9 - Gastro-esophageal reflux disease without esophagitis, K44.9 - Diaphragmatic hernia without obstruction or gangrene, Z68.33 - Body mass index [BMI] 33.0-33.9, adult
== END 2025-03-23 13:10 | disposition home or self-care (01) ==
LOC: HO.HBS 08:25
PROVIDERS: PCP Internal Medicine; Visit Provider Surgery
DX: E66.811 Obesity, class 1 (principal); Z68.33 Body mass index [BMI] 33.0-33.9, adult
CPT/HCPCS: 98011

== ENCOUNTER → 2025-04-13 11:15 | Outpatient (REF) | payer OTHER, SELFPAY ==
--- NOTE | 2025-04-13 11:23 | ECG_ITS ---
Test Reason : obesity Blood Pressure : */* mmHG Vent. Rate : 79 BPM Atrial Rate : 79 BPM P-R Int : 168 ms QRS Dur : 86 ms QT Int : 356 ms P-R-T Axes : 60 57 69 degrees QTcB Int : 408 ms Normal sinus rhythm Normal ECG No previous ECGs available Referred By: Jarad Hadley Electronically Signed By: JENI JACOME
[2025-04-13 11:39] LABS: MANUAL DIFF FLAG NO
[2025-04-13 11:58] LABS: Hematocrit 45.1 % (42.0-52.0); Hemoglobin 15.2 g/dl (14.0-18.0); Imm Gran Abs Auto 0.22 X10*3/uL (0.00-0.03); Imm Gran Pct Auto 1.7 % (0.0-0.4); Lymphocytes Absolute Auto 2.4 X10*3/uL (1.2-4.9); Mean Corpuscular HGB Conc 33.7 g/dl (31.0-36.0); Mean Corpuscular Hemoglobin 30.8 pg (27.0-33.0); Mean Corpuscular Volume 91.5 fL (80.0-98.0); NRBC Abs Auto 0.000 X10*3/uL (0.0-0.012); NRBC Pct Auto 0.0 /100WBC (0.0-0.2); Platelet Count 357 X10*3/uL (160-400); Red Blood Count 4.93 X10*6/uL (4.60-5.80); White Blood Count 13.2 X10*3/uL (4.8-10.8)
[2025-04-13 12:45] LABS: Alanine Aminotransferase 32 U/L (0-40); Albumin Level 4.5 g/dL (3.5-5.0); Alkaline Phosphatase 63 U/L (39-117); Anion Gap 12 (12-20); Aspartate Amino Transferase 35 U/L (5-37); Blood Urea Nitrogen 12 mg/dL (9-16); Calcium 9.7 mg/dL (8.4-10.2); Carbon Dioxide 27 mmol/L (22-29); Chloride 107 mmol/L (96-108); Cholesterol 196 mg/dL (<200); Estimated Glomerular Filt Rate > 60; HDL Cholesterol 31 mg/dL (>40); Iron 147 mcg/dL (45-160); Percent Iron Saturation 52 % (15-50); Potassium 4.8 mmol/L (3.3-5.1); Sodium 141 mmol/L (135-145); Total Iron Binding Capacity 284 mcg/dL (228-428); Total Protein 7.5 g/dL (6.5-8.0); Triglycerides 208 mg/dL (<150); Unsaturated Iron Binding 137 ug/dL
--- OUTSIDE RECORDS SUMMARY | 2025-04-13 12:52 | XMS_ITS | Clinical Summary ---
Author Organization [facility] Address [address] [place] [address] Care Team Providers Care Human Service Worker Name Role Phone Unavailable Primary Care Provider [...]
[2025-04-13 13:05] LABS: Ferritin 370 ng/mL (20-250)
[2025-04-13 13:14] LABS: Folate 4.9 ng/mL (> or = 4.0); Vitamin B12 689 pg/mL (200-900)
== END ==
LOC: HO.CARD 11:15
PROVIDERS: PCP Internal Medicine; Visit Provider Surgery
DX: K21.9 Gastro-esophageal reflux disease without esophagitis (principal); K44.9 Diaphragmatic hernia without obstruction or gangrene; I10 Essential (primary) hypertension; E66.9 Obesity, unspecified; Z68.33 Body mass index [BMI] 33.0-33.9, adult
CPT/HCPCS: 36415; 80053; 80061; 82306; 82607; 82728; 82746; 83036; 83525; 83540; 84425; 84443; 84590; 84630; 85025; 86140; 93005

== ENCOUNTER → 2025-04-13 11:23 | Outpatient (BNV) | payer OTHER, SELFPAY | PROVIDERS: PCP Internal Medicine; Visit Provider Internal Medicine | DX: E66.9 Obesity, unspecified (principal) | CPT/HCPCS: 93010 ==